=== PATIENT | female | born 1955 | race Hispanic/Latino ===

== ENCOUNTER 2019-03-22 07:29 | Day surgery (SDC) | payer OTHER ==
--- OUTSIDE RECORDS SUMMARY | 2019-03-22 07:31 | XMS REPORT | Clinical Summary ---
:1955 Author Organization [facility] Address [address] [place] [address] Care Team Providers Name Role Phone Unavailable Primary Care Provider Unavailable Allergies Not on File Medications Not on file Active Problems Not on file Encounters Date Type Specialty Care Team Description 01/21/2019 Hospital Encounter Radiology Greg Trinidad Chronic left-sided low back pain with left-sided sciatica; MD Ankit Chronic midline low back pain with left-sided sciatica 01/21/2019 Hospital Encounter Radiology Greg Trinidad Chronic left-sided low back pain with left-sided sciatica; MD Ankit Chronic midline low back pain with left-sided sciatica 01/21/2019 Hospital Encounter Radiology Greg Trinidad Chronic midline low MD Ankit back pain with left-sided sciatica 01/21/2019 Hospital Encounter Radiology Greg Trinidad Chronic midline low MD Ankit back pain with left-sided sciatica 01/21/2019 Outside Orders Central Scheduling Greg Trinidad Chronic left- sided low back pain with left-sided sciatica (Primary Dx); MD Ankit Chronic midline low back pain with left-sided sciatica 01/21/2019 Outside Orders Central Scheduling Greg Trinidad Chronic midline low MD Ankit back pain with left-sided sciatica (Primary Dx) after 03/21/2018 Social History Tobacco Use Types Packs/Day Years Used Date Never Assessed Sex Assigned at Date Recorded Not on file Job Start Date Occupation Industry Not on file Not on file Not on file Travel History Travel Start Travel End No recent travel history available. Last Filed Vital Signs Not on file Plan of Treatment Not on file Procedures Procedure Name Priority Date/Time Associated Diagnosis Comments XR LUMBAR SPINE Routine 01/21/2019 12:19 PM Chronic left-sided Results for this COMP WITH FLEX&EXT CDT low back pain with procedure are in left-sided sciatica the results Chronic midline low section. back pain with left-sided sciatica after 03/21/2018 Results XR lumbar spine comp with flex & ext (01/21/2019 12:19 PM CDT) Specimen Narrative Performed At FINAL REPORT [facility] LUMBAR SPINE X-RAY - SEVEN VIEWS HISTORY: chronic midline low back pain with left sided sciatica COMPARISON: None available. FINDINGS: Bones: No acute displaced fracture. Osseous alignment is within normal limits. No instability on flexion and extension views. Joints: Moderate disc space narrowing and foraminal narrowing at L5-S1. The remaining lumbar spine is unremarkable. Soft tissues: The soft tissues appear unremarkable. IMPRESSION: Moderate disc space narrowing and foraminal narrowing at L5-S1. Signed: Lc Austin MD Report Verified Date/Time:01/21/2019 13:16:54 Procedure Note Interface, External Ris In - 01/21/2019 1:19 PM CDT FINAL REPORT LUMBAR SPINE X-RAY - SEVEN VIEWS HISTORY: chronic midline low back pain with left sided sciatica COMPARISON: None available. FINDINGS: Bones: No acute displaced fracture. Osseous alignment is within normal limits. No instability on flexion and extension views. Joints: Moderate disc space narrowing and foraminal narrowing at L5-S1. The remaining lumbar spine is unremarkable. Soft tissues: The soft tissues appear unremarkable. IMPRESSION: Moderate disc space narrowing and foraminal narrowing at L5-S1. Signed: Lc Austin MD Report Verified Date/Time: 01/21/2019 13:16:54 Performing Organization Address City/State/Zipcode Phone Number [facility] after 03/21/2018 Insurance Payer Benefit Plan / Group Subscriber ID Type Phone Address [facility] CHO[facility] xxxxxxxxxxxx HMO/POS [phone] CHOICE EXCHANGE
--- OUTSIDE RECORDS SUMMARY | 2019-03-22 07:32 | XMS REPORT ---
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
--- OUTSIDE RECORDS SUMMARY | 2019-03-22 07:32 | XMS REPORT ---
:1955 Author Organization eClinicalWorks Care Team Providers Name Role Phone Prosper Jefferson Provider Role Unavailable Allergies No Known Allergies [...]
--- OUTSIDE RECORDS SUMMARY | 2019-03-22 07:32 | XMS REPORT ---
:1955 Author Organization eClinicalWorks Care Team Providers Name Role Phone Nicholas Martinez Provider Role Unavailable Allergies, Adverse Reactions, Alerts Substance Reaction Event Type N.K.D.A. Info Not Available Non Drug Allergy Problems Problem Type Condition Code Onset Dates Condition Status Assessment 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 classified elsewhere without behavioral disturbance Assessment Mixed hyperlipidemia E78.2 Active Assessment Depression with anxiety F41.8 Active Assessment Prediabetes R73.03 Active Assessment Adult BMI 29.0-29.9 kg/sq m Z68.29 Active Assessment Alzheimer''s disease, unspecified G30.9 Active Problem Mixed hyperlipidemia E78.2 Active Problem 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 classified elsewhere without behavioral disturbance Problem Depression with anxiety F41.8 Active Assessment HTN, goal below 140/90 I10 Active Problem HTN, goal below 140/90 I10 Active Problem Alzheimer''s disease, unspecified G30.9 Active Medications Medication Code Code Instructions Start End Status Dosage System Date Date Atorvastatin [facility] 99287213167 10 MG Orally Active 1 tablet Calcium Once a day Propranolol HCl ND 99948455223 10 MG Orally Active 1 tablet Once a day on an empty stomach Memantine HCl ND 08475927919 10 MG Orally Active 1 tablet Twice a day Donepezil HCl ND 28870579208 10 MG Orally Active 2 tablet Twice a day at bedtime Methocarbamol [facility] 73298308405 500 MG Orally Active 1 tablet Three times a day Results No Known Results Summary Purpose eClinicalWorks Submission
--- OUTSIDE RECORDS SUMMARY | 2019-03-22 07:32 | XMS REPORT ---
:1955 Author Organization eClinicalWorks Care Team Providers Name Role Phone Nicholas Martinez Provider Role Unavailable Allergies, Adverse Reactions, Alerts Substance Reaction Event Type N.K.D.A. Info Not Available Non Drug Allergy Problems Problem Type Condition Code Onset Dates Condition Status Assessment Depression with anxiety F41.8 Active Assessment HTN, goal below 140/90 I10 Active Assessment Mixed hyperlipidemia E78.2 Active Problem Mixed hyperlipidemia E78.2 Active Problem 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 classified elsewhere without behavioral disturbance Problem Depression with anxiety F41.8 Active Assessment Well adult on routine health check Z00.00 Active Problem HTN, goal below 140/90 I10 Active Problem Alzheimer''s disease, unspecified G30.9 Active Assessment Refused influenza vaccine Z28.21 Active Assessment Encounter for screening for other Z11.59 Active viral diseases Assessment Need for Tdap vaccination Z23 Active Assessment Adult BMI 29.0-29.9 kg/sq m Z68.29 Active Assessment Screening for colon cancer Z12.11 Active Assessment Alzheimer''s disease, unspecified G30.9 Active Assessment Screening mammogram, encounter for Z12.31 Active Assessment 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 classified elsewhere without behavioral disturbance Medications Medication Code Code Instructions Start End Status Dosage System Date Date Donepezil HCl [facility] 23091553956 10 MG Orally Active 2 tablet Twice a day at bedtime Methocarbamol [facility] [address]-34 500 MG Orally Active 1 tablet Three times a day Memantine HCl ND 01469820892 10 MG Orally Active 1 tablet Twice a day Atorvastatin ND 55747835313 10 MG Orally Active 1 tablet Calcium Once a day Propranolol HCl ND 11449745830 10 MG Orally Active 1 tablet Once a day on an empty stomach Results No Known Results Immunizations Vaccine Administration Date TDAP > 7 Years-Adacel February 12, 2019 Summary Purpose eClinicalWorks Submission
--- OUTSIDE RECORDS SUMMARY | 2019-03-22 07:32 | XMS REPORT ---
:1955 Author Organization eClinicalWorks Care Team Providers Name Role Phone Prosper Jefferson Provider Role Unavailable Allergies, Adverse Reactions, Alerts Substance Reaction Event Type N.K.D.A. Info Not Available Non Drug Allergy Problems Problem Type Condition Code Onset Dates Condition Status Problem Mixed hyperlipidemia E78.2 Active Problem 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 classified elsewhere without behavioral disturbance Problem Depression with anxiety F41.8 Active Assessment Encounter for screening colonoscopy Z12.11 Active Problem HTN, goal below 140/90 I10 Active Problem Alzheimer''s disease, unspecified G30.9 Active Medications Medication Code Code Instructions Start End Status Dosage System Date Date Methocarbamol ND 93446140666 500 MG Orally Active 1 tablet Three times a day Memantine HCl ND 77547830229 10 MG Orally Active 1 tablet Twice a day Atorvastatin ND 14381945801 10 MG Orally Active 1 tablet Calcium Once a day Propranolol HCl ND 72086783400 10 MG Orally Active 1 tablet Once a day on an empty stomach Donepezil HCl ND 27794709002 10 MG Orally Active 2 tablet Twice a day at bedtime Results No Known Results Summary Purpose eClinicalWorks Submission
--- OUTSIDE RECORDS SUMMARY | 2019-03-22 07:32 | XMS REPORT ---
:1955 [facility] Address [address] [place] [address] Care Team Providers Name Role Phone Unavailable Unavailable Unavailable Problems This patient has no known problems. Allergies, Adverse Reactions, Alerts This patient has no known allergies or adverse reactions. Medications This patient has no known medications. Results Test Description Test Time Test Comments Text Results Atomic Results Result Comments RAD, SPINE, 2019-01-21 Reason for FINAL REPORT PATIENT ID: LUMBAR, COMPLETE, 13:16:00 Exam:->chronic midline [id number] LUMBAR SPINE WITH FLEX low back pain with X-RAY - SEVEN VIEWS left sided sciatica HISTORY: chronic midline low back pain with left sided sciatica COMPARISON: None available. FINDINGS:Bones:No acute displaced fracture. Osseous alignment is within normal limits. No instability on flexion and extension views. Joints:Moderate disc space narrowing and foraminal narrowing at L5-S1. The remaining lumbar spine is unremarkable. Soft tissues:The soft tissues appear unremarkable. IMPRESSION: Moderate disc space narrowing and foraminal narrowing at L5-S1. Signed: Lc Austin MDReport Verified Date/Time: 01/21/2019 13:16:54
[2019-03-22] MEDS ORDERED: Ringers Lactate 1,000 ML IV ONE (08:07)
[2019-03-22] MEDS ORDERED: PROPOFOL 200 MG/20 ML VIAL IV ONE (08:40)
[2019-03-22] MEDS ORDERED: LIDOCAINE 1% MPF 5 ML VIAL ONE (08:40)
--- NOTE | 2019-03-22 08:54 | ENDO RPT ---
[address], [address] COLONOSCOPY PROCEDURE REPORT EXAM DATE: 03/22/2019 PATIENT NAME: Halima Holloway MR #: [id number] BIRTHDATE: 1955 ATTENDING: Prosper Jefferson DR STATUS: outpatient WAREHOUSE TECHNICIAN: Henna Rouse RN, Desean Alejo RN, and Rex Rodrigues INDICATIONS: The patient is a 63 yr old Female here for a colonoscopy due to colon cancer screening PROCEDURE PERFORMED: Colonoscopy with biopsy MEDICATIONS: Per Anesthesia. ESTIMATED BLOOD LOSS: None CONSENT: The patient understands the risks and benefits of the procedure and understands that these risks include, but are not limited to: sedation, allergic reaction, infection, perforation and/or bleeding. Alternative means of evaluation and treatment include, among others: physical exam, x-rays, and/or surgical intervention. The patient elects to proceed with this endoscopic procedure. DESCRIPTION OF PROCEDURE: During intra-op preparation period all mechanical medical equipment was checked for proper function. Hand hygiene and appropriate measures for infection prevention was taken. Procedure, possible complications, alternatives including, but not limited to possibility of bleeding, perforation, tear, infection, sepsis, need for surgery, need for blood transfusion, were explained to the patient. After the risks, benefits and alternatives of the procedure were thoroughly explained, Informed consent was verified, confirmed and timeout was successfully executed by the treatment team. The patient was placed in the left lateral position. A digital rectal exam was performed and revealed internal hemorrhoids. After appropriate level of anesthesia, the scope was passed. The EC-[id number] ([id number]) endoscope was introduced through the anus and advanced to the cecum, which was identified by both the appendix and ileocecal valve. The quality of the prep was fair. The instrument was then slowly withdrawn as the colon was fully examined. Scope withdrawal time was 8 minutes. COLON FINDINGS: A 0.5 x 0.5cm patch of abnormal mucosa was found in the right colon. The mucosa was erythematous. A biopsy was performed using cold forceps. The colon mucosa was otherwise normal. Moderate sized internal hemorrhoids were found. Retroflexed views revealed no abnormalities. The scope was then completely withdrawn from the patient and the procedure terminated. ADVERSE EVENTS: There were no complications. IMPRESSIONS: 1. 0.5 x 0.5cm abnormal mucosa was found in the right colon; The mucosa was erythematous; biopsy was performed using cold forceps 2. The colon mucosa was otherwise normal 3. Moderate sized internal hemorrhoids RECOMMENDATIONS: 1. avoid NSAIDS for 2 weeks 2. await biopsy results 3. fiber rich diet 4. follow-up: office 2 week(s) 5. Monitor for any evidence of rectal bleeding. 6. hemorrhoidal hygiene 7. yearly hemoccult starting in 4 years RECALL: Return in 5 year(s) for Colonoscopy, pending biopsy results. Pending Biopsy Results Prosper Jefferson DR eSigned: Prosper Jefferson DR 03/22/2019 8:53 AM cc: CPT CODES: ICD9 CODES: PATIENT NAME: Halima Holloway MR#: [id number]
== END 2019-03-22 09:28 | disposition home or self-care (01) ==
LOC: OR 07:29
PROVIDERS: ATTEND Surgery
PROC: 0DBF8ZX Excision of Right Large Intestine, Via Natural or Artificial Opening Endoscopic, Diagnostic (ICD-10-PCS; principal; 2019-03-22 08:30)
DX: Z12.11 Encounter for screening for malignant neoplasm of colon (principal); K52.9 Noninfective gastroenteritis and colitis, unspecified; K64.8 Other hemorrhoids; E78.2 Mixed hyperlipidemia; I10 Essential (primary) hypertension; F41.8 Other specified anxiety disorders; G30.9 Alzheimer's disease, unspecified; F02.80 Dementia in other diseases classified elsewhere, unspecified severity, without behavioral disturbance, psychotic disturbance, mood disturbance, and anxiety; Z79.899 Other long term (current) drug therapy; Z80.0 Family history of malignant neoplasm of digestive organs
CPT/HCPCS: 88305; J2704

== ENCOUNTER 2019-05-31 08:38 | Emergency (ER) | payer OTHER ==
--- OUTSIDE RECORDS SUMMARY | 2019-05-31 08:43 | XMS REPORT | Clinical Summary ---
:1955 Author Organization [facility] Address [address] [place] [address] Care Team Providers Name Role Phone Unavailable [...] pain with left-sided sciatica (Primary Dx) after 05/30/2018 Social History Tobacco Use Types Packs/Day Years [...] section. back pain with left-sided sciatica after 05/30/2018 Results XR lumbar spine comp with flex & ext (01/21/2019 12:19 PM CDT) Specimen Narrative Performed At FINAL REPORT [facility] LUMBAR SPINE X-RAY - SEVEN VIEWS HISTORY: [...] 13:16:54 Performing Organization Address City/State/Zipcode Phone Number [facility] after 05/30/2018 Insurance Payer Benefit Plan / Group Subscriber ID Type Phone Address [facility] CHOICE xxxxxxxxxxxx HMO/POS [phone] CHOICE EXCHANGE
--- OUTSIDE RECORDS SUMMARY | 2019-05-31 08:43 | XMS REPORT ---
:1955 Author Organization eClinicalWorks Care Team Providers Name Role Phone [facility] Provider Role Unavailable Allergies No [...]
--- OUTSIDE RECORDS SUMMARY | 2019-05-31 08:43 | XMS REPORT ---
[...] Status Dosage System Date Date Donepezil HCl [facility] 61371124726 10 MG Orally Active 2 tablet Twice a day at bedtime Methocarbamol [facility] [address]-98 500 MG Orally Active 1 tablet Three times a day Memantine HCl ND 01510850226 10 MG Orally Active 1 tablet Twice a day Atorvastatin ND 61342713215 10 MG Orally Active 1 tablet Calcium Once a day Propranolol HCl ND 03365601764 10 MG Orally Active 1 tablet Once a day on an empty stomach Results No Known Results Immunizations Vaccine Administration Date TDAP > 7 Years-Adacel February 12, 2019 Summary Purpose eClinicalWorks Submission
--- OUTSIDE RECORDS SUMMARY | 2019-05-31 08:43 | XMS REPORT ---
:1955 [facility] Address [address] [place] [address] [address] [place] [address] Care Team Providers Name Role Phone Unavailable Unavailable Unavailable Problems This patient has no known problems. Allergies, Adverse Reactions, Alerts This patient has no known allergies or adverse reactions. Medications This patient has no known medications. Results Test Description Test Time Test Comments Text Results Atomic Results Result Comments RAD, SPINE, 2019-01-21 Reason for FINAL REPORT PATIENT ID: LUMBAR, COMPLETE, 13:16:00 Exam:->chronic midline [id number] LUMBAR SPINE WITH FLEX low back pain [...] foraminal narrowing at L5-S1. Signed: [facility] Verified Date/Time: 01/21/2019 13:16:54
--- OUTSIDE RECORDS SUMMARY | 2019-05-31 08:44 | XMS REPORT ---
[...] End Status Dosage System Date Date Atorvastatin [facility] 41480531535 10 MG Orally Active 1 tablet Calcium Once a day Propranolol HCl ND 17111804453 10 MG Orally Active 1 tablet Once a day on an empty stomach Memantine HCl ND 28535772644 10 MG Orally Active 1 tablet Twice a day Donepezil HCl ND 28828836403 10 MG Orally Active 2 tablet Twice a day at bedtime Methocarbamol [facility] 52617301484 500 MG Orally Active 1 tablet Three times a day Results No Known Results Summary Purpose eClinicalWorks Submission
--- OUTSIDE RECORDS SUMMARY | 2019-05-31 08:44 | XMS REPORT ---
[...] Problem Depression with anxiety F41.8 Active Assessment Follow-up exam V67.9 Active Problem HTN, goal below 140/90 I10 Active Problem Alzheimer''s disease, unspecified G30.9 Active Medications Medication Code Code Instructions Start End Status Dosage System Date Date Propranolol HCl [facility] 51392319118 10 MG Orally Active 1 tablet Once a day on an empty stomach Atorvastatin ND 75860985701 10 MG Orally Active 1 tablet Calcium Once a day Methocarbamol ND 92487806086 500 MG Orally Active 1 tablet Three times a day Donepezil HCl ND 28928060285 10 MG Orally Active 2 tablet Twice a day at bedtime Memantine HCl ND 96820714085 10 MG Orally Active 1 tablet Twice a day Results No Known Results Summary Purpose eClinicalWorks Submission
--- OUTSIDE RECORDS SUMMARY | 2019-05-31 08:44 | XMS REPORT ---
[...] Status Dosage System Date Date Methocarbamol ND 39823761730 500 MG Orally Active 1 tablet Three times a day Memantine HCl ND 74820768389 10 MG Orally Active 1 tablet Twice a day Atorvastatin ND 87357496617 10 MG Orally Active 1 tablet Calcium Once a day Propranolol HCl ND 91251592166 10 MG Orally Active 1 tablet Once a day on an empty stomach Donepezil HCl ND 29304055316 10 MG Orally Active 2 tablet Twice a day at bedtime Results No Known Results Summary Purpose eClinicalWorks Submission
--- OUTSIDE RECORDS SUMMARY | 2019-05-31 08:44 | XMS REPORT ---
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
[2019-05-31 09:14] LABS: Absolute Lymphocytes (CBC) 2.7 K/uL (0.7-4.9); Basophils % 0.6 % (0-1.3); Eosinophils % 0.4 % (0-4.4); Hematocrit 40.5 % (36.0-45.0); MPV 9.8 fL (7.6-11.3); Monocytes % 7.7 % (3.3-12.3); RBC Red Blood Cell Count 4.51 M/uL (3.86-4.86)
[2019-05-31] MEDS ORDERED: LORazepam 2 MG/ML VIAL ONE (09:16)
[2019-05-31 09:35] LABS: Protime INR 1.06
[2019-05-31 09:35] LABS: ALT/SGPT 24 U/L (12-78); AST/SGOT 15 U/L (15-37); Albumin 3.9 g/dL (3.4-5.0); Alkaline Phosphatase 74 U/L (45-117); BUN Blood Urea Nitrogen 17 mg/dL (7-18); Bicarbonate 24 mmol/L (21-32); Bilirubin Direct < 0.1 mg/dL (0-0.2); Bilirubin Total 0.2 mg/dL (0.2-1.0); Glucose Level 131 mg/dL (74-106); Lipase 242 U/L (73-393); NT PRO-BNP 48 pg/mL (<125); Potassium 3.3 mmol/L (3.5-5.1); Protein, Total 7.7 g/dL (6.4-8.2); Sodium Level 142 mmol/L (136-145); Troponin (Emerg Dept Use Only) < 0.02 ng/mL (0.0-0.045)
--- NOTE | 2019-05-31 09:49 | RAD REPORT ---
EXAM DESCRIPTION: Hector Single View05/31/2019 9:42 am CLINICAL HISTORY: Chest pain COMPARISON: none FINDINGS: The lungs appear clear of acute infiltrate. The heart is normal size IMPRESSION: No acute abnormalities displayed
--- NOTE | 2019-05-31 10:42 | EDPHYS ---
Physician Documentation [facility] Name: Halima Rao Age: 64 yrs Sex: Female : 1955 Arrival Date: 05/31/2019 Time: 08:40 Bed 4 Private MD: ED Physician Darren Kurtz HPI: 05/31 11:54 This 64 yrs old Female presents to ER via Wheelchair with complaints of gs Nausea, Dizziness, Vomiting. 11:54 Onset: The symptoms/episode began/occurred gradually. Possible causes: unknown. The gs symptoms are aggravated by nothing. The symptoms are alleviated by nothing. Associated signs and symptoms: Pertinent positives: palpitations, anxiety, hyperventilation. Severity of symptoms: At their worst the symptoms were severe in the emergency department the symptoms are unchanged. The patient has experienced similar episodes in the past, multiple times. says she gets these episodes about once a year. Historical: - Allergies: 08:50 No Known Allergies; tw2 - Home Meds: 08:50 Unable to obtain [Active]; tw2 - PMHx: 08:50 Unable to obtain; tw2 - PSHx: 08:50 None; tw2 - Immunization history:: Adult Immunizations. - Social history:: Smoking status: . - Ebola Screening: : Patient denies travel to an Ebola-affected area in the 21 days before illness onset. ROS: 11:54 All other systems are negative. gs Exam: 11:54 Head/Face: Normocephalic, atraumatic. Eyes: Pupils equal round and reactive to light, gs extra-ocular motions intact. Lids and lashes normal. Conjunctiva and sclera are non-icteric and not injected. Cornea within normal limits. Periorbital areas with no swelling, redness, or edema. ENT: Nares patent. No nasal discharge, no septal abnormalities noted. Tympanic membranes are normal and external auditory canals are clear. Oropharynx with no redness, swelling, or masses, exudates, or evidence of obstruction, uvula midline. Mucous membranes moist. Neck: Trachea midline, no thyromegaly or masses palpated, and no cervical lymphadenopathy. Supple, full range of motion without nuchal rigidity, or vertebral point tenderness. No Meningismus. Chest/axilla: Normal chest wall appearance and motion. Nontender with no deformity. No lesions are appreciated. Cardiovascular: Regular rate and rhythm with a normal S1 and S2. No gallops, murmurs, or rubs. Normal PMI, no JVD. No pulse deficits. Respiratory: Lungs have equal breath sounds bilaterally, clear to auscultation and percussion. No rales, rhonchi or wheezes noted. No increased work of breathing, no retractions or nasal flaring. Abdomen/GI: Soft, non-tender, with normal bowel sounds. No distension or tympany. No guarding or rebound. No evidence of tenderness throughout. Back: No spinal tenderness. No costovertebral tenderness. Full range of motion. Skin: Warm, dry with normal turgor. Normal color with no rashes, no lesions, and no evidence of cellulitis. MS/ Extremity: Pulses equal, no cyanosis. Neurovascular intact. Full, normal range of motion. Neuro: Awake and alert, GCS 15, oriented to person, place, time, and situation. Cranial nerves II-XII grossly intact. Motor strength 5/5 in all extremities. Sensory grossly intact. Cerebellar exam normal. Normal gait. 11:54 Constitutional: The patient appears alert, awake, anxious, uncomfortable. 11:54 ECG was reviewed by the Attending Physician. 12:09 ECG was reviewed by the Attending Physician. Vital Signs: 08:49 BP 108 / 88; Pulse 94; Resp 20; Temp 97.8(O); Pulse Ox 100% on R/A; Weight 68.04 kg tw2 (R); Height 5 ft. 7 in. (170.18 cm) (R); Pain 10/10; 09:36 BP 124 / 72; Pulse 67; Resp 19; Pulse Ox 90% on R/A; tw2 10:33 BP 104 / 71; Pulse 64; Resp 13; Pulse Ox 98% on R/A; aj1 08:49 Body Mass Index 23.49 (68.04 kg, 170.18 cm) tw2 09:36 pt placed on o2 via nc at this time, will continue to monitor tw2 MDM: 08:57 Patient medically screened. gs 11:54 Differential diagnosis: anxiety, palpitations,cad. Data reviewed: vital signs, nurses gs notes, lab test result(s), EKG, radiologic studies. Counseling: I had a detailed discussion with the patient and/or guardian regarding: the historical points, exam findings, and any diagnostic results supporting the discharge/admit diagnosis, lab results, radiology results, the need for outpatient follow up. Response to treatment: the patient's symptoms have resolved after treatment, and as a result, I will discharge patient. 05/31 08:58 Order name: Basic Metabolic Panel 05/31 08:58 Order name: CBC with Diff 05/31 08:58 Order name: LFT's 05/31 08:58 Order name: Magnesium; Complete Time: 10:37 05/31 08:58 Order name: NT PRO-BNP; Complete Time: 10:37 05/31 08:58 Order name: PT-INR; Complete Time: 10:37 05/31 08:58 Order name: Troponin (emerg Dept Use Only); Complete Time: 10:37 05/31 08:58 Order name: XRAY Chest (1 view); Complete Time: 10:37 05/31 08:58 Order name: EKG; Complete Time: 09:00 05/31 08:58 Order name: Lipase; Complete Time: 10:37 05/31 08:59 Order name: Basic Metabolic Panel; Complete Time: 10:37 EDMS 05/31 08:59 Order name: CBC with Automated Diff; Complete Time: 10:37 EDMN 05/31 08:59 Order name: Liver (Hepatic) Function; Complete Time: 10:37 EDMN 05/31 08:58 Order name: Cardiac monitoring; Complete Time: 09: 05/31 08:58 Order name: EKG - Nurse/Tech; Complete Time: : 05/31 08:58 Order name: IV Saline Lock; Complete Time: : 05/31 08:58 Order name: Labs collected and sent; Complete Time: : 05/31 08:58 Order name: O2 Per Protocol; Complete Time: : 05/31 08:58 Order name: O2 Sat Monitoring; Complete Time: : EC:09 Rate is 80 beats/min. Rhythm is regular. ME interval is normal. QRS interval is normal. gs QT interval is normal. T waves are Normal. No ST changes noted. Clinical impression: Normal ECG. Interpreted by me. Administered Medications: 09:09 Drug: Ativan 0.5 mg Route: IVP; Site: right antecubital; tw2 Disposition: 05/31/19 10:41 Discharged to Home. Impression: Palpitations. - Condition is Stable. - Discharge Instructions: Palpitations. - Medication Reconciliation Form, Thank You Letter, Antibiotic Education, Prescription Opioid Use form. - Follow up: Private Physician; When: 2 - 3 days; Reason: Re-evaluation by your physician. - Problem is new. - Symptoms have improved. Signatures: Dispatcher [employer] EDMN Farzaneh Campbell RN RN aj1 Arabella Dobbins RN RN tw2 Darren Kurtz MD MD Corrections: (The following items were deleted from the chart) 10:51 10:41 05/31/2019 10:41 Discharged to Home. Impression: Palpitations. Condition is aj1 Stable. Forms are Medication Reconciliation Form, Thank You Letter, Antibiotic Education, Prescription Opioid Use. Follow up: Private Physician; When: 2 - 3 days; Reason: Re-evaluation by your physician. Problem is new. Symptoms have improved. 12:09 11:54 Rate is 106 beats/min. Rhythm is regular, Sinus tachycardia. ME interval is gs prolonged. QRS interval is prolonged. QT interval is normal. Q waves are Old. No ST changes noted. Clinical impression: Abnormal EKG without significant change. Interpreted by me.
--- NOTE | 2019-05-31 10:42 | ER ---
Nurse's Notes [facility] Name: Halima Rao Age: 64 yrs Sex: Female : 1955 Arrival Date: 05/31/2019 Time: 08:40 Bed 4 Private MD: Diagnosis: Palpitations Presentation: 05/31 08:48 Presenting complaint: states: she was dizzy last night after caodaism, she tyra to tw2 work this morning, then they called me she had dizziness and vomiting, i think she has anxiety, she does have the beginning of alzheimers. Transition of care: patient was not received from another setting of care. Onset of symptoms was May 31, 2019. Risk Assessment: Do you want to hurt yourself or someone else? Patient reports no desire to harm self or others. Initial Sepsis Screen: Does the patient meet any 2 criteria? HR > 90 bpm. No. Patient's initial sepsis screen is negative. Does the patient have a suspected source of infection? No. Patient's initial sepsis screen is negative. Care prior to arrival: None. 08:48 Method Of Arrival: Wheelchair tw2 08:48 Acuity: RAZIA 3 tw2 Triage Assessment: 08:49 General: Appears well groomed, Behavior is anxious. Pain: Complains of pain in tw2 headache. Neuro: Reports dizziness, headache. GI: Reports nausea. Historical: - Allergies: 08:50 No Known Allergies; tw2 - Home Meds: 08:50 Unable to obtain [Active]; tw2 - PMHx: 08:50 Unable to obtain; tw2 - PSHx: 08:50 None; tw2 - Immunization history:: Adult Immunizations. - Social history:: Smoking status: . - Ebola Screening: : Patient denies travel to an Ebola-affected area in the 21 days before illness onset. Screenin:50 Abuse screen: Denies threats or abuse. Nutritional screening: No deficits noted. tw2 Tuberculosis screening: No symptoms or risk factors identified. Fall Risk None identified. Assessment: 08:45 General: Appears slender, Behavior is anxious. Pain: Complains of pain in headache. tw2 Neuro: Level of Consciousness is awake, alert, obeys commands, Oriented to person, place, time, situation. Cardiovascular: Heart tones S1 S2 Patient's skin is warm and dry. Respiratory: Airway is patent Respiratory effort is even, unlabored, Respiratory pattern is regular, symmetrical, Breath sounds are clear bilaterally. GI: Abdomen is flat, non-distended, Bowel sounds present X 4 quads. : No signs and/or symptoms were reported regarding the genitourinary system. EENT: No signs and/or symptoms were reported regarding the EENT system. Derm: No signs and/or symptoms reported regarding the dermatologic system. Musculoskeletal: Range of motion: intact in all extremities. 09:37 Reassessment: Patient appears in no apparent distress at this time. Patient and/or tw2 family updated on plan of care and expected duration. Pain level reassessed. Patient is alert, oriented x 3, equal unlabored respirations, skin warm/dry/pink. pt appears calm and is resting at this time. Patient states symptoms have improved. 10:32 Reassessment: Patient and/or family updated on plan of care and expected duration. Pain aj1 level reassessed. General: Appears in no apparent distress. comfortable, Behavior is calm, cooperative. Pain: Denies pain. Neuro: Level of Consciousness is awake, alert, obeys commands, Oriented to person, place, time, situation. Cardiovascular: Patient's skin is warm and dry. Rhythm is sinus rhythm. Respiratory: Airway is patent Respiratory effort is even, unlabored, Respiratory pattern is regular, symmetrical. Derm: No signs and/or symptoms reported regarding the dermatologic system. Skin is pink, warm \T\ dry. normal. Musculoskeletal: No signs and/or symptoms reported regarding the musculoskeletal system. Circulation, motion, and sensation intact. Vital Signs: 08:49 BP 108 / 88; Pulse 94; Resp 20; Temp 97.8(O); Pulse Ox 100% on R/A; Weight 68.04 kg tw2 (R); Height 5 ft. 7 in. (170.18 cm) (R); Pain 10/10; 09:36 BP 124 / 72; Pulse 67; Resp 19; Pulse Ox 90% on R/A; tw2 10:33 BP 104 / 71; Pulse 64; Resp 13; Pulse Ox 98% on R/A; aj1 08:49 Body Mass Index 23.49 (68.04 kg, 170.18 cm) tw2 09:36 pt placed on o2 via nc at this time, will continue to monitor tw2 ED Course: 08:40 Patient arrived in ED. rg4 08:43 Sole Lofton, RN is Primary Nurse. ph 08:45 Darren Kurtz MD is Attending Physician. 08:49 Triage completed. tw2 08:49 Arm band placed on. tw2 08:50 Bed in low position. Call light in reach. youth nutritional monitor on. Pulse ox on. NIBP on. tw2 09:43 XRAY Chest (1 view) In Process Unspecified. EDMS 10:51 No provider procedures requiring assistance completed. IV discontinued, intact, aj1 bleeding controlled, No redness/swelling at site. Pressure dressing applied. Administered Medications: 09:09 Drug: Ativan 0.5 mg Route: IVP; Site: right antecubital; tw2 Outcome: 10:41 Discharge ordered by . 10:51 Discharged to home ambulatory, with family. aj1 10:51 Condition: good 10:51 Discharge instructions given to patient, family, Instructed on discharge instructions, follow up and referral plans. Demonstrated understanding of instructions, follow-up care. 10:51 Patient left the ED. aj1 Signatures: Dispatcher [employer] EDTX Farzaneh Campbell RN RN aj1 Sole Lofton, RN RN Arabella Dobbins, RN RN tw2 Maureen Navarro rg4 Darren Kurtz MD MD
--- NOTE | 2019-05-31 15:37 | EKG ---
Test Date: 2019-05-31 Test Time: 08:57:04 Deportation Officer: OZ MEASUREMENT RESULTS: Intervals: Rate: 80 NM: 130 QRSD: 86 QT: 400 QTc: 461 [place]: P: 40 NM: 130 QRS: 22 T: 21 INTERPRETIVE STATEMENTS: Normal sinus rhythm Normal ECG No previous ECG available for comparison Electronically Signed On 05-31-19 15:35:24 CDT by Derek Baird
== END 2019-05-31 10:51 | disposition home or self-care (01) ==
LOC: ER 08:38
DX: R00.2 Palpitations (principal)
CPT/HCPCS: 36415; 71045; 80048; 80076; 83690; 83735; 83880; 84484; 85025; 85610; 93005; 96374; 99284

== ENCOUNTER 2020-02-05 19:50 | Inpatient (IN) | payer OTHER ==
--- OUTSIDE RECORDS SUMMARY | 2020-02-05 19:52 | XMS REPORT ---
[...] Status Dosage System Date Date Donepezil HCl [facility] 27129401202 10 MG Orally Active 2 tablet Twice a day at bedtime Methocarbamol [facility] [address]-19 500 MG Orally Active 1 tablet Three times a day Memantine HCl ND 75076121336 10 MG Orally Active 1 tablet Twice a day Atorvastatin ND 86486648839 10 MG Orally Active 1 tablet Calcium Once a day Propranolol HCl ND 94280859858 10 MG Orally Active 1 tablet Once a day on an empty stomach Results No Known Results Immunizations Vaccine Administration Date TDAP > 7 Years-Adacel February 12, 2019 Summary Purpose eClinicalWorks Submission
--- OUTSIDE RECORDS SUMMARY | 2020-02-05 19:52 | XMS REPORT ---
:1955 [facility] Address [address] [place] [address] [address]. [address] [place] [address] Care Team Providers Name Role Phone Unavailable Unavailable Unavailable Problems This patient has no known problems. Allergies, Adverse Reactions, Alerts This patient has no known allergies or adverse reactions. Medications This patient has no known medications. Results Test Description Test Time Test Comments Text Results Atomic Results Result Comments RAD, SPINE, 2019-01-21 Reason for FINAL REPORT PATIENT ID: LUMBAR, COMPLETE, 13:16:00 Exam:->chronic midline [id number] LUMBAR SPINE WITH FLEX low back pain [...]
--- OUTSIDE RECORDS SUMMARY | 2020-02-05 19:52 | XMS REPORT ---
:1955 Author Organization eClinicalWorks Care Team Providers Name Role Phone Martinez Replaced By [facility] Provider Role Unavailable Allergies No Known Allergies [...]
--- OUTSIDE RECORDS SUMMARY | 2020-02-05 19:53 | XMS REPORT ---
[...] Status Dosage System Date Date Methocarbamol ND 57340966902 500 MG Orally Active 1 tablet Three times a day Memantine HCl ND 24685664895 10 MG Orally Active 1 tablet Twice a day Atorvastatin ND 61684853805 10 MG Orally Active 1 tablet Calcium Once a day Propranolol HCl ND 87768128713 10 MG Orally Active 1 tablet Once a day on an empty stomach Donepezil HCl ND 75559471453 10 MG Orally Active 2 tablet Twice a day at bedtime Results No Known Results Summary Purpose eClinicalWorks Submission
--- OUTSIDE RECORDS SUMMARY | 2020-02-05 19:53 | XMS REPORT ---
[...] Status Dosage System Date Date Propranolol HCl [facility] 55997760687 10 MG Orally Active 1 tablet Once a day on an empty stomach Atorvastatin ND 39208648031 10 MG Orally Active 1 tablet Calcium Once a day Methocarbamol ND 71087442231 500 MG Orally Active 1 tablet Three times a day Donepezil HCl ND 18381581831 10 MG Orally Active 2 tablet Twice a day at bedtime Memantine HCl ND 70519896534 10 MG Orally Active 1 tablet Twice a day Results No Known Results Summary Purpose eClinicalWorks Submission
--- OUTSIDE RECORDS SUMMARY | 2020-02-05 19:53 | XMS REPORT ---
[...] End Status Dosage System Date Date Atorvastatin [facility] 07666353434 10 MG Orally Active 1 tablet Calcium Once a day Propranolol HCl ND 81336238055 10 MG Orally Active 1 tablet Once a day on an empty stomach Memantine HCl ND 24389756948 10 MG Orally Active 1 tablet Twice a day Donepezil HCl ND 25550114422 10 MG Orally Active 2 tablet Twice a day at bedtime Methocarbamol [facility] 55589242547 500 MG Orally Active 1 tablet Three times a day Results No Known Results Summary Purpose eClinicalWorks Submission
--- OUTSIDE RECORDS SUMMARY | 2020-02-05 19:53 | XMS REPORT ---
[...] End Status Dosage System Date Date Atorvastatin [facility] 25637195792 10 MG Orally Active 1 tablet Calcium Once a day Results No Known Results Summary Purpose eClinicalWorks Submission
--- OUTSIDE RECORDS SUMMARY | 2020-02-05 19:53 | XMS REPORT ---
:1955 Author Organization eClinicalWorks Care Team Providers Name Role Phone Juan Nicholas Provider Role Unavailable Allergies, Adverse Reactions, Alerts Substance Reaction Event Type N.K.D.A. 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 classified elsewhere without behavioral disturbance Problem HTN, goal below 140/90 I10 Active Assessment Alzheimer''s disease, unspecified G30.9 Active Assessment 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 classified elsewhere without behavioral disturbance Assessment Prediabetes R73.03 Active Assessment Depression with anxiety F41.8 Active Assessment Adult BMI 29.0-29.9 kg/sq m Z68.29 Active Assessment Mixed hyperlipidemia E78.2 Active Medications Medication Code Code Instructions Start End Status Dosage System Date Date Methocarbamol [facility] 74485140610 500 MG Orally Active 1 tablet Three times a day Donepezil HCl ND 02444428484 10 MG Orally Active 2 tablet Twice a day at bedtime Atorvastatin ND 98160546156 10 MG Orally Active 1 tablet Calcium Once a day Memantine HCl ND 51160826223 10 MG Orally Active 1 tablet Twice a day Propranolol HCl ND 07032204786 10 MG Orally Active 1 tablet Once a day on an empty stomach Results No Known Results Summary Purpose eClinicalWorks Submission
[2020-02-05] MEDS ORDERED: NA CHLORIDE 0.9% 250 ML ONE (20:48)
[2020-02-05] MEDS ORDERED: AZITHROMYCIN 500 MG INJ IVPB ONE (20:48)
[2020-02-05] MEDS ORDERED: CEFTRIAXONE/SWI 1gm 1 GM/10 ML SYR ONE (20:48)
[2020-02-05] MEDS ORDERED: NA CHLORIDE 0.9% 1,000 ML ONE (20:48)
--- NOTE | 2020-02-05 21:20 | RAD REPORT ---
EXAM DESCRIPTION: RAD - Chest Single View - 02/05/2020 9:01 pm CLINICAL HISTORY: Cough;Congestion;Dyspnea Chest pain. COMPARISON: Chest Single View dated 05/31/2019 FINDINGS: Portable technique limits examination quality. Mild bilateral pulmonary opacities are present which may represent interstitial pneumonia or pulmonar y edema. No focal consolidation typical of bacterial pneumonia is seen. The heart is upper limit norm al in size. No displaced fractures.
[2020-02-05 21:38] LABS: Absolute Lymphocytes (CBC) 0.8 K/uL (0.7-4.9); Basophils % 0.2 % (0-1.3); Hematocrit 36.4 % (36.0-45.0); Lymphocytes % 19.5 % (15.3-44.8); MPV 9.9 fL (7.6-11.3); Protime INR 1.11; RBC Red Blood Cell Count 4.02 M/uL (3.86-4.86)
[2020-02-05 21:47] LABS: Urine Blood NEGATIVE (NEG); Urine Glucose NEGATIVE (NEG); Urine Protein 2+ (NEG)
[2020-02-05 21:54] LABS: ALT/SGPT 30 U/L (12-78); AST/SGOT 28 U/L (15-37); Alkaline Phosphatase 52 U/L (45-117); BUN Blood Urea Nitrogen 9 mg/dL (7-18); Bicarbonate 28 mmol/L (21-32); Bilirubin Direct < 0.1 mg/dL (0-0.2); Bilirubin Total 0.1 mg/dL (0.2-1.0); Glucose Level 121 mg/dL (74-106); Magnesium 2.1 mg/dL (1.8-2.4); NT PRO-BNP 145 pg/mL (<125); Potassium 3.1 mmol/L (3.5-5.1); Protein, Total 6.7 g/dL (6.4-8.2); Sodium Level 139 mmol/L (136-145); Troponin (Emerg Dept Use Only) < 0.02 ng/mL (0.0-0.045)
--- NOTE | 2020-02-05 22:21 | ER ---
Nurse's Notes [facility] Name: Halima Rao Age: 64 yrs Sex: Female : 1955 Arrival Date: 02/05/2020 Time: 19:52 Bed 28 Private MD: Diagnosis: Fever, unspecified;Viral pneumonia, not elsewhere classified;Dyspnea;Hypokalemia Presentation: 02/04 19:59 Chief complaint: Patient states: "Since , I have body aches, some cough and no ca1 congestion. My throat bothers me". Coronavirus screen: Patient reports a subjective fever or greater than 100.4F, or cough, or shortness of breath, or difficulty breathing. Surgical mask placed on patient. Patient moved to private room, placed in contact and droplet isolation with eye protection until further assessment. Patient denies travel on a cruise ship or to a country the [facility] currently lists as an affected area. Patient denies contact with known and/or suspected case of COVID-19. Infection Prevention Nurse has been notified of patient in isolation for probable COVID-19. Ebola Screen: Patient negative for fever greater than or equal to 101.5 degrees Fahrenheit, and additional compatible Ebola Virus Disease symptoms Patient denies exposure to infectious person. Patient denies travel to an Ebola-affected area in the 21 days before illness onset. No symptoms or risks identified at this time. Initial Sepsis Screen: Does the patient meet any 2 criteria? No. Patient's initial sepsis screen is negative. Does the patient have a suspected source of infection? No. Patient's initial sepsis screen is negative. Risk Assessment: Do you want to hurt yourself or someone else? Patient reports no desire to harm self or others. Onset of symptoms was February 05, 2020. 19:59 Method Of Arrival: Wheelchair ca1 19:59 Acuity: RAZIA 3 ca1 20:04 Note Broadcast Supervisor #[id number]. ca1 Triage Assessment: 20:02 General: Appears uncomfortable, Behavior is calm, cooperative. Pain: Denies pain. ls4 Historical: - Allergies: 20:04 No Known Allergies; ca1 - Home Meds: 20:04 None [Active]; ca1 - PMHx: 20:04 None; ca1 - PSHx: 20:04 Hysterectomy; ca1 - Immunization history:: Adult Immunizations up to date, Flu vaccine is not up to date. - Social history:: Smoking status: Patient denies any tobacco usage or history of. - Family history:: not pertinent. Screenin:57 Abuse screen: Denies threats or abuse. Denies injuries from another. Nutritional ls4 screening: No deficits noted. Tuberculosis screening: No symptoms or risk factors identified. Fall Risk None identified. Assessment: 21:00 Reassessment: Patient appears in no apparent distress at this time. Patient is alert, ls4 oriented x 3, equal unlabored respirations, skin warm/dry/pink. 21:54 General: Appears uncomfortable. Neuro: Level of Consciousness is awake, alert, obeys ls4 commands, Oriented to person, place, time, situation. Cardiovascular: Denies Capillary refill < 3 seconds Patient's skin is warm and dry. Respiratory: Reports shortness of breath on exertion since 8 days cough that is non-productive, dry, hacking, persistent Airway is patent Respiratory effort is even, unlabored, Respiratory pattern is regular, Breath sounds are clear bilaterally. the patient has moderate shortness of breath. GI: Abdomen is round non-distended, Bowel sounds present X 4 quads. Abd is soft and non tender X 4 quads. : No deficits noted. No signs and/or symptoms were reported regarding the genitourinary system. Derm: Skin is pink, warm \\T\\ dry. Musculoskeletal: No deficits noted. No signs and/or symptoms reported regarding the musculoskeletal system. 23:15 Reassessment: Patient and/or family updated on plan of care and expected duration. Pain ls4 level reassessed. Patient is alert, oriented x 3, equal unlabored respirations, skin warm/dry/pink. PT MOVED TO ISOLATION ROOM PER PROTOCOL. PT PLACED ON O2 3 L NC FOR SA02 88 PER CENT WITH GOOD WAVE FORM. DR OH NOTIFIED. 02/05 13:30 Reassessment: Unable to give report at this time, JUNE Morataya is at lunch. rb1 13:55 Reassessment: Gave report to JUNE Morataya. Information from the SBAR was given. All rb1 questions asked and answered. Vital Signs: 02/04 19:59 BP 106 / 55; Pulse 89; Resp 17 S; Temp 99(TE); Pulse Ox 95% on R/A; Weight 72.57 kg ca1 (R); Height 5 ft. 3 in. (160.02 cm) (R); 20:02 BP 103 / 55; Pulse 75; Resp 18; Pulse Ox 99% on R/A; Pain 0/10; ls4 21:01 BP 114 / 59; Pulse 76; Resp 18; Pulse Ox 93% on R/A; Pain 0/10; ls4 22:00 BP 138 / 62; Pulse 71; Resp 19; Temp 101.1; Pulse Ox 92% on 3 lpm NC; Pain 0/10; ls4 23:00 BP 116 / 95; Pulse 83; Resp 19; Pain 0/10; ls4 02/05 00:00 BP 115 / 70; Pulse 76; Resp 14; Pulse Ox 98% on 3 lpm NC; Pain 0/10; ls4 00:45 Temp 98.1(O); jb4 02/04 19:59 Body Mass Index 28.34 (72.57 kg, 160.02 cm) ca1 ED Course: 02/04 19:52 Patient arrived in ED. ds1 19:59 Arm band placed on right wrist. ca1 20:00 Patient has correct armband on for positive identification. Bed in low position. Call ls4 light in reach. Side rails up X 1. 20:00 [employer]T [employer]. commercial director on. Pulse ox on. NIBP on. Verbal reassurance given.ls4 20:00 No provider procedures requiring assistance completed. ls4 20:02 Triage completed. ca1 20:02 Tyler Oh MD is Attending Physician. [facility] 20:12 Emily Altamirano, JUNE is Primary Nurse. ls4 21:01 XRAY Chest (1 view) In Process Unspecified. EDMS 21:02 Urine collected: EKG done, by ED staff, reviewed by Tyler Oh MD. Inserted saline ls4 lock: 20 gauge in right antecubital area, using aseptic technique. Blood collected. Patient maintains SpO2 saturation greater than 95% on room air. 22:13 Masha Pillai MD is Hospitalizing Provider. rafael 02/05 01:11 Patient admitted, IV remains in place. jb4 08:47 SPUTUM. mh5 09:33 Health Dept notified COVID swab sent to lab/ PUI # [id number]/ lab notified. eb 14:36 No provider procedures requiring assistance completed. Patient admitted, IV remains in rb1 place. Administered Medications: 02/04 20:13 Drug: Rocephin 1 grams Route: IV; Rate: per protocol; Site: right antecubital; ls4 21:10 Drug: Zithromax 500 mg Route: IVPB; Infused Over: 1 hrs; Site: right antecubital; ls4 :26 Drug: NS 0.9% 1000 ml Route: IV; Rate: 1 bolus; Site: right antecubital; ls4 23:16 Drug: Potassium Effervescent Tablet 50 mEq Route: PO; ls4 23:30 Follow up: Response: No adverse reaction ls4 23:16 Drug: Tylenol 650 mg Route: PO; ls4 23:45 Follow up: Response: No adverse reaction; Temperature is decreased [facility] 02/05 00:34 Drug: Albuterol HFA Inhaler 2 puffs Route: Inhalation; ls4 Outcome: 02/04 22:20 Decision to Hospitalize by Provider. [facility] 02/05 01:11 Admitted to ER Hold. Please see [facility] for further documentation. jb4 Condition: stable Discharge instructions given to patient, Instructed on the need for admit, Demonstrated understanding of instructions. 14:35 Patient left the ED. rb1 14:36 Admitted to Tele accompanied by tech, via stretcher, room 416, with chart, Report rb1 called to JUNE Morataya 14:36 Condition: stable 14:36 Instructed on the need for admit. Signatures: Dispatcher [employer] Tyler Thurston MD MD cha Sanford, Demi ds1 Layla Gordon RN RN rb1 Jair Robles RN RN jb4 Martinez, Maria Estella Rose Lisa, RN RN ls4 Radha Leigh RN RN ca1 Corrections: (The following items were deleted from the chart) 02/04 20:46 19:59 Acuity: RAZIA 4 ca1 ca1
--- NOTE | 2020-02-05 22:21 | EDPHYS ---
Physician Documentation [facility] Name: Halima Rao Age: 64 yrs Sex: Female : 1955 Arrival Date: 02/05/2020 Time: 19:52 Bed 28 Private MD: ED Physician Tyler Davalos HPI: 02/04 20:34 This 64 yrs old Female presents to ER via Wheelchair with complaints of Flu rafael Symptoms. 20:34 malaise, fever , uri, weakness. The patient or guardian reports cough, described as rafael mild, difficulty breathing, flu symptoms, arthralgias, low-grade fever, myalgias. Onset: The symptoms/episode began/occurred 7 day(s) ago. Severity of symptoms: At their worst the symptoms were mild, moderate, in the emergency department the symptoms are actually worse. Modifying factors: The symptoms are alleviated by nothing, the symptoms are aggravated by exertion. The patient reports fever, that was measured at 100 degrees Fahrenheit. Associated signs and symptoms: Pertinent positives: fever, rhinorrhea, sore throat. Historical: - Allergies: 20:04 No Known Allergies; ca1 - Home Meds: 20:04 None [Active]; ca1 - PMHx: 20:04 None; ca1 - PSHx: 20:04 Hysterectomy; ca1 - Immunization history:: Adult Immunizations up to date, Flu vaccine is not up to date. - Social history:: Smoking status: Patient denies any tobacco usage or history of. - Family history:: not pertinent. ROS: 20:34 Constitutional: Negative for fever, chills, and weight loss, Eyes: Negative for injury, rafael pain, redness, and discharge, ENT: Negative for injury, pain, and discharge, Neck: Negative for injury, pain, and swelling, Cardiovascular: Negative for chest pain, palpitations, and edema, Abdomen/GI: Negative for abdominal pain, nausea, vomiting, diarrhea, and constipation, Back: Negative for injury and pain, : Negative for injury, bleeding, discharge, and swelling, MS/Extremity: Negative for injury and deformity, Skin: Negative for injury, rash, and discoloration, Psych: Negative for depression, anxiety, suicide ideation, homicidal ideation, and hallucinations, Allergy/Immunology: Negative for hives, rash, and allergies, Endocrine: Negative for neck swelling, polydipsia, polyuria, polyphagia, and marked weight changes, Hematologic/Lymphatic: Negative for swollen nodes, abnormal bleeding, and unusual bruising. 20:34 Respiratory: Positive for cough, shortness of breath, at rest. 20:34 Neuro: Positive for weakness. Exam: 20:34 Constitutional: This is a well developed, well nourished patient who is awake, alert, rafael and in no acute distress. Head/Face: Normocephalic, atraumatic. Eyes: Pupils equal round and reactive to light, extra-ocular motions intact. Lids and lashes normal. Conjunctiva and sclera are non-icteric and not injected. Cornea within normal limits. Periorbital areas with no swelling, redness, or edema. ENT: Nares patent. No nasal discharge, no septal abnormalities noted. Tympanic membranes are normal and external auditory canals are clear. Oropharynx with no redness, swelling, or masses, exudates, or evidence of obstruction, uvula midline. Mucous membranes moist. Neck: Trachea midline, no thyromegaly or masses palpated, and no cervical lymphadenopathy. Supple, full range of motion without nuchal rigidity, or vertebral point tenderness. No Meningismus. Chest/axilla: Normal chest wall appearance and motion. Nontender with no deformity. No lesions are appreciated. Cardiovascular: Regular rate and rhythm with a normal S1 and S2. No gallops, murmurs, or rubs. Normal PMI, no JVD. No pulse deficits. Abdomen/GI: Soft, non-tender, with normal bowel sounds. No distension or tympany. No guarding or rebound. No evidence of tenderness throughout. Back: No spinal tenderness. No costovertebral tenderness. Full range of motion. Female : Normal external genitalia. Skin: Warm, dry with normal turgor. Normal color with no rashes, no lesions, and no evidence of cellulitis. MS/ Extremity: Pulses equal, no cyanosis. Neurovascular intact. Full, normal range of motion. Neuro: Awake and alert, GCS 15, oriented to person, place, time, and situation. Cranial nerves II-XII grossly intact. Motor strength 5/5 in all extremities. Sensory grossly intact. Cerebellar exam normal. Normal gait. Psych: Awake, alert, with orientation to person, place and time. Behavior, mood, and affect are within normal limits. 20:34 Respiratory: the patient does not display signs of respiratory distress, Respirations: normal, no acute changes, Breath sounds: bronchial sounds, that are mild, are scattered, rhonchi, that are mild, stridor, is not appreciated, + upper airway congestion. Respiratory rate: 18 Vital Signs: 19:59 BP 106 / 55; Pulse 89; Resp 17 S; Temp 99(TE); Pulse Ox 95% on R/A; Weight 72.57 kg ca1 (R); Height 5 ft. 3 in. (160.02 cm) (R); 20:02 BP 103 / 55; Pulse 75; Resp 18; Pulse Ox 99% on R/A; Pain 0/10; ls4 21:01 BP 114 / 59; Pulse 76; Resp 18; Pulse Ox 93% on R/A; Pain 0/10; ls4 22:00 BP 138 / 62; Pulse 71; Resp 19; Temp 101.1; Pulse Ox 92% on 3 lpm NC; Pain 0/10; ls4 23:00 BP 116 / 95; Pulse 83; Resp 19; Pain 0/10; ls4 02/05 00:00 BP 115 / 70; Pulse 76; Resp 14; Pulse Ox 98% on 3 lpm NC; Pain 0/10; ls4 00:45 Temp 98.1(O); jb4 02/04 19:59 Body Mass Index 28.34 (72.57 kg, 160.02 cm) ca1 MDM: 02/04 20:02 Patient medically screened. rafael 20:04 Patient medically screened. [facility] 20:37 Data reviewed: vital signs, nurses notes, lab test result(s), EKG, radiologic studies, rafael plain films. 02/04 20:34 Order name: Basic Metabolic Panel; Complete Time: 22:11 [facility] 02/04 20:34 Order name: CBC with Diff; Complete Time: 22:11 [facility] 02/04 20:34 Order name: LFT's; Complete Time: 22:11 [facility] 02/04 20:34 Order name: Magnesium; Complete Time: 22:11 [facility] 02/04 20:34 Order name: NT PRO-BNP; Complete Time: 22:11 [facility] 02/04 20:34 Order name: PT-INR; Complete Time: 22:11 [facility] 02/04 20:34 Order name: Troponin (emerg Dept Use Only); Complete Time: 22:11 [facility] 02/04 20:34 Order name: Blood Culture Adult (2) [facility] 02/04 20:34 Order name: Influenza Screen (a \T\ B); Complete Time: 22:11 [facility] 02/04 20:34 Order name: Strep; Complete Time: 22:11 [facility] 02/04 20:34 Order name: Urine Culture [facility] 02/04 20:34 Order name: Misc. Lab Test; Complete Time: 06:35 [facility] 02/04 20:34 Order name: Lactate; Complete Time: 22:11 [facility] 02/04 21:29 Order name: Urine Dipstick--Ancillary (enter results) [facility] 02/04 21:30 Order name: Urine Dipstick-Ancillary; Complete Time: 22:11 [facility] 02/04 21:36 Order name: Throat Culture [facility] 02/04 22:54 Order name: CBC with Automated Diff [facility] 02/04 22:54 Order name: CBC with Automated Diff; Complete Time: 06:35 [facility] 02/04 22:54 Order name: Comprehensive Metabolic Panel [facility] 02/04 22:54 Order name: Comprehensive Metabolic Panel; Complete Time: 06:35 [facility] 02/04 22:54 Order name: Lactate [facility] 02/04 22:54 Order name: Lactate; Complete Time: 06:35 [facility] 02/04 22:54 Order name: Lipid Profile [facility] 02/04 22:54 Order name: Lipid Profile; Complete Time: 06:35 [facility] 02/04 22:54 Order name: Magnesium [facility] 02/04 22:54 Order name: Magnesium; Complete Time: 06:35 [facility] 02/04 22:54 Order name: Phosphorus [facility] 02/04 22:54 Order name: Phosphorus; Complete Time: 06:35 [facility] 02/04 22:54 Order name: NT PRO-BNP [facility] 02/04 22:54 Order name: NT PRO-BNP; Complete Time: 06:35 [facility] 02/04 20:34 Order name: XRAY Chest (1 view); Complete Time: 22:11 [facility] 02/04 20:34 Order name: EKG; Complete Time: 20:35 [facility] 02/04 20:34 Order name: Cardiac monitoring; Complete Time: 21:27 [facility] 02/04 20:34 Order name: EKG - Nurse/Tech; Complete Time: 21:52 [facility] 02/04 20:34 Order name: IV Saline Lock; Complete Time: 21:27 [facility] 02/04 20:34 Order name: Labs collected and sent; Complete Time: 21:27 [facility] 02/04 20:34 Order name: O2 Per Protocol; Complete Time: 21:27 [facility] 02/04 20:34 Order name: O2 Sat Monitoring; Complete Time: 00:41 [facility] 02/04 20:34 Order name: Urine Dipstick-Ancillary (obtain specimen); Complete Time: 21:27 [facility] 02/04 20:34 [facility] Complete Time: 06:47 [facility] 02/04 22:54 Order name: CONS Physician Consult [facility] 02/04 22:54 Order name: Heart Healthy [facility] 02/04 22:54 Order name: Protime (+INR) [facility] 02/04 22:54 Order name: Protime (+INR); Complete Time: 06:35 [facility] 02/04 22:54 Order name: PTT, Activated Partial Thromb [facility] 02/04 22:54 Order name: PTT, Activated Partial Thromb; Complete Time: 06:35 EDMS Administered Medications: 20:13 Drug: Rocephin 1 grams Route: IV; Rate: per protocol; Site: right antecubital; ls4 21:10 Drug: Zithromax 500 mg Route: IVPB; Infused Over: 1 hrs; Site: right antecubital; ls4 21:26 Drug: NS 0.9% 1000 ml Route: IV; Rate: 1 bolus; Site: right antecubital; ls4 23:16 Drug: Potassium Effervescent Tablet 50 mEq Route: PO; ls4 23:30 Follow up: Response: No adverse reaction ls4 23:16 Drug: Tylenol 650 mg Route: PO; ls4 23:45 Follow up: Response: No adverse reaction; Temperature is decreased ls4 02/05 00:34 Drug: Albuterol HFA Inhaler 2 puffs Route: Inhalation; ls4 Disposition: 02/05/20 22:20 Hospitalization ordered by Masha Pillai for Inpatient Admission. Preliminary diagnosis are Fever, unspecified, Viral pneumonia, not elsewhere classified, Dyspnea, Hypokalemia. - Bed requested for Telemetry/MedSurg (Inpatient). - Status is Inpatient Admission. rb1 - Condition is Fair. - Problem is new. - Symptoms have improved. Signatures: Dispatcher [employer] EDMS Brenda Catherine RN RN dw Tyler Davalos MD MD cha Lasagna, Tonya RN RN tl1 Tyler Veras PA PA cp Barber, Rebecca, RN RN rb1 Emily Altamirano RN RN ls4 Radha Leigh RN RN ca1 Corrections: (The following items were deleted from the chart) 02/04 22:21 22:20 Hospitalization Ordered by Masha Pillai MD for Inpatient Admission. Preliminary [facility] diagnosis is Fever, unspecified; Viral pneumonia, not elsewhere classified; Dyspnea. Bed requested for Telemetry/MedSurg (Inpatient). Status is Inpatient Admission. Condition is Fair. Problem is new. Symptoms have improved. [facility] 22:57 22:21 02/05/2020 22:20 Hospitalization Ordered by Masha Pillai MD for Inpatient tl1 Admission. Preliminary diagnosis is Fever, unspecified; Viral pneumonia, not elsewhere classified; Dyspnea; Hypokalemia. Bed requested for Telemetry/MedSurg (Inpatient). Status is Inpatient Admission. Condition is Fair. Problem is new. Symptoms have improved. [facility] 02/05 13:00 02/04 22:57 02/05/2020 22:20 Hospitalization Ordered by Masha Pillai MD for Inpatient dw Admission. Preliminary diagnosis is Fever, unspecified; Viral pneumonia, not elsewhere classified; Dyspnea; Hypokalemia. Bed requested for [facility] ER HOLD. Status is Inpatient Admission. Condition is Fair. Problem is new. Symptoms have improved. 1 02/05 14:35 13:00 02/05/2020 22:20 Hospitalization Ordered by Masha Pillai MD for Inpatient rb1 Admission. Preliminary diagnosis is Fever, unspecified; Viral pneumonia, not elsewhere classified; Dyspnea; Hypokalemia. Bed requested for Telemetry/MedSurg (Inpatient). Status is Inpatient Admission. Condition is Fair. Problem is new. Symptoms have improved.
[2020-02-05] MEDS ORDERED: ALBUTEROL INHALER 60 PUFF/8 GM IH PRN (22:46)
[2020-02-05] MEDS ORDERED: ACETAMINOPHEN 500 MG TAB ONE (22:49)
[2020-02-05] MEDS ORDERED: POTASSIUM 25 MEQ EFFERV TAB ONE (22:57)
[2020-02-05] MEDS ORDERED: ALBUTEROL INHALER 60 PUFF/8 GM IH ONE (23:42)
[2020-02-06 00:28] VITALS: BMI 28.1
[2020-02-06] MEDS: NA CHLORIDE 0.9% 1,000 ML IV SCH ×3 (01:50→23:23)
[2020-02-06] MEDS ORDERED: NA CHLORIDE 0.9% 1,000 ML ONE ×2 (01:53→12:27)
[2020-02-06 04:51] LABS: Absolute Lymphocytes (CBC) 0.9 K/uL (0.7-4.9); Basophils % 0.2 % (0-1.3); Hematocrit 32.5 % (36.0-45.0); Lymphocytes % 20.9 % (15.3-44.8); MPV 9.7 fL (7.6-11.3); RBC Red Blood Cell Count 3.64 M/uL (3.86-4.86)
[2020-02-06 04:55] LABS: Protime INR 1.09
[2020-02-06 05:06] LABS: ALT/SGPT 28 U/L (12-78); AST/SGOT 27 U/L (15-37); Albumin 2.7 g/dL (3.4-5.0); Alkaline Phosphatase 48 U/L (45-117); BUN Blood Urea Nitrogen 8 mg/dL (7-18); Bicarbonate 29 mmol/L (21-32); Bilirubin Total 0.1 mg/dL (0.2-1.0); Glucose Level 117 mg/dL (74-106); HDL Cholesterol 57 mg/dL (40-60); LDL Cholesterol, Calculated 36 (<130); Magnesium 2.1 mg/dL (1.8-2.4); NT PRO-BNP 194 pg/mL (<125); Phosphorus 2.5 mg/dL (2.5-4.9); Potassium 3.8 mmol/L (3.5-5.1); Sodium Level 142 mmol/L (136-145)
[2020-02-06] MEDS: ACETAMINOPHEN 500 MG TAB PO PRN ×4 (06:30→23:23)
[2020-02-06] MEDS ORDERED: ACETAMINOPHEN 500 MG TAB ONE ×2 (06:35→12:27)
--- NOTE | 2020-02-06 07:47 | P.HP ---
Certification for Inpatient Patient admitted to: Inpatient With expected LOS: >2 Midnights Patient will require the following post-hospital care: None Practitioner: I am a practitioner with admitting privileges, knowledge of patient current condition, hospital course, and medical plan of care. Services: Services provided to patient in accordance with Admission requirements found in Title 42 Section 412.3 of the Code of Federal Regulations Patient History Date of Service: 02/05/20 Reason for admission: Fever, cough, congestion, and myalgia History of Present Illness: Patient is a 64-year-old female who came to the hospital with diffuse body aches , coughing, & congestion. Patient has been having fever and arthralgias. Patient had a flu test and strep test which were negative. Patient's chest x- ray which showed bilateral infiltrates. This was suggestive of a viral pneumonia. With the numerous cases of COVID-19, decision was made to admit the patient to the hospital for further testing and treatment. Pulmonary consultation as well. Patient will be admitted to the hospital for further monitoring of her viral pneumonia pending results of her COVID-19 Test. Allergies No Known Allergies Allergy (Unverified 02/16/16 02:10) Home Medications: NK [No Home Meds] 02/06/20 - Past Medical/Surgical History Diabetic: No Past Medical History: Patient denies medical history -: HYSTERECTOMY - Family History Father Family History: Reviewed- Non-Contributory - Social History Smoking Status: Never smoker Alcohol use: No CD- Drugs: No Caffeine use: No Place of Residence: Home Review of Systems 10-point ROS is otherwise unremarkable Physical Examination - Vital Signs Temperature: 100.3 F Blood Pressure: 118/79 Pulse: 80 Respirations: 22 Pulse Ox (%): 98 - Physical Exam General: Alert, In no apparent distress, Oriented x3 HEENT: Atraumatic, PERRLA, Mucous membr. moist/pink, EOMI, Sclerae nonicteric Neck: Supple, 2+ carotid pulse no bruit, No LAD, Without JVD or thyroid abnormality Respiratory: Diminished, Rhonchi/gurgles Cardiovascular: Regular rate/rhythm, Normal S1 S2, No murmurs Gastrointestinal: Normal bowel sounds, Soft and benign, Non-distended, No tenderness Musculoskeletal: No tenderness Integumentary: No rashes Neurological: Normal speech, Normal tone, Sensation intact, Cranial nerves 3-12 intact, Normal affect, Abnormal gait, Abnormal strength Lymphatics: No axilla or inguinal lymphadenopathy - Studies Laboratory Data (last 24 hrs) 02/05/20 21:07: PT 13.1 H, INR 1.11 02/05/20 21:07: WBC 3.9 L, Hgb 12.2, Hct 36.4, Plt Count 128 L 02/05/20 21:07: Sodium 139, Potassium 3.1 L, BUN 9, Creatinine 0.68, Glucose 121 H, Magnesium 2.1, Total Bilirubin 0.1 L, AST 28, ALT 30, Alkaline Phosphatase 52 Microbiology Data (last 24 hrs): 02/05/20 21:02 Blood - Blood Anaerobic Blood Culture - Final 02/05/20 21:07 Throat Group A Streptococcus Rapid Screen - Final 02/05/20 21:07 Nasopharnyx Influenza Type A Antigen Screen - Final 02/05/20 21:07 Nasopharnyx Influenza Type B Antigen Screen - Final Assessment & Plan - Problems (Diagnosis) (1) Exposure to SARS-associated coronavirus Current Visit: Yes Status: Acute (2) Viral pneumonia Current Visit: Yes Status: Acute - Plan 1. Continue with IV antibiotics 2. Awaiting sputum and blood culture and COVID-19 testing 3. Repeat chest x-ray 4. Will proceed with CT scan of the chest if pneumonia is not improved 5. Pulmonary consultation 6. Continue with nebs as needed 7. O2 per protocol 8. Continue with gentle hydration 9. Repeat labs including CBC and renal function in a.m. 10. GI and DVT prophylaxis Discharge Plan: Home Plan to discharge in: Greater than 2 days - Advance Directives Does patient have a Living Will: No Does patient have a Durable POA for Healthcare: No - Code Status/Comfort Care Code Status Assessed: Yes Code Status: Full Code Critical Care: No Time Spent Managing PTS Care (In Minutes): 35
[2020-02-06] MEDS: ENOXAPARIN 40 MG/0.4 ML SQ SCH (09:00)
[2020-02-06] MEDS: CEFTRIAXONE/SWI 1gm 1 GM/10 ML SYR IV SCH ×2 (09:00→19:54)
[2020-02-06] MEDS ORDERED: CEFTRIAXONE 1 GM/NS 50 ML 1 GM/50 ML BAG IV SCH (09:00)
[2020-02-06] MEDS ORDERED: CEFTRIAXONE/SWI 1gm 1 GM/10 ML SYR ONE (09:02)
[2020-02-06] MEDS ORDERED: ENOXAPARIN 40 MG/0.4 ML SQ ONE (09:02)
--- NOTE | 2020-02-06 10:03 | EKG ---
Test Date: 2020-02-05 Test Time: 21:47:34 Centrifugal Casting Machine Tender: YAYO MEASUREMENT RESULTS: Intervals: Rate: 76 MA: 122 QRSD: 86 QT: 382 QTc: 429 [place]: P: 40 MA: 122 QRS: 20 T: 19 INTERPRETIVE STATEMENTS: Normal sinus rhythm Normal ECG Compared to ECG 05/31/2019 08:57:04 No significant changes Electronically Signed On 02-06-20 10:02:53 CDT by Derek Baird
[2020-02-06] MEDS: POTASS/SODIUM PHOSPHATE 1 PKT POWD.PACK PO SCH ×3 (14:00→15:56)
--- NOTE | 2020-02-06 14:21 | P.PN ---
Subjective Date of Service: 02/06/20 Chief Complaint: Fever, cough, congestion, and myalgia Patient has been experiencing cough. She has fever up to 101. She denies chest pain or shortness of breath. Physical Examination - Vital Signs Temperature: 101.4 F Blood Pressure: 121/84 Pulse: 90 Respirations: 20 Pulse Ox (%): 93 - Physical Exam General: Alert, In no apparent distress, Oriented x3 HEENT: Mucous membr. moist/pink, Sclerae nonicteric Neck: Supple, JVD not distended Respiratory: Clear to auscultation bilaterally, Normal air movement Cardiovascular: No edema, Regular rate/rhythm, Normal S1 S2 Gastrointestinal: Normal bowel sounds, Soft and benign, Non-distended, No tenderness Musculoskeletal: No swelling, No erythema Integumentary: No rashes, No erythema Neurological: Normal strength at 5/5 x4 extr - Studies Laboratory Data (last 24 hrs) 02/05/20 21:07: PT 13.1 H, INR 1.11 02/05/20 21:07: WBC 3.9 L, Hgb 12.2, Hct 36.4, Plt Count 128 L 02/05/20 21:07: Sodium 139, Potassium 3.1 L, BUN 9, Creatinine 0.68, Glucose 121 H, Magnesium 2.1, Total Bilirubin 0.1 L, AST 28, ALT 30, Alkaline Phosphatase 52 Microbiology Data (last 24 hrs): 02/05/20 21:02 Blood - Blood Anaerobic Blood Culture - Final 02/05/20 21:07 Throat Group A Streptococcus Rapid Screen - Final 02/05/20 21:07 Nasopharnyx Influenza Type A Antigen Screen - Final 02/05/20 21:07 Nasopharnyx Influenza Type B Antigen Screen - Final Assessment And Plan - Current Problems (Diagnosis) (1) Viral pneumonia Current Visit: Yes Status: Acute - Plan Continue current antibiotic. Oxygen as needed. Supportive measures with antipyretics, IV hydration. Screen for Covid 19 is pending. Follow cultures.
[2020-02-06] MEDS ORDERED: POTASSIUM CL SA 10 MEQ TAB PO ONE (15:00)
[2020-02-06] MEDS: AZITHROMYCIN IV 500 MG in NA CHLORIDE 0.9% 250 ML IVPB SCH (19:54)
[2020-02-06] MEDS: GUAIFENESIN/CODEINE 5ML UCUP PO SCH (23:23)
[2020-02-07] MEDS: ACETAMINOPHEN 500 MG TAB PO PRN ×4 (04:44→23:40)
[2020-02-07 07:39] LABS: BUN Blood Urea Nitrogen 4 mg/dL (7-18); Bicarbonate 28 mmol/L (21-32); Glucose Level 105 mg/dL (74-106); Phosphorus 2.6 mg/dL (2.5-4.9); Potassium 3.7 mmol/L (3.5-5.1); Sodium Level 142 mmol/L (136-145)
[2020-02-07] MEDS ORDERED: POTASSIUM 25 MEQ EFFERV TAB PO ONE (07:45)
[2020-02-07] MEDS: ENOXAPARIN 40 MG/0.4 ML SQ SCH (08:12)
[2020-02-07] MEDS: CEFTRIAXONE/SWI 1gm 1 GM/10 ML SYR IV SCH ×2 (08:12→19:55)
[2020-02-07] MEDS: GUAIFENESIN/CODEINE 5ML UCUP PO SCH ×2 (10:53→23:40)
[2020-02-07] MEDS: NA CHLORIDE 0.9% 1,000 ML IV SCH (10:54)
--- NOTE | 2020-02-07 14:57 | P.PN ---
Subjective Date of Service: 02/07/20 Chief Complaint: Fever, cough, congestion, and myalgia Patient has persistent fever. She has now hypoxic on room air. Oxygen saturation was down to 87% on room air. Physical Examination - Vital Signs Temperature: 99.8 F Blood Pressure: 123/62 Pulse: 86 Respirations: 18 Pulse Ox (%): 94 - Physical Exam General: Alert, In no apparent distress, Oriented x3 Respiratory: Clear to auscultation bilaterally, Normal air movement Cardiovascular: Regular rate/rhythm, Normal S1 S2 Neurological: Normal affect - Studies Microbiology Data (last 24 hrs): 02/06/20 08:40 Sputum Sputum Gram Stain - Final 02/05/20 21:02 Blood - Blood Anaerobic Blood Culture - Final Assessment And Plan - Current Problems (Diagnosis) (1) Viral pneumonia Current Visit: Yes Status: Acute - Plan Continue supportive measures. Empiric antibiotics Oxygen, antipyretics, IV hydration. Wean off oxygen as tolerated Follow cultures. On droplet isolation.
[2020-02-07] MEDS: AZITHROMYCIN IV 500 MG in NA CHLORIDE 0.9% 250 ML IVPB SCH (19:56)
[2020-02-08] MEDS: ACETAMINOPHEN 500 MG TAB PO PRN ×3 (04:42→21:02)
[2020-02-08 06:29] LABS: BUN Blood Urea Nitrogen 6 mg/dL (7-18); Bicarbonate 29 mmol/L (21-32); Glucose Level 100 mg/dL (74-106); Potassium 3.4 mmol/L (3.5-5.1); Sodium Level 140 mmol/L (136-145)
[2020-02-08] MEDS: CEFTRIAXONE/SWI 1gm 1 GM/10 ML SYR IV SCH (07:52)
[2020-02-08] MEDS: ENOXAPARIN 40 MG/0.4 ML SQ SCH (07:52)
[2020-02-08] MEDS ORDERED: POTASSIUM CL SA 10 MEQ TAB PO ONE ×2 (09:00→21:00)
--- NOTE | 2020-02-08 10:53 | P.PN ---
Subjective Date of Service: 02/08/20 Chief Complaint: Fever, cough, congestion, and myalgia Patient respiratory condition is getting worse. She is not requiring more oxygen. She has intermittent fever. Physical Examination - Vital Signs Temperature: 99.1 F Blood Pressure: 104/51 Pulse: 72 Respirations: 24 Pulse Ox (%): 90 - Physical Exam General: Mild distress Respiratory: Clear to auscultation bilaterally, Normal air movement Cardiovascular: Regular rate/rhythm, Normal S1 S2 Neurological: Other (Nonfocal) - Studies Microbiology Data (last 24 hrs): 02/06/20 08:40 Sputum Sputum Gram Stain - Final 02/06/20 08:40 Sputum Culture & Sensitivity - Final 02/05/20 21:07 Throat Culture & Sensitivity - Final NORMAL UPPER RESPIRATORY BHANU GROWN. 02/05/20 21:26 Clean Catch Urine [place] Count - Final <10,000 CFU/ML. 02/05/20 21:26 Clean Catch Urine - Final MIXED BHANU. Assessment And Plan - Current Problems (Diagnosis) (1) Viral pneumonia Current Visit: Yes Status: Acute - Plan Continue supportive measures. Continue empiric IV Rocephin. Dr. Cabello recommend starting Plaquenil and Zithromax. Case discussed with Dr. Caceres and he concurs and confirmed dosage-Plaquenil 400 mg b.i.d. x1 day, followed by 200 mg b.i.d. x5 days. Azithromycin 500 mg IV daily. Titrate Oxygen, antipyretics, IV hydration. On droplet isolation. Chest physiotherapy as tolerated.
[2020-02-08] MEDS: AZITHROMYCIN IV 500 MG in NA CHLORIDE 0.9% 250 ML IVPB SCH (11:48)
[2020-02-08] MEDS: GUAIFENESIN/CODEINE 5ML UCUP PO SCH ×2 (11:49→23:48)
[2020-02-08] MEDS: HYDROXYCHLOROQUINE 200MG TAB PO SCH ×2 (11:49→21:02)
[2020-02-08 13:12] LABS: C.diff Antigen/Toxin Ag neg : Tox neg (NEG : NEG)
[2020-02-09] MEDS: ACETAMINOPHEN 500 MG TAB PO PRN ×2 (04:15→17:05)
[2020-02-09 06:01] LABS: BUN Blood Urea Nitrogen 6 mg/dL (7-18); Bicarbonate 28 mmol/L (21-32); Glucose Level 103 mg/dL (74-106); Potassium 3.8 mmol/L (3.5-5.1); Sodium Level 140 mmol/L (136-145)
[2020-02-09] MEDS: ENOXAPARIN 40 MG/0.4 ML SQ SCH (07:44)
[2020-02-09] MEDS: CEFTRIAXONE/SWI 1gm 1 GM/10 ML SYR IV SCH (07:44)
[2020-02-09] MEDS: HYDROXYCHLOROQUINE 200MG TAB PO SCH ×2 (07:45→20:07)
[2020-02-09] MEDS: AZITHROMYCIN IV 500 MG in NA CHLORIDE 0.9% 250 ML IVPB SCH (07:45)
[2020-02-09] MEDS ORDERED: POTASSIUM CL SA 10 MEQ TAB PO ONE (09:00)
[2020-02-09] MEDS ORDERED: AZITHROMYCIN 250 MG TAB PO SCH (09:00)
[2020-02-09] MEDS ORDERED: PROMETHAZINE INJ 25 MG/ML AMP IV PRN (10:02)
[2020-02-09] MEDS ORDERED: SODIUM CHLORIDE 0.9% 10ML INJ IV PRN (10:03)
[2020-02-09] MEDS: GUAIFENESIN/CODEINE 5ML UCUP PO SCH ×2 (11:35→23:46)
[2020-02-09] MEDS: PANTOPRAZOLE 40 MG INJ IVP SCH (11:35)
[2020-02-09] MEDS: MORPHINE 2 MG/ML SYR IV PRN ×2 (11:59→20:07)
--- NOTE | 2020-02-09 12:22 | P.PN ---
Subjective Date of Service: 02/09/20 Chief Complaint: Fever, cough, congestion, and myalgia Patient is requiring more oxygen but appear clinically stable. No respiratory distress. She has intermittent fever. Physical Examination - Vital Signs Temperature: 97 F Blood Pressure: 114/56 Pulse: 81 Respirations: 26 Pulse Ox (%): 87 - Physical Exam General: Alert, In no apparent distress Respiratory: Crackles/rales (B/L lower bases) Cardiovascular: No edema - Studies Microbiology Data (last 24 hrs): 02/06/20 08:40 Sputum Sputum Gram Stain - Final 02/06/20 08:40 Sputum Culture & Sensitivity - Final 02/05/20 21:07 Throat Culture & Sensitivity - Final NORMAL UPPER RESPIRATORY BHANU GROWN. 02/05/20 21:26 Clean Catch Urine [place] Count - Final <10,000 CFU/ML. 02/05/20 21:26 Clean Catch Urine - Final MIXED BHANU. Assessment And Plan - Current Problems (Diagnosis) (1) Viral pneumonia Current Visit: Yes Status: Acute - Plan Continue supportive measures. Continue empiric IV Rocephin. Continue Plaquenil and Zithromax. Titrate Oxygen, antipyretics, IV hydration. On droplet isolation. Chest physiotherapy as tolerated.
[2020-02-09] MEDS: ALBUTEROL INHALER 60 PUFF/8 GM IH PRN (17:02)
[2020-02-10] MEDS: ACETAMINOPHEN 500 MG TAB PO PRN (04:50)
[2020-02-10 06:04] LABS: BUN Blood Urea Nitrogen 6 mg/dL (7-18); Bicarbonate 30 mmol/L (21-32); Glucose Level 116 mg/dL (74-106); Potassium 3.8 mmol/L (3.5-5.1); Sodium Level 142 mmol/L (136-145)
[2020-02-10] MEDS: AZITHROMYCIN IV 500 MG in NA CHLORIDE 0.9% 250 ML IVPB SCH (08:00)
[2020-02-10] MEDS: CEFTRIAXONE/SWI 1gm 1 GM/10 ML SYR IV SCH (08:03)
[2020-02-10] MEDS: PANTOPRAZOLE 40 MG INJ IVP SCH (08:03)
[2020-02-10] MEDS: HYDROXYCHLOROQUINE 200MG TAB PO SCH ×2 (08:03→20:38)
[2020-02-10] MEDS: ENOXAPARIN 40 MG/0.4 ML SQ SCH (08:03)
[2020-02-10] MEDS: ALBUTEROL INHALER 60 PUFF/8 GM IH PRN (08:56)
[2020-02-10] MEDS ORDERED: POTASSIUM CL SA 10 MEQ TAB PO ONE (09:00)
[2020-02-10] MEDS: GUAIFENESIN/CODEINE 5ML UCUP PO SCH ×2 (10:58→23:18)
--- NOTE | 2020-02-10 12:08 | P.PN ---
Subjective Date of Service: 02/10/20 Primary Care Provider: None Chief Complaint: Fever, cough, congestion, and myalgia Subjective: Other (Still with cough. Short of breath with exertion noted) Physical Examination - Vital Signs Temperature: 98.3 F Blood Pressure: 126/73 Pulse: 73 Respirations: 22 Pulse Ox (%): 89 - Physical Exam General: Alert, Cooperative, Other (Patient warm to touch) HEENT: Atraumatic Neck: Supple Respiratory: Diminished (To the bases bilateral) Cardiovascular: Normal pulses, Regular rate/rhythm Gastrointestinal: Normal bowel sounds, Soft and benign, Non-distended Musculoskeletal: No tenderness, No warmth Integumentary: No tenderness/swelling, No erythema, No warmth, No cyanosis Neurological: Normal speech, Normal strength at 5/5 x4 extr, Normal tone, Normal affect - Studies Medications List Reviewed: Yes Assessment & Plan Discharge Plan: Home Plan to discharge in: 72 Hours Physician Review Additional Text: Impression: Bilateral viral pneumonia positive for COVID 19 Plan: Bilateral viral pneumonia positive for COVID 19: Case discussed with pulmonology. Will continue with Zithromax/Rocephin and Plaquenil. Encourage incentive spirometer. Spoke with patient to wear mask when medical staff present in room. Encourage ambulation. Patient still requiring oxygen. Continue to wean off oxygen. Case discussed with Respiratory. Will obtain lab for tomorrow. Anticipate discharge in the next 2-3 days pending clinical improvement and once off oxygen. Time Spent Managing Pts Care (In Minutes): 55
[2020-02-10] MEDS: ENSURE HIGH PROTEIN 237 ML CAN PO SCH ×2 (14:19→20:39)
[2020-02-10] MEDS: FAMOTIDINE 20 MG TAB PO SCH (20:38)
[2020-02-11 04:36] LABS: Absolute Lymphocytes (CBC) 0.9 K/uL (0.7-4.9); Basophils % 0.1 % (0-1.3); Hematocrit 32.8 % (36.0-45.0); Lymphocytes % 16.2 % (15.3-44.8); MPV 9.3 fL (7.6-11.3); RBC Red Blood Cell Count 3.67 M/uL (3.86-4.86)
[2020-02-11 04:55] LABS: ALT/SGPT 46 U/L (12-78); AST/SGOT 35 U/L (15-37); Albumin 2.2 g/dL (3.4-5.0); Alkaline Phosphatase 57 U/L (45-117); BUN Blood Urea Nitrogen 8 mg/dL (7-18); Bicarbonate 31 mmol/L (21-32); Bilirubin Total 0.3 mg/dL (0.2-1.0); Glucose Level 107 mg/dL (74-106); Magnesium 2.4 mg/dL (1.8-2.4); Phosphorus 4.2 mg/dL (2.5-4.9); Potassium 3.9 mmol/L (3.5-5.1); Protein, Total 6.6 g/dL (6.4-8.2); Sodium Level 139 mmol/L (136-145)
[2020-02-11] MEDS: ENOXAPARIN 40 MG/0.4 ML SQ SCH (08:07)
[2020-02-11] MEDS: AZITHROMYCIN IV 500 MG in NA CHLORIDE 0.9% 250 ML IVPB SCH (08:07)
[2020-02-11] MEDS: FAMOTIDINE 20 MG TAB PO SCH ×2 (08:08→20:04)
[2020-02-11] MEDS: CEFTRIAXONE/SWI 1gm 1 GM/10 ML SYR IV SCH (08:08)
[2020-02-11] MEDS: HYDROXYCHLOROQUINE 200MG TAB PO SCH ×2 (08:08→20:04)
[2020-02-11] MEDS: ENSURE HIGH PROTEIN 237 ML CAN PO SCH ×3 (08:09→20:04)
[2020-02-11] MEDS ORDERED: POTASSIUM CL SA 10 MEQ TAB PO ONE (09:00)
[2020-02-11] MEDS ORDERED: FUROSEMIDE 20 MG/ 2ML VIAL IV ONE (09:21)
[2020-02-11] MEDS: METHYLPREDNISOLONE 40 MG INJ IV SCH ×2 (09:31→16:45)
[2020-02-11 09:35] LABS: Arterial Blood Carboxyhemoglob 0.7 % (0-1.5); Blood Gas Oxyhemoglobin 74.6 % (94-97); Blood O2 Saturation 75.7 % (92-98.5)
[2020-02-11] MEDS: GUAIFENESIN/CODEINE 5ML UCUP PO SCH (10:08)
[2020-02-11] MEDS ORDERED: WATER FOR INJ,STERILE 10 ML ONE (10:34)
--- NOTE | 2020-02-11 11:20 | P.PN ---
Subjective Date of Service: 02/11/20 Primary Care Provider: None Chief Complaint: Fever, cough, congestion, and myalgia Subjective: Other (Patient still requiring high flow oxygen. Patient appears to be more short of breath whenever sitting.) Physical Examination - Vital Signs Temperature: 98.2 F Blood Pressure: 121/68 Pulse: 79 Respirations: 26 Pulse Ox (%): 89 - Physical Exam General: Alert, Other (Patient appears labored when sitting.) HEENT: Atraumatic Neck: Supple Respiratory: Other (Decreased air sounds to the bilateral lower lung) Cardiovascular: Normal pulses, Regular rate/rhythm Gastrointestinal: Normal bowel sounds, Soft and benign, Non-distended Integumentary: No tenderness/swelling, No erythema, No warmth, No cyanosis Neurological: Normal speech, Normal strength at 5/5 x4 extr, Normal tone, Normal affect - Studies Microbiology Data (last 24 hrs): 02/05/20 21:07 Blood - Blood Aerobic Blood Culture - Final No growth in 5 days. 02/05/20 21:07 Blood - Blood Anaerobic Blood Culture - Final No growth in 5 days. 02/05/20 21:02 Blood - Blood Aerobic Blood Culture - Final No growth in 5 days. 02/05/20 21:02 Blood - Blood Anaerobic Blood Culture - Final Medications List Reviewed: Yes Assessment & Plan Discharge Plan: Home Plan to discharge in: Greater than 2 days Physician Review Additional Text: Impression: Acute respiratory failure with hypoxia secondary to Bilateral viral pneumonia positive for COVID 19 Plan: Acute respiratory failure with hypoxia secondary to Bilateral viral pneumonia positive for COVID 19: Case discussed at length with pulmonology today. Patient shows no improvement. Patient remains afebrile. CBC and BMP remained stable. ABGs showed poor oxygen on room air. Patient still requiring high- flow oxygen. Pulmonology has made changes to antibiotics. Patient will continue with Levaquin, Rocephin and Zithromax have been discontinued. Patient remains on Plaquenil. Patient is on day 3 out of plaquenil. Pulmonology also suspects early acute respiratory distress syndrome. Patient started on IV Solu- Medrol her pulmonology. Pulmonology wants to try the patient on BiPAP as well. If no significant improvement patient will require intubation. Case discussed at length with daughter and patient. Patient understands her current situation and plan of care. Case also discuss with respiratory concerning plan of care. Will continue monitor closely on BiPAP over the next several hr. If no change will transfer patient to the ICU and prepare for intubation. Case also discuss with Anesthesia in preparation for possible intubation soon. Time Spent Managing Pts Care (In Minutes): 55
--- NOTE | 2020-02-11 12:29 | P.CNS ---
Date of Consult: 02/11/20 Primary Care Provider: None Chief Complaint: COVID infection with possible ARDS History of Present Illness: Patient is 64 years of age admitted with cough congestion fever arthralgias chest x-ray shows bilateral infiltrate diagnosis of COVID 19 infection. She has remained persistently hypoxic and has developed ARDS although she patient has remained stable requiring high concentrations of oxygen/patient has not improved despite using Zithromax and Rocephin PO2 today was very low and is also zavala on Plaquenil Allergies No Known Allergies Allergy (Unverified 02/16/16 02:10) Home Medications: NK [No Home Meds] 02/06/20 - Past Medical/Surgical History Diabetic: No -: HYSTERECTOMY - Family History Father Family History: Reviewed- Non-Contributory - Social History Alcohol use: No CD- Drugs: No Caffeine use: No Place of Residence: Home Physical Examination Temp Pulse Resp BP Pulse Ox 98.6 F 72 26 H 127/78 94 02/11/20 11:28 02/11/20 11:28 02/11/20 11:28 02/11/20 11:28 02/11/20 11:28 - Problems (1) Exposure to SARS-associated coronavirus Current Visit: Yes Status: Acute Plan: Patient is starts positive (2) Viral pneumonia Current Visit: Yes Status: Acute Plan: Admitted with presumed ARDS repeat chest x-ray ordered repeat blood gases show severe hypoxemia trial of BiPAP trial of steroids for 24 hr change to p.o. levofloxacin no evidence of active ongoing sepsis vital signs stable trial of low-dose Lasix patient has had no fever may have some atelectasis
--- NOTE | 2020-02-11 14:16 | RAD REPORT ---
EXAM DESCRIPTION: RAD - Chest Single View - 02/11/2020 1:44 pm CLINICAL HISTORY: pneumonia COMPARISON: February 04 TECHNIQUE: AP portable chest image was obtained 02/11/2020 1:44 pm . FINDINGS: Lung volumes are low. Volumes are further decreased compared to February 04 imaging. Bilatera l pneumonia changes are present, progressive in the left upper lobe, left base and lateral mid right lung field. Trachea is midline. Heart and vasculature are normal. No measurable pleural effusion and no pneumothorax. No acute bony abnormality seen. No acute aortic findings suspected. IMPRESSION: Progressive bilateral pneumonia since February 04 imaging.
[2020-02-12] MEDS: METHYLPREDNISOLONE 40 MG INJ IV SCH ×3 (00:15→16:25)
[2020-02-12] MEDS: GUAIFENESIN/CODEINE 5ML UCUP PO SCH ×2 (00:15→12:30)
[2020-02-12 04:46] LABS: BUN Blood Urea Nitrogen 20 mg/dL (7-18); Bicarbonate 29 mmol/L (21-32); Glucose Level 160 mg/dL (74-106); Potassium 3.8 mmol/L (3.5-5.1); Sodium Level 141 mmol/L (136-145)
[2020-02-12] MEDS: ENOXAPARIN 40 MG/0.4 ML SQ SCH (08:07)
[2020-02-12] MEDS: levoFLOXacin 500 MG TAB PO SCH (08:07)
[2020-02-12] MEDS: HYDROXYCHLOROQUINE 200MG TAB PO SCH ×2 (08:08→21:00)
[2020-02-12] MEDS: FAMOTIDINE 20 MG TAB PO SCH ×2 (08:08→21:00)
--- NOTE | 2020-02-12 08:35 | RAD REPORT ---
EXAM DESCRIPTION: RAD - Chest Single View - 02/12/2020 6:57 am CLINICAL HISTORY: Follow up viral pneumonia/COVID Chest pain. COMPARISON: Chest Single View dated 02/11/2020; Chest Single View dated 02/05/2020; Chest Single View dated 05/31/2019 FINDINGS: Portable technique limits examination quality. Bilateral pulmonary opacities demonstrate mild improvement since comparative study. Trace pleural flu id is present bilaterally. The heart is mildly enlarged in size. No displaced fractures. IMPRESSION: Mild improvement in lung aeration since comparative study.
[2020-02-12] MEDS ORDERED: POTASSIUM CL SA 10 MEQ TAB PO ONE (09:00)
[2020-02-12] MEDS ORDERED: FUROSEMIDE 20 MG TABLET PO ONE (11:02)
--- NOTE | 2020-02-12 11:03 | P.PN ---
Subjective Date of Service: 02/12/20 Primary Care Provider: None Chief Complaint: COVID infection with possible ARDS Subjective: Improving (Patient has shown improvement with BiPAP and IV steroids. Patient patient not as labored today. Currently on 6 L per nasal cannula.) Physical Examination - Vital Signs Temperature: 98.7 F Blood Pressure: 134/72 Pulse: 74 Respirations: 20 Pulse Ox (%): 91 - Physical Exam General: Alert, In no apparent distress, Cooperative HEENT: Atraumatic Neck: Supple Respiratory: Other (Decreased breath sounds to the bases but less labored.) Cardiovascular: Normal pulses, Regular rate/rhythm Gastrointestinal: Normal bowel sounds, Soft and benign, Non-distended, No masses , No rebound, No guarding Integumentary: No tenderness/swelling, No erythema, No warmth, No cyanosis Neurological: Normal speech, Normal strength at 5/5 x4 extr, Normal tone, Normal affect - Studies Medications List Reviewed: Yes Assessment & Plan Discharge Plan: Home Plan to discharge in: 48 Hours Physician Review Additional Text: Impression: Acute respiratory failure with hypoxia secondary to Bilateral viral pneumonia positive for COVID 19 Plan: Acute respiratory failure with hypoxia secondary to Bilateral viral pneumonia positive for COVID 19: Patient has significantly improved with IV steroids and BiPAP. Repeat chest x-ray shows some improvement. Patient less labored today. Encourage incentive spirometer. Encourage ambulation. Will wean off oxygen. Patient still may require BiPAP. Case discussed with pulmonology. Will provide Lasix today. Will continue to monitor closely. Anticipate improvement over the next 48-72 hr. Patient can go home once off oxygen. Time Spent Managing Pts Care (In Minutes): 55
[2020-02-12] MEDS: ENSURE HIGH PROTEIN 237 ML CAN PO SCH ×3 (12:28→21:00)
[2020-02-13] MEDS: GUAIFENESIN/CODEINE 5ML UCUP PO SCH (00:41)
[2020-02-13] MEDS: METHYLPREDNISOLONE 40 MG INJ IV SCH ×2 (00:41→07:44)
[2020-02-13 05:48] LABS: BUN Blood Urea Nitrogen 23 mg/dL (7-18); Bicarbonate 29 mmol/L (21-32); Glucose Level 139 mg/dL (74-106); Potassium 4.4 mmol/L (3.5-5.1); Sodium Level 140 mmol/L (136-145)
[2020-02-13] MEDS ORDERED: GUAIFENESIN/CODEINE 5ML UCUP PO ONE (07:05)
[2020-02-13] MEDS: ENSURE HIGH PROTEIN 237 ML CAN PO SCH ×3 (07:44→20:15)
[2020-02-13] MEDS: FAMOTIDINE 20 MG TAB PO SCH ×2 (07:44→20:13)
[2020-02-13] MEDS: ENOXAPARIN 40 MG/0.4 ML SQ SCH (07:45)
[2020-02-13] MEDS: levoFLOXacin 500 MG TAB PO SCH (07:47)
--- NOTE | 2020-02-13 07:52 | P.PN ---
Subjective Date of Service: 02/13/20 Primary Care Provider: None Chief Complaint: COVID infection with possible ARDS Subjective: Improving, Doing well (Patient more mobile. Patient using less oxygen than yesterday. Patient feels better overall.), Other (Patient using incentive spirometer more. Patient ambulating more.) Physical Examination - Vital Signs Temperature: 98.6 F Blood Pressure: 131/84 Pulse: 82 Respirations: 14 Pulse Ox (%): 92 - Physical Exam General: Alert, In no apparent distress, Oriented x3, Cooperative HEENT: Atraumatic Neck: Supple Respiratory: Other (Clear anteriorly. Still decreased to the bases but overall improved.) Cardiovascular: Normal pulses, Regular rate/rhythm Gastrointestinal: Normal bowel sounds, Soft and benign, Non-distended Neurological: Normal speech, Normal strength at 5/5 x4 extr, Normal tone, Normal affect - Studies Medications List Reviewed: Yes Assessment & Plan Discharge Plan: Home Plan to discharge in: 24 Hours Physician Review Additional Text: Impression: Acute respiratory failure with hypoxia secondary to Bilateral viral pneumonia positive for COVID 19 Plan: Acute respiratory failure with hypoxia secondary to Bilateral viral pneumonia positive for COVID 19: Patient continues to improve. Will transition IV steroids to oral. Patient currently being weaned off oxygen. Patient is using incentive spirometer more. Continue to encourage incentive spirometer. Continue ambulation. Will continue with low-dose Lasix. Anticipate improvement over the next 24-48 hr. Will discharge once she is off oxygen. Time Spent Managing Pts Care (In Minutes): 55
[2020-02-13] MEDS ORDERED: BENZONATATE 100 MG CAP PO PRN (07:53)
[2020-02-13] MEDS: GUAIFENESIN 600 MG SA TAB PO SCH ×2 (08:10→20:13)
[2020-02-13] MEDS: predniSONE 20 MG TAB PO SCH ×2 (08:10→20:13)
[2020-02-13] MEDS ORDERED: FUROSEMIDE 20 MG TABLET PO SCH (09:00)
[2020-02-14 05:01] VITALS: O2SAT 90
[2020-02-14] MEDS: levoFLOXacin 500 MG TAB PO SCH (07:56)
[2020-02-14] MEDS: FAMOTIDINE 20 MG TAB PO SCH (07:56)
[2020-02-14] MEDS: ENSURE HIGH PROTEIN 237 ML CAN PO SCH (07:56)
[2020-02-14] MEDS: ENOXAPARIN 40 MG/0.4 ML SQ SCH (07:57)
[2020-02-14] MEDS: GUAIFENESIN 600 MG SA TAB PO SCH (07:57)
[2020-02-14] MEDS: predniSONE 20 MG TAB PO SCH (07:57)
[2020-02-14 08:22] VITALS: BP 118/56
--- NOTE | 2020-02-14 08:59 | P.DS ---
Admission Date: 02/06/20 Discharge Date: 02/14/20 Primary Care Provider: None Disposition: ROUTINE DISCHARGE Discharge Condition: GOOD Reason for Admission: COVID infection Consultations: Pulmonary-Dr. Starr Procedures: Follow up CXR: FINDINGS: Portable technique limits examination quality. Bilateral pulmonary opacities demonstrate mild improvement since comparative study. Trace pleural fluid is present bilaterally. The heart is mildly enlarged in size. No displaced fractures. IMPRESSION: Mild improvement in lung aeration since comparative study. Medical Problem List: Acute respiratory failure with hypoxia secondary to Bilateral viral pneumonia positive for COVID 19 Brief History of Present Illness: 64-year-old female without medical problems presented with cough, congestion and body aches. Patient reported no recent travel. Apparently a family member-grandchild had been positive for COVID-19. The patient was evaluated the emergency room. Bilateral pneumonia was identified. This was suspicious for COVID-19, patient admitted for further evaluation and treat. Hospital Course: Patient initially presented with cough, congestion and body aches. Significant history was exposure to grandchild that had been positive for COVID-19. No recent travel was identified. Patient had no no prior medical problems. Initial chest x-ray showed bilateral interstitial opacities. This was highly suspicious for COVID-19. Patient was admitted for treatment. Pulmonology was consulted. During her initial stage of treatment patient was given Zithromax, Plaquenil and Rocephin as she test positive for COVID-19. Patient continued with oxygen. For several days patient required high-flow oxygen and her condition continued to decline. Acute respiratory failure with hypoxia was identified. There was some concern that the patient would require intubation. A further discussion on whether to adjust medication and provide BiPAP including the addition of IV steroids was addressed with pulmonology in detail. Several COVID-19 protocols were reviewed in her management. It was determined that the adjustment in medication including the addition of BiPAP, diuretic therapy, and steroids was required at that time. Fortunately this improved her condition dramatically. After receiving BiPAP/IV steroid/IV diuretic therapy after 1 day the patient significantly improved. The patient continued to improve. At discharge she is not requiring any supplemental oxygen. Her condition has significantly improved to where she has had less shortness of breath with exertion. At discharge patient will not require any antibiotic therapy. Patient has finish course of Plaquenil. Pulmonology recommends to continue prednisone 10 mg daily for 2 weeks. Patient will also continue with Aldactone 12.5 mg daily. She is to monitor her blood pressure closely. If blood pressure is less than 110/80 then the recommendation is to hold Aldactone. She is to monitor her input and output closely. It will be important for her to monitor her weight daily. Patient will be provided Tessalon 100 mg 3 times a day as needed for cough and Mucinex 600 mg twice daily for congestion. Patient will need to quarantine at home for at least 14 days. Instructions on hand washing and use of mask was addressed in detail. CDC guidelines will be provided. Patient will be followed by and the health department closely. Patient will require repeat viral testing to make sure this has resolved. This can be further addressed by pulmonology. Patient will follow up with pulmonology in 1-2 weeks to follow her care. Patient will be given information on PCPs in the area to establish care. Vital Signs/Physical Exam: Temp Pulse Resp BP Pulse Ox 97.9 F 76 18 118/56 L 90 L 02/14/20 04:00 02/14/20 07:58 02/14/20 00:00 02/14/20 07:58 02/14/20 04:00 General: Alert, In no apparent distress, Oriented x3 HEENT: Atraumatic Neck: Supple Respiratory: Other (Clear anteriorly. Still decreased to the bases posteriorly) Cardiovascular: Normal pulses, Regular rate/rhythm Gastrointestinal: Normal bowel sounds, No tenderness, No masses, No rebound, No guarding Musculoskeletal: No erythema, No tenderness, No warmth Integumentary: No tenderness/swelling, No erythema, No warmth, No cyanosis Neurological: Normal speech, Normal strength at 5/5 x4 extr, Normal tone, Normal affect Laboratory Data at Discharge: WBC 5.5 K/uL (4.3-10.9) D 02/11/20 04:00 Hgb 10.9 g/dL (12.0-15.0) L 02/11/20 04:00 Hct 32.8 % (36.0-45.0) L 02/11/20 04:00 Plt Count 276 K/uL (152-406) D 02/11/20 04:00 PT 12.8 SECONDS (9.5-12.5) H 02/06/20 04:35 INR 1.09 02/06/20 04:35 APTT 34.9 SECONDS (24.3-36.9) 02/06/20 04:35 Sodium 140 mmol/L (136-145) 02/13/20 05:20 Potassium 4.4 mmol/L (3.5-5.1) 02/13/20 05:20 BUN 23 mg/dL (7-18) H 02/13/20 05:20 Creatinine 0.58 mg/dL (0.55-1.3) 02/13/20 05:20 Glucose 139 mg/dL (74-106) H 02/13/20 05:20 Phosphorus 4.2 mg/dL (2.5-4.9) 02/11/20 04:00 Magnesium 2.4 mg/dL (1.8-2.4) 02/11/20 04:00 Total Bilirubin 0.3 mg/dL (0.2-1.0) 02/11/20 04:00 AST 35 U/L (15-37) 02/11/20 04:00 ALT 46 U/L (12-78) 02/11/20 04:00 Alkaline Phosphatase 57 U/L (45-117) 02/11/20 04:00 Triglycerides 77 mg/dL (<150) 02/06/20 04:35 Cholesterol 108 mg/dL (<200) 02/06/20 04:35 HDL Cholesterol 57 mg/dL (40-60) 02/06/20 04:35 Cholesterol/HDL Ratio 1.89 02/06/20 04:35 Home Medications: Benzonatate [Tessalon Perle*] 100 mg PO TID PRN #20 cap 02/14/20 Famotidine [Pepcid*] 20 mg PO BID #60 tab 02/14/20 Guaifenesin [Mucinex] 600 mg PO BID PRN #20 tab.er.12h 02/14/20 Spironolactone [Aldactone] 12.5 mg PO SEECOM #3 tablet 02/14/20 predniSONE [Deltasone*] 10 mg PO DAILY #14 tab 02/14/20 New Medications: Benzonatate [Tessalon Perle*] 100 mg PO TID PRN #20 cap PRN Reason: Cough Famotidine [Pepcid*] 20 mg PO BID #60 tab Guaifenesin [Mucinex] 600 mg PO BID PRN #20 tab.er.12h PRN Reason: Cough predniSONE [Deltasone*] 10 mg PO DAILY #14 tab Spironolactone [Aldactone] 12.5 mg PO SEECOM #3 tablet Patient Discharge Instructions: 1. Recommend follow up with a PCP in the area. A list of providers will be provided. 2. Patient initially presented with cough, congestion and body aches. Significant history was exposure to grandchild that had been positive for COVID-19. No recent travel was identified. Patient had no no prior medical problems. Initial chest x-ray showed bilateral interstitial opacities. This was highly suspicious for COVID- 19. Patient was admitted for treatment. Pulmonology was consulted. During her initial stage of treatment patient was given Zithromax, Plaquenil and Rocephin as she test positive for COVID-19. Patient continued with oxygen. For several days patient required high-flow oxygen and her condition continued to decline. Acute respiratory failure with hypoxia was identified. There was some concern that the patient would require intubation. A further discussion on whether to adjust medication and provide BiPAP including the addition of IV steroids was addressed with pulmonology in detail. Several COVID-19 protocols were reviewed in her management. It was determined that the adjustment in medication including the addition of BiPAP, diuretic therapy, and steroids was required at that time. Fortunately this improved her condition dramatically. After receiving BiPAP/IV steroid/IV diuretic therapy after 1 day the patient significantly improved. The patient continued to improve. At discharge she is not requiring any supplemental oxygen. Her condition has significantly improved to where she has had less shortness of breath with exertion. At discharge patient will not require any antibiotic therapy. Patient has finish course of Plaquenil. Pulmonology recommends to continue prednisone 10 mg daily for 2 weeks. Patient will also continue with Aldactone 12.5 mg daily for 5 days. She is to monitor her blood pressure closely. If blood pressure is less than 110/80 then the recommendation is to hold Aldactone. She is to monitor her input and output closely. It will be important for her to monitor her weight daily. Patient will be provided Tessalon 100 mg 3 times a day as needed for cough and Mucinex 600 mg twice daily for congestion. Patient will need to quarantine at home for at least 14 days. Instructions on hand washing and use of mask was addressed in detail. CDC guidelines will be provided. Patient will be followed by and the health department closely. Patient will require repeat viral testing to make sure this has resolved. This can be further addressed by pulmonology. Patient will follow up with pulmonology in 1-2 weeks to follow her care. Patient will be given information on PCPs in the area to establish care. Diet: Regular Activity: Ad cal Time spent managing pt's care (in minutes): 55
[2020-02-14] MEDS ORDERED: SPIRONOLACTONE 25 MG TABLET PO SCH (09:00)
[2020-02-14 09:11] VITALS: TEMP 97.7
== END 2020-02-14 12:02 | disposition home or self-care (01) | DRG 177 ==
LOC: ER 19:50 → ERHOLD 23:19 → INTOOBSV 23:19 → 4TH 02-06 14:10 → OBSVTOIN 02-06 17:07 → 4TH 02-06 20:20
PROVIDERS: ADMIT Hospitalist; ATTEND Family Medicine
DX: U07.1 COVID-19 (principal); J12.89 Other viral pneumonia; J96.01 Acute respiratory failure with hypoxia; Z90.710 Acquired absence of both cervix and uterus; Z79.52 Long term (current) use of systemic steroids; Z79.899 Other long term (current) drug therapy
CPT/HCPCS: 36415; 71045; 80048; 80053; 80061; 80076; 81003; 82805; 83605; 83735; 83880; 84100; 84132; 84484; 85025; 85610; 85730; 87040; 87070; 87081; 87086; 87088; 87205; 87324; 87449; 87804; 93005; 94660; 94760; 96374; 96375; 99285; C9113; G0378; J0456; J0696; J1650; J1940; J2270; J2550; J2920; J7030; J7512; U0001

== ENCOUNTER 2022-03-30 16:21 | Inpatient (IN) | payer OTHER ==
--- OUTSIDE RECORDS SUMMARY | 2022-03-30 16:23 | XMS REPORT | Continuity of Care Document ---
:[address] [facility] t Address [address] [place] [address] Care Team Providers Name Role Phone Lesley Martinez Attending Clinician Unavailable Marie ORDONEZ Attending Clinician Unavailable Marie ORDONEZ Admitting Clinician Unavailable Problems This patient has no known problems. Allergies, Adverse Reactions, Alerts Allergy Allergy Status Severity Reaction(s) Onset Inactive Treating Comm ents Source Name Type Date Date Clinician NO KNOWN Drug Active [facility] ALLERGIE Class [facility] Medications Ordered Filled Start Stop Current Ordering Indication Dosage Frequency Signature Comments Components Source Medication Medication Date Date Medication? Clinician (SIG) Name Name Levothyroxi Levothyroxi Yes Nicholas 1 tablet Common ne Sodium ne Sodium 8-11 Martinez in the Sp [facility] 00:00: morning on - [facility] [address] stomach [facility] Citalopram Citalopram Yes Nicholas TAKE 1 Common Hydrobromid Hydrobromid Martinez TABLET BY Spirit e e MOUTH ONCE - [facility] DAILY FOR [facility] 30 DAYS [facility] Donepezil Donepezil Yes Nicholas 2 tablet Common HCl HCl Martinez at bedtime Spirit - [facility] Propranolol Propranolol Yes Nicholas 1 tablet Common HCl HCl Martinez on an Spirit empty - [facility] stomach [facility] Memantine Memantine Yes Nicholas 1 tablet Common HCl HCl Martinez [facility] Methocarbam Methocarbam Yes Nicholas 1 tablet Common ol ol Martinez [facility] Atorvastati Atorvastati Yes Nicholas 1 tablet Common n Calcium n Calcium Martinez [facility] - [facility] Immunizations Ordered Immunization Filled Immunization Date Status Commen ts Source Name Name TDAP > 7 TDAP > 7 2019-02-12 Completed Common Spirit [facility]-Adacel Years-Adacel 00:00:00 - [facility] Procedures This patient has no known procedures. Encounters Start End Encounter Admission Attending Care Care Encounter Source Date/Time Date/Time Type Type Clinicians Facility Department ID 2021-12-08 Outpatient Martinez, [place] [id number] Common 14:31:06 Nicholas [facility] 2021-12-08 Outpatient Martinez, [place] [id number] Common 14:28:49 Nicholas [id number] [facility] 2021-12-08 Outpatient Martinez, [place] [id number] Common 14:26:44 Nicholas [id number] [facility] 2021-12-08 Outpatient Martinez, [place] [id number] Common 13:53:49 Nicholas [id number] [facility] 2021-12-08 Outpatient Martinez, [place] [id number] Common 13:19:27 Nicholas [id number] [facility] 2021-12-08 Outpatient Martinez, [place] [id number] Common 13:16:47 Nicholas [id number] [facility] 2021-12-08 Outpatient Martinez, [place] [id number] Common 12:44:00 Nicholas [id number] [facility] 2021-12-08 Outpatient Martinez, [place] [id number] Common 12:43:17 Nicholas [id number] [facility] 2021-12-08 Outpatient Martinez, [place] [id number] Common 12:42:26 Nicholas [id number] [facility] 2021-12-08 Outpatient Martinez, STLMLC STLMLC [id number] Common 12:42:19 Nicholas [id number] [facility] 2021-12-08 Outpatient Martinez, STLMLC STLMLC [id number] Common 12:39:53 Nicholas [id number] [facility] 2021-12-08 Outpatient Martinez, STLMLC STLMLC [id number] Common 11:54:03 Nicholas [id number] [facility] 2021-12-08 Outpatient Martinez, STLMLC STLMLC [id number] Common 11:53:49 Nicholas [id number] [facility] 2021-12-08 Outpatient Martinez, STLMLC STLMLC [id number] Common 11:21:10 Nicholas [id number] [facility] 2021-12-08 Outpatient Martinez, STLMLC STLMLC [id number] Common 11:02:57 Nicholas [id number] [facility] 2021-11-17 2021-11-17 ambulatory STLMLC STLMLC [id number] Common 00:00:00 00:00:00 [facility] 2021-11-02 2021-11-02 ambulatory STLMLC STLMLC [id number] Common 00:00:00 00:00:00 [facility] 2021-09-08 2021-09-08 Outpatient STLMLC STLMLC [id number] Common 00:00:00 00:00:00 [facility] 2021-08-10 2021-08-10 Outpatient STLMLC STLMLC [id number] Common 00:00:00 00:00:00 [facility] 2021-07-22 2021-07-22 Outpatient STLMLC STL[facility]C [id number] Common 00:00:00 00:00:00 [facility] 2021-05-25 2021-05-25 Outpatient STLMLC STLMLC [id number] Common 00:00:00 00:00:00 [facility] 2021-05-12 2021-05-12 Outpatient STLMLC STLMLC [id number] Common 00:00:00 00:00:00 [facility] 2021-05-10 2021-05-10 Outpatient STLMLC STLMLC [id number] Common 00:00:00 00:00:00 [facility] 2021-02-01 2021-02-01 Outpatient STLMLC ST[facility]C [id number] Common 00:00:00 00:00:00 [facility] 2021-02-01 2021-02-01 Outpatient STLMLC STLMLC [id number] Common 00:00:00 00:00:00 [facility] 2020-11-02 2020-11-02 Outpatient STLMLC STLMLC [id number] Common 00:00:00 00:00:00 [facility] 2020-08-24 2020-08-24 Outpatient STLMLC STLMLC [id number] Common 00:00:00 00:00:00 [facility] 2020-06-23 2020-06-23 [facility] [id number] Common 09:00:00 09:00:[address] [facility] [address] [facility] 2020-04-21 2020-04-21 [facility] [id number] Common 14:00:00 14:00:[address] [facility] [address] [facility] 2020-03-26 2020-03-26 [facility] [id number] Common 16:25:00 16:25:00 [address] [facility] [address] [facility] 2020-03-24 2020-03-24 [facility] [id number] Common 13:20:00 13:20:00 [address] [facility] [address] [facility] 2020-03-23 2020-03-23 [facility] [id number] Common 14:37:00 14:37:00 [address] [facility] [address] [facility] 2020-03-23 2020-03-23 [facility] [id number] Common 14:14:00 14:14:[address] [facility] 2020-03-23 2020-03-23 [facility] [id number] Common 14:06:00 14:06:[address] [facility] 2020-03-18 2020-03-18 [facility] [id number] Common 09:19:00 09:19:[address] [facility] 2019-06-03 2019-06-03 [facility] [id number] Common 14:15:00 14:15:[address] [facility] 2019-05-27 2019-05-27 [facility] [id number] Common 11:56:00 11:56:[address] [facility] 2019-05-08 2019-05-08 [facility] [id number] Common 13:30:00 13:30:00 t Specialty/U [facility] Specialty rology - [facility] 2019-03-19 2019-03-19 [facility] [id number] Common 11:24:00 11:24:[address] [facility] 2019-03-06 2019-03-06 [facility] [id number] Common 16:15:00 16:15:00 t Specialty/U Sp [facility] Specialty rology - [facility] 2019-03-06 2019-03-06 [facility] [id number] Common 14:45:00 14:45:[address] [facility] 2019-02-22 2019-02-22 [facility] [id number] Common 09:13:00 09:13:00 t Specialty/U Sp [facility] Specialty rology - [facility] 2019-02-12 2019-02-12 [facility] [id number] Common 14:45:00 14:45:[address] [facility] 2019-02-12 2019-02-12 Outpatient Alexia Tay [id number] Common 11:00:00 11:00:[address] [facility] 2019-01-29 2019-01-29 Emergency X [facility]ERY [facility] ERT [id number] Univers 17:52:19 21:05:00 DAVE barksdale [facility] Results Test Description Test Time Test Comments Results Result Sourc e Comments RAD, SPINE, 2019-01-21 Reason for FINAL REPORT PATIENT LUMBAR, COMPLETE, 13:16:00 Exam:->chronic ID: [id number] WITH FLEX midline low LUMBAR SPINE X-RAY - back pain with SEVEN VIEWS left sided HISTORY: sciatica chronic midline low back pain with left [...]
[2022-03-30] MEDS ORDERED: FAMOTIDINE 20 MG/2 ML VIAL IV ONE (17:44)
[2022-03-30] MEDS ORDERED: ONDANSETRON 4 MG/2 ML VIAL ONE (17:44)
[2022-03-30] MEDS ORDERED: MORPHINE 4 MG/ML SYR ONE (17:44)
[2022-03-30 18:12] LABS: Urine Blood Negative (Negative); Urine Glucose Negative (Negative); Urine Protein 1+ (Negative); Urine pH 8.5 (5.0-7.0)
[2022-03-30 18:19] LABS: Absolute Lymphocytes (CBC) 0.9 K/uL (0.7-4.9); Lymphocytes % 8.8 % (15.3-44.8); MPV 9.2 fL (7.6-11.3); RBC Red Blood Cell Count 4.39 M/uL (3.86-4.86)
[2022-03-30 18:31] LABS: Urine Amorphous Sediment 3+ /HPF (NONE SEEN); Urine Bacteria 20-50 /HPF (<20); Urine RBC <5 /HPF (NONE SEEN)
[2022-03-30 18:38] LABS: Albumin 3.8 g/dL (3.4-5.0); Bilirubin Total 0.3 mg/dL (0.2-1.0); Potassium 3.4 mmol/L (3.5-5.1); Protein, Total 7.4 g/dL (6.4-8.2)
--- NOTE | 2022-03-30 20:06 | RAD REPORT ---
EXAM DESCRIPTION: CTAbdomen Pelvis W Contrast - 03/30/2022 7:40 pm CLINICAL HISTORY: Abdominal pain, acute, nonlocalized COMPARISON: No comparisons TECHNIQUE: CT of the abdomen and pelvis was performed with contrast. All CT scans are performed using dose optimization technique as appropriate and may include automated exposure control or mA/KV adjustment according to patient size. FINDINGS: Lower chest: Tiny bilateral pulmonary nodules which are most certainly benign. None measur e over 3 millimeters. Mild circumferential thickened distal esophagus . Liver: No acute abnormality or suspicious lesions. Biliary: Cholelithiasis. Mild pericholecystic edema. Stomach: No significant focal abnormality. Duodenum: No significant focal abnormality. Pancreas: No significant abnormality. Spleen: No significant abnormality. Adrenal: Indeterminate 18 mm left adrenal nodule. Kidney/ureter: No hydronephrosis. No renal calculi. Retroperitoneum: No retroperitoneal adenopathy. Vascular: No aneurysm. Bowel: No significant focal abnormality. Peritoneum: No ascites or free air. Bladder: Grossly unremarkable. Reproductive: No adnexal masses. History Bones: No acute fracture. Other: n/a IMPRESSION: 1. Cholelithiasis with mild pericholecystic stranding concerning for acute cholecystitis . Correlate with LFTs. 2. Indeterminate left adrenal nodule. Nonemergent adrenal protocol MRI should be considered. In the a bsence of known malignancy, incidentally discovered adrenal nodules are extremely likely be benign.
--- NOTE | 2022-03-30 20:24 | ER ---
Nurse's Notes [facility] Name: Halima Rao Age: 67 yrs Sex: Female : 1955 Arrival Date: 03/30/2022 Time: 16:21 Bed 25 Private MD: Diagnosis: Acute cholecystitis Presentation: 03/30 16:41 Chief complaint: Patient states: she started having abdominal pain with nausea and ap3 vomiting this morning. patient reports the pain of being 9/10 on a scale of 0-10. Coronavirus screen: At this time, the client does not indicate any symptoms associated with coronavirus-19. Ebola Screen: No symptoms or risks identified at this time. Initial Sepsis Screen: Does the patient meet any 2 criteria?. Risk Assessment: Do you want to hurt yourself or someone else? Patient reports no desire to harm self or others. Onset of symptoms was March 30, 2022. 16:41 Method Of Arrival: Wheelchair ap3 16:44 Initial Sepsis Screen: Does the patient have a suspected source of infection? No. ap3 Patient's initial sepsis screen is negative. 16:44 Acuity: RAZIA 3 ap3 Triage Assessment: 16:46 General: Appears uncomfortable, Behavior is cooperative. Pain: Complains of pain in ap3 abdomen and epigastric area Pain began suddenly, this morning. Neuro: Level of Consciousness is awake, alert, obeys commands, Oriented to person, place, time, situation, Appropriate for age Speech is normal. Cardiovascular: Patient's skin is warm and dry. Respiratory: Airway is patent Respiratory effort is even, unlabored. GI: Reports constipation, nausea, vomiting. Historical: - Allergies: 16:43 No Known Allergies; ap3 - Home Meds: 16:43 thyroid medication-unknown [Active]; blood pressure med-unknown [Active]; ap3 - PMHx: 16:43 Hypertensive disorder; ap3 - Immunization history:: Client reports receiving the 2nd dose of the Covid vaccine. - Social history:: Smoking status: Patient denies any tobacco usage or history of. Screenin:46 Abuse screen: Denies threats or abuse. Nutritional screening: No deficits noted. ap3 Tuberculosis screening: No symptoms or risk factors identified. 03/31 00:00 Fall Risk None identified. vc1 Assessment: 03/30 16:47 GI: Bowel sounds present X 4 quads. Abd is soft X 4 quads Abdomen is tender to ap3 palpation in epigastric area, right upper quadrant and left upper quadrant. Vital Signs: 16:44 BP 151 / 84; Pulse 74; Resp 19; Temp 98.7; Pulse Ox 100% ; Weight 74.84 kg; Height 5 ap3 ft. 2 in. (157.48 cm); Pain 8/10; 18:19 BP 134 / 71; Pulse 62; Resp 18; Pulse Ox 95% on R/A; ld1 19:23 BP 141 / 73; Pulse 71; Resp 18; Pulse Ox 100% on R/A; ld1 16:44 Body Mass Index 30.18 (74.84 kg, 157.48 cm) ap3 ED Course: 16:21 Patient arrived in ED. as 16:22 Chad Navarrete DO is Attending Physician. ms3 16:46 Triage completed. ap3 16:46 Arm band placed on right wrist. ap3 18:06 Rose Mitchell, JUNE is Primary Nurse. ld1 18:15 Urine Microscopic Only Sent. ld1 18:58 Attending Physician role handed off by Chad Navarrete DO rn 18:58 Geovanny Cisneros MD is Attending Physician. rn 19:00 Patient has correct armband on for positive identification. Bed in low position. Call vc1 light in reach. 19:42 CT Abd/Pelvis - IV Contrast Only In Process Unspecified. EDMS 20:23 Prosper Jefferson MD is Hospitalizing Provider. rn 20:23 Masha Pillai MD is Hospitalizing Provider. rn 20:26 Alexis Bran is Hospitalizing Provider. rn 21:01 US Abdomen Limited In Process Unspecified. EDMS 22:29 Inserted saline lock: 20 gauge in right antecubital area, using aseptic technique. ld1 03/31 00:00 No provider procedures requiring assistance completed. Patient admitted, IV remains in vc1 place. Administered Medications: 03/30 18:07 Drug: Pepcid (famotidine) 20 mg Route: IVP; Site: right antecubital; ld1 18:07 Drug: Zofran (Ondansetron) 4 mg Route: IVP; Site: right antecubital; ld1 18:07 Drug: morphine 4 mg Route: IVP; Site: right antecubital; ld1 20:20 Drug: Zosyn (piperacillin-tazobactam) 3.375 grams Route: IVPB; Infused Over: 60 mins; ld1 Site: right antecubital; 20:40 Drug: morphine 2 mg Route: IVP; Site: right antecubital; ld1 20:40 Drug: Zofran (Ondansetron) 4 mg Route: IVP; Site: right antecubital; ld1 Medication: 16:46 VIS not applicable for this client. ap3 Outcome: 20:23 Decision to Hospitalize by Provider. rn 03/31 00:00 Admitted to ER Hold. Please see [facility] for further documentation. vc1 Condition: good Instructed on the need for admit. 15:38 Transferred by ground EMS to [facility], Note: [facility] rm 510 15:39 Patient left the ED. corbett Signatures: Dispatcher [employer] EDMS Vera Lopez Roman, MD MD rn Prokisch, Amanda, RN RN ap3 Chad Navarrete DO DO ms3 Rose Mitchell RN RN ld1 Au-StagerTiffanie RN RN Misty Fernandez RN RN vc1 Corrections: (The following items were deleted from the chart) 03/30 20:43 20:35 COVID 19 CPL+ drawn and sent. ld1 EDMS
--- NOTE | 2022-03-30 20:24 | EDPHYS ---
Physician Documentation [facility] Name: Halima Rao Age: 67 yrs Sex: Female : 1955 Arrival Date: 03/30/2022 Time: 16:21 Bed 25 Private MD: ED Physician Geovanny Cisneros HPI: 03/30 16:30 This 67 yrs old Female presents to ER via Unassigned with complaints of ms3 Abdominal Pain. 16:30 The patient presents with abdominal pain in the epigastric area. Onset: The ms3 symptoms/episode began/occurred acutely, 7 hour(s) ago. The symptoms do not radiate. Associated signs and symptoms: Pertinent positives: nausea and vomiting, Pertinent negatives: fever. The symptoms are described as sharp. Modifying factors: The symptoms are alleviated by nothing, the symptoms are aggravated by nothing. Severity of pain: At its worst the pain was severe in the emergency department the pain is unchanged is a 10 / 10. Historical: - Allergies: 16:43 No Known Allergies; ap3 - Home Meds: 16:43 thyroid medication-unknown [Active]; blood pressure med-unknown [Active]; ap3 - PMHx: 16:43 Hypertensive disorder; ap3 - Immunization history:: Client reports receiving the 2nd dose of the Covid vaccine. - Social history:: Smoking status: Patient denies any tobacco usage or history of. ROS: 16:30 Constitutional: Negative for fever, and chills. Eyes: Negative for injury, pain, ms3 redness, and discharge, Neck: Negative for injury, pain, and swelling, Cardiovascular: Negative for chest pain, and palpitations. Respiratory: Negative for shortness of breath, cough, wheezing, and pleuritic chest pain, MS/Extremity: Negative for injury and deformity, Skin: Negative for injury, rash, and discoloration, Psych: Negative for depression, anxiety, suicide ideation, homicidal ideation, and hallucinations. 16:30 Abdomen/GI: Positive for abdominal pain, nausea and vomiting. 16:30 All other systems are negative. Exam: 16:30 Constitutional: This is a well developed, well nourished patient who is awake, alert, ms3 and in no acute distress. Head/Face: Normocephalic, atraumatic. ENT: Nares patent. No nasal discharge, no septal abnormalities noted. Tympanic membranes are normal and external auditory canals are clear. Oropharynx with no redness, swelling, or masses, exudates, or evidence of obstruction, uvula midline. Mucous membranes moist. Neck: Trachea midline, no cervical lymphadenopathy. Supple, full range of motion without nuchal rigidity, or vertebral point tenderness. No Meningismus. Chest/axilla: Normal chest wall appearance and motion. Nontender with no deformity. Cardiovascular: Regular rate and rhythm with a normal S1 and S2. No gallops, murmurs, or rubs. Normal PMI, no JVD. No pulse deficits. Respiratory: Lungs have equal breath sounds bilaterally, clear to auscultation and percussion. No rales, rhonchi or wheezes noted. No increased work of breathing, no retractions or nasal flaring. Skin: Warm, dry with normal turgor. Normal color with no rashes, no lesions, and no evidence of cellulitis. Psych: Awake, alert, with orientation to person, place and time. Behavior, mood, and affect are within normal limits. 16:30 Abdomen/GI: Inspection: abdomen appears normal, Bowel sounds: normal, Palpation: severe abdominal tenderness, in the epigastric area. Vital Signs: 16:44 BP 151 / 84; Pulse 74; Resp 19; Temp 98.7; Pulse Ox 100% ; Weight 74.84 kg; Height 5 ap3 ft. 2 in. (157.48 cm); Pain 8/10; 18:19 BP 134 / 71; Pulse 62; Resp 18; Pulse Ox 95% on R/A; ld1 19:23 BP 141 / 73; Pulse 71; Resp 18; Pulse Ox 100% on R/A; ld1 16:44 Body Mass Index 30.18 (74.84 kg, 157.48 cm) ap3 MDM: 16:30 Differential diagnosis: bowel obstruction, non-specific abd pain, pancreatitis, Peptic ms3 Ulcer Disease. 17:43 Patient medically screened. ms3 19:17 Transition of care: After a detail discussion of the patient's case, care is ms3 transferred to Geovanny Cisneros MD. 20:18 Data reviewed: vital signs, nurses notes, lab test result(s), radiologic studies, CT rn scan, and as a result, I will admit patient. Counseling: I had a detailed discussion with the patient and/or guardian regarding: the historical points, exam findings, and any diagnostic results supporting the discharge/admit diagnosis, lab results, radiology results, the need for further work-up and treatment in the hospital. 20:19 Response to treatment: the patient's symptoms have markedly improved after treatment, rn and as a result, I will discharge patient. Admission orders: after a detailed discussion of the patient's condition and case, the admit orders are written by me. ED course: Pt with early acute cholecystitis. 20:20 ED course: Pt improved but cell tender on reeval, consulting with Dr. Jefferson, will rn see in AM, requests admission to hospitalist service. . 03/30 16:30 Order name: CBC with Diff; Complete Time: 18:57 ms3 03/30 16:30 Order name: CMP; Complete Time: 18:57 ms3 03/30 16:30 Order name: Lipase; Complete Time: 18:57 ms3 03/30 16:30 Order name: Urine Microscopic Only; Complete Time: 18:57 ms3 03/30 16:34 Order name: Troponin High Sensitivity; Complete Time: 18:57 ms3 03/30 18:13 Order name: Urine Dipstick-Ancillary; Complete Time: 18:14 EDMS 03/30 18:35 Order name: Urine Culture EDMS 03/30 20:38 Order name: CBC with Automated Diff EDMS 03/30 20:38 Order name: CBC with Automated Diff EDMS 03/30 20:38 Order name: Comprehensive Metabolic Panel EDMS 03/30 20:38 Order name: Comprehensive Metabolic Panel EDMS 03/30 20:45 Order name: SARS-COV-2 RT PCR EDMS 03/30 21:21 Order name: Thyroid Stimulating Hormone EDMS 03/30 16:30 Order name: CT Abd/Pelvis - IV Contrast Only; Complete Time: 20:13 ms3 03/30 16:30 Order name: IV Saline Lock; Complete Time: 18:07 ms3 03/30 16:34 Order name: EKG; Complete Time: 16:35 ms3 03/30 20:19 Order name: US Abdomen Limited; Complete Time: 21:18 rn 03/30 21:21 Order name: Thyroid Stimulating Hormone EDMS 03/30 21:24 Order name: CONS Physician Consult EDMS 03/30 21:24 Order name: NPO EDMS 03/30 21:24 Order name: Urinalysis EDUT 03/30 21:24 Order name: Lipid Profile EDUT 03/30 21:24 Order name: Lipid Profile [facility] 03/30 16:30 Order name: Labs collected and sent; Complete Time: 18:07 ms3 03/30 16:30 Order name: Urine Dipstick-Ancillary (obtain specimen); Complete Time: 18:15 ms3 Administered Medications: 18:07 Drug: Pepcid (famotidine) 20 mg Route: IVP; Site: right antecubital; ld1 18:07 Drug: Zofran (Ondansetron) 4 mg Route: IVP; Site: right antecubital; ld1 18:07 Drug: morphine 4 mg Route: IVP; Site: right antecubital; ld1 20:20 Drug: Zosyn (piperacillin-tazobactam) 3.375 grams Route: IVPB; Infused Over: 60 mins; ld1 Site: right antecubital; 20:40 Drug: morphine 2 mg Route: IVP; Site: right antecubital; ld1 20:40 Drug: Zofran (Ondansetron) 4 mg Route: IVP; Site: right antecubital; ld1 Disposition Summary: 03/30/22 20:23 Hospitalization Ordered Hospitalization Status: Inpatient Admission rn Condition: Stable rn Problem: new rn Symptoms: have improved rn Bed/Room Type: Standard rn Location: [facility] ER HOLD(03/30/22 20:24) oe Room Assignment: ERHOLD-(03/30/22 20:24) oe Provider: Alexis Bran(03/30/22 20:26) rn Diagnosis - Acute cholecystitis rn Forms: - Medication Reconciliation Form rn - SBAR form rn Signatures: Dispatcher [employer] EDMS Geovanny Cisneros MD MD rn [place]spinosa, [place] oe Zoe Romero RN RN ap3 Chad Navarrete DO DO ms3 Rose Mitchell RN RN ld1 Mague Nino PA PA sb3 Corrections: (The following items were deleted from the chart) 20:24 20:23 Telemetry/MedSurg (Inpatient) rn oe 20:24 20:23 rn oe 20:26 20:23 Masha Pillai rn rn 20:43 20:33 COVID 19 CPL+MR.LAB.BRZ ordered. EDMS EDMS
[2022-03-30] MEDS ORDERED: MORPHINE 2 MG/ML SYR ONE (20:53)
[2022-03-30] MEDS ORDERED: PIPERACIL/TAZO 3.375 GM VIAL IV ONE (20:53)
[2022-03-30] MEDS ORDERED: NA CHLORIDE 0.9% 100 ML IV ONE (20:53)
--- NOTE | 2022-03-30 21:14 | RAD REPORT ---
EXAM DESCRIPTION: US - Abdomen Exam Limited - 03/30/2022 8:59 pm CLINICAL HISTORY: possible cholecystitis COMPARISON: Abdomen Pelvis W Contrast dated 03/30/2022 FINDINGS: Cholelithiasis with gallbladder wall thickening. Trace pericholecystic fluid. A stone is i mpacted at the gallbladder neck. Mild biliary ductal dilatation measuring 8 mm. IMPRESSION: Cholelithiasis with sonographic findings suspicious for cholecystitis. Mild common bile duct dilatation.
[2022-03-30] MEDS ORDERED: ACETAMINOPHEN 500 MG TAB PO PRN (21:22)
[2022-03-30] MEDS ORDERED: MORPHINE 2 MG/ML SYR IV PRN (21:22)
[2022-03-30] MEDS ORDERED: ONDANSETRON 4 MG/2 ML VIAL IV PRN (21:22)
[2022-03-30] MEDS ORDERED: HYDRALAZINE HCL 20 MG/ML VIAL IV PRN (21:22)
[2022-03-30 21:54] VITALS: BMI 29.2
[2022-03-30] MEDS: NA CHLORIDE 0.9% 1,000 ML IV SCH (22:00)
[2022-03-30] MEDS ORDERED: NA CHLORIDE 0.9% 1,000 ML ONE (22:02)
--- NOTE | 2022-03-31 00:30 | P.HP ---
Certification for Inpatient Patient admitted to: Inpatient With expected LOS: <2 Midnights Patient will require the following post-hospital care: None Practitioner: I am a practitioner with admitting privileges, knowledge of patient current condition, hospital course, and medical plan of care. Services: Services provided to patient in accordance with Admission requirements found in Title 42 Section 412.3 of the Code of Federal Regulations Patient History Date of Service: 03/31/22 Reason for admission: Cholecystitis History of Present Illness: Patient is a 67-year-old female, Iranian-speaking, with hypothyroidism and hypertension who presented to the ED with complaints of abdominal pain, nausea, and vomiting that began this morning. She denies any previous episodes of these symptoms or prior history of gallbladder issues. CT showed Cholelithiasis with mild pericholecystic stranding concerning for acute cholecystitis. Ultrasound had similar findings and showed mild common bile duct dilation. Labs significant for potassium 3.4, UTI, AST 46. general surgery was notified and wishes for patient to be admitted to hospitalist with him consulting. Allergies No Known Allergies Allergy (Unverified 02/16/16 02:10) Home medications list reviewed: Yes Home Medications: Benzonatate [Tessalon Perle*] 100 mg PO TID PRN #20 cap 02/14/20 Famotidine [Pepcid*] 20 mg PO BID #60 tab 02/14/20 Guaifenesin [Mucinex] 600 mg PO BID PRN #20 tab.er.12h 02/14/20 Spironolactone [Aldactone] 12.5 mg PO SEECOM #3 tablet 02/14/20 predniSONE [Deltasone*] 10 mg PO DAILY #14 tab 02/14/20 - Past Medical/Surgical History Has patient received pneumonia vaccine in the past: No Diabetic: No -: Hypothyroidism -: Hypertension -: Depression -: HYSTERECTOMY Psychosocial/ Personal History: Patient lives at home with her - Family History Mother -: Cancer (colon) - Social History Smoking Status: Never smoker Alcohol use: No CD- Drugs: No Caffeine use: No Place of Residence: Home Review of Systems Gastrointestinal: Nausea, Vomiting, Abdominal Pain Physical Examination - Vital Signs Temperature: 98.7 F Blood Pressure: 108/67 Pulse: 66 Respirations: 13 Pulse Ox (%): 96 - Physical Exam General: Alert, In no apparent distress HEENT: Atraumatic, PERRLA, EOMI, Sclerae nonicteric Neck: Supple, 2+ carotid pulse no bruit, No LAD, Without JVD or thyroid abnormality Respiratory: Clear to auscultation bilaterally, Normal air movement Cardiovascular: Regular rate/rhythm, Normal S1 S2 Gastrointestinal: Normal bowel sounds, Soft and benign, Non-distended, No rebound, No guarding, Tenderness Musculoskeletal: No tenderness Integumentary: No rashes Neurological: Normal speech, Normal strength at 5/5 x4 extr, Normal tone, Normal affect - Studies Laboratory Data (last 24 hrs) 03/30/22 18:06: Sodium 139, Potassium 3.4 L, BUN 14, Creatinine 0.78, Glucose 131 H, Total Bilirubin 0.3, AST 46 H, ALT 36, Alkaline Phosphatase 77, Lipase 188 03/30/22 18:06: WBC 10.3, Hgb 13.0, Hct 40.0, Plt Count 188 Assessment and Plan - Problems (Diagnosis) (1) Acute cholecystitis Current Visit: Yes Status: Acute (2) UTI (urinary tract infection) Current Visit: Yes Status: Acute Qualifiers: Urinary tract infection type: acute cystitis Hematuria presence: without hematuria Qualified Code(s): N30.00 - Acute cystitis without hematuria (3) Hypokalemia Current Visit: Yes Status: Acute (4) Hypertension Current Visit: Yes Status: Chronic Qualifiers: Hypertension type: primary hypertension Qualified Code(s): I10 - Essential (primary) hypertension (5) Hypothyroidism Current Visit: No Status: Chronic Qualifiers: Hypothyroidism type: acquired Qualified Code(s): E03.9 - Hypothyroidism, unspecified - Plan -Admit patient to medical floor for acute cholecystitis with General surgery consulting -N.p.o. at midnight. Maintenance IV fluids -Zosyn started in ED. Continue -morphine and Zofran PRN -Hydralazine as needed BP spikes -Reconcile and continue home medications -Monitor and replete electrolytes per protocol -SCDs for DVT prophylaxis Discharge Plan: Home Plan to discharge in: 48 Hours - Advance Directives Does patient have a Living Will: No Does patient have a Durable POA for Healthcare: No - Code Status/Comfort Care Code Status Assessed: Yes (Full) Critical Care: No Time Spent Managing Pts Care (In Minutes): 70
[2022-03-31] MEDS: PIPER TAZO 3.375 GM in NA CHLORIDE 0.9% 100 ML IV SCH ×2 (01:00→09:00)
[2022-03-31] MEDS ORDERED: MORPHINE 2 MG/ML SYR ONE ×2 (02:53→15:38)
[2022-03-31 03:47] LABS: Hematocrit 38.5 % (36.0-45.0); Lymphocytes % 13.7 % (15.3-44.8); MPV 9.4 fL (7.6-11.3); RBC Red Blood Cell Count 4.21 M/uL (3.86-4.86)
[2022-03-31 04:32] LABS: Albumin 3.1 g/dL (3.4-5.0); Bilirubin Total 0.4 mg/dL (0.2-1.0); Potassium 3.9 mmol/L (3.5-5.1); Protein, Total 6.4 g/dL (6.4-8.2); Thyroid Stimulating Hormone 2.93 uIU/mL (0.360-3.740)
[2022-03-31] MEDS ORDERED: NA CHLORIDE 0.9% 1,000 ML ONE ×2 (06:13→07:57)
[2022-03-31 07:36] VITALS: BP 112/70; TEMP 98.3
[2022-03-31] MEDS: NA CHLORIDE 0.9% 1,000 ML IV SCH (08:00)
[2022-03-31] MEDS ORDERED: PIPERACIL/TAZO 3.375 GM VIAL IV ONE (09:30)
[2022-03-31] MEDS ORDERED: NA CHLORIDE 0.9% 100 ML IV ONE (09:30)
[2022-03-31] MEDS ORDERED: ONDANSETRON 4 MG/2 ML VIAL ONE (15:38)
[2022-03-31 16:42] VITALS: O2SAT 100
--- NOTE | 2022-03-31 19:08 | P.DS ---
Admission Date: 03/30/22 Discharge Date: 03/31/22 Disposition: TRANSFER TO [facility] Discharge Condition: FAIR Reason for Admission: Cholecystitis - Problems (1) Acute cholecystitis Current Visit: Yes Status: Acute (2) Hypothyroidism Current Visit: No Status: Chronic Qualifiers: Hypothyroidism type: acquired Qualified Code(s): E03.9 - Hypothyroidism, unspecified (3) UTI (urinary tract infection) Current Visit: Yes Status: Acute Qualifiers: Urinary tract infection type: acute cystitis Hematuria presence: without hematuria Qualified Code(s): N30.00 - Acute cystitis without hematuria Brief History of Present Illness: Patient is a 67-year-old female, [place]-speaking, with hypothyroidism and hypertension who presented to the ED with complaints of abdominal pain, nausea, and vomiting. She denied any previous episodes of these symptoms or prior history of gallbladder issues. CT showed Cholelithiasis with mild pericholecystic stranding concerning for acute cholecystitis. Ultrasound had similar findings and showed mild common bile duct dilation. Labs significant for potassium 3.4, UTI, AST 46. general surgery and patient admitted for further management. Hospital Course: Patient admitted to the medical floor, started on IV Zosyn. LFT monitored and there was acute rising AST and ALT. Liver ultrasound reported CBD dilatation. There was concern for choledocholithiasis. General surgery-Dr. Jefferson recommended transfer to a tertiary center as patient may need ERCP. [facility]'s contacted, patient has been accepted for transfer. She is clinically stable with stable vitals. Vital Signs/Physical Exam: Temp Pulse Resp BP Pulse Ox 98.3 F 62 17 112/70 95 03/31/22 07:35 03/31/22 07:35 03/31/22 07:35 03/31/22 07:35 03/31/22 07:35 General: Alert, In no apparent distress, Oriented x3 HEENT: Atraumatic, Mucous membr. moist/pink, Sclerae nonicteric Neck: Supple, JVD not distended Respiratory: Clear to auscultation bilaterally, Normal air movement Cardiovascular: No edema, Regular rate/rhythm, Normal S1 S2 Gastrointestinal: Normal bowel sounds, Non-distended, Tenderness (Right upper quadrant.) Musculoskeletal: No swelling Integumentary: No rashes, No erythema, No cyanosis Neurological: Normal strength at 5/5 x4 extr Laboratory Data at Discharge: WBC 7.2 K/uL (4.3-10.9) D 03/31/22 03:25 Hgb 12.5 g/dL (12.0-15.0) 03/31/22 03:25 Hct 38.5 % (36.0-45.0) 03/31/22 03:25 Plt Count 163 K/uL (152-406) 03/31/22 03:25 Sodium 140 mmol/L (136-145) 03/31/22 03:25 Potassium 3.9 mmol/L (3.5-5.1) 03/31/22 03:25 BUN 11 mg/dL (7-18) 03/31/22 03:25 Creatinine 0.67 mg/dL (0.55-1.3) 03/31/22 03:25 Glucose 109 mg/dL (74-106) H 03/31/22 03:25 Total Bilirubin 0.4 mg/dL (0.2-1.0) 03/31/22 03:25 AST 255 U/L (15-37) H D 03/31/22 03:25 ALT 241 U/L (12-78) H D 03/31/22 03:25 Alkaline Phosphatase 80 U/L (45-117) 03/31/22 03:25 Triglycerides 123 mg/dL (<150) 03/31/22 03:25 Cholesterol 142 mg/dL (<200) 03/31/22 03:25 HDL Cholesterol 68 mg/dL (40-60) H 03/31/22 03:25 Cholesterol/HDL Ratio 2.09 03/31/22 03:25 Lipase 188 U/L (73-393) 03/30/22 18:06 Home Medications: Famotidine [Pepcid*] 20 mg PO BID #60 tab 02/14/20 Guaifenesin [Mucinex] 600 mg PO BID PRN #20 tab.er.12h 02/14/20 Spironolactone [Aldactone] 12.5 mg PO SEECOM #3 tablet 02/14/20 Hydralazine [Apresoline*] 10 mg IV Q6HP PRN vial 03/31/22 Ondansetron [Zofran*] 4 mg IV Q6HP PRN vial 03/31/22 Followup: Nicholas Martinez, [Primary Care Provider] - Time spent managing pt's care (in minutes): 36
--- NOTE | 2022-04-01 02:42 | CON ---
Date of Consultation: 03/31/2022 Brief History Of Present Illness: The patient is a 67-year-old female, Mac[place] speaking wit h hyperthyroidism and hypertension, who presented to the ER with complaints of abdominal pain, nausea , and vomiting, beginning earlier in the morning. She denied any previous similar episodes of gallbl adder issues. She had pain in the right upper quadrant and epigastric region during the examination and associated nausea, but it was significantly better with medication. No sick contacts. No recent travel. No new food exposures. Past Medical History: Significant for hypothyroidism, hypertension, depression. Past Surgical History: Includes hysterectomy. She has had colonoscopies in the past. Allergies: NO KNOWN DRUG ALLERGIES. Home Medications: Include Tessalon Perles, Pepcid, Mucinex, Aldactone, and prednisone. Social History: She lives at home with her . She denies smoking, alcohol, or recreational dr ug use. Physical Examination: Vital Signs: At the time of my examination, temperature 98.7, blood pressure 108/67, pulse 66, respi ratory rate 13, pulse ox 98% on room air. General: She is awake, alert, and oriented. Psychiatric: She is appropriate, conversive. HEENT: She is normocephalic. Sclerae anicteric. Mucous membranes are moist. Oropharynx is clear. Neck: Supple. No JVD. Chest: Normal expansion and excursion. Cardiovascular: Regular rate and rhythm. Pulmonary: Clear to auscultation bilaterally. Abdomen: Soft with positive right upper quadrant and epigastric mild tenderness to palpation. Negat thanh Alexander's at the time of examination. The patient received pain medication, however. Extremities: No clubbing, cyanosis, or edema. Skin: Warm and dry. Laboratory Data: Laboratory examination revealed a white blood cell count of 7.2, hemoglobin 12.2, h ematocrit 38.5, platelet count was 163, neutrophils are 78%. Her sodium is 140, potassium 3.9, chlor yefri 108, carbon dioxide is 29, BUN 11, creatinine 0.6, glucose is 109. Total bilirubin 0.4; AST is 2 55, up from 46 on admission; ALT is 241, up from 36 just previously; alk phos is 80 from 77. Her tro ponin was 5.4 in the normal range. Her lipase is 188. She had 20-50 bacteria in her urine, 3+ amorp hous sediment as well, 1+ ketones. She had imaging performed, which included a CT of the abdomen and pelvis as well as an abdominal ultrasound. The CT abdomen and pelvis was officially read as choleli thiasis with mild pericholecystic stranding concerning for acute cholecystitis of indeterminate, left adrenal nodule. Recommend nonemergent MRI in the future. Abdominal ultrasound was officially read as cholelithiasis with sonographic findings suspicious for cholecystitis, mild common bile duct dilat ation, stone is impacted in the gallbladder neck, cholelithiasis with gallbladder wall thickening, tr tonya pericholecystic fluid present. Assessment And Plan: This is a 67-year-old female who comes in with evidence of cholecystitis, possi ble choledocholithiasis with elevation of LFTs and biliary ductal dilatation. 1.IV fluid hydration. 2.Antibiotic coverage with Zosyn 3.375 IV q.6 h. 3.Serial abdominal exams. 4.I have recommended the patient receive ERCP as she has elevation of LFTs as well as biliary ductal dilatation concerning for possible choledocholithiasis as such I recommend GI consultation; however, no gastroenterologists is available at this point, and as such I recommend transfer to a [facility] where she can have this her biliary tract interrogated to ensure no choledocholithiasis exi sts prior to any surgical intervention. I have explained the risks, its alternatives, and the above stated plan. The patient agrees to proceed as indicated. Thank you for this interesting consult. TIERNEY/MIC Voice ID: [id number] Report ID: [id number]
== END 2022-03-31 15:40 | disposition short-term general hospital (02) | DRG 445 ==
LOC: ER 16:21 → ERHOLD 21:15
PROVIDERS: ADMIT Internal Medicine; ATTEND Internal Medicine
DX: K80.42 Calculus of bile duct with acute cholecystitis without obstruction (principal); N30.00 Acute cystitis without hematuria; E03.9 Hypothyroidism, unspecified; I10 Essential (primary) hypertension; E87.6 Hypokalemia; Z80.0 Family history of malignant neoplasm of digestive organs; Z20.822 Contact with and (suspected) exposure to COVID-19
CPT/HCPCS: 36415; 74177; 76705; 80053; 80061; 81003; 81015; 83690; 84443; 84484; 85025; 87086; 87088; 96374; 96375; 99285; J2270; J2405; J2543; J3490; J7030; Q9967; U0003

== ENCOUNTER 2022-07-27 09:48 | Emergency (ER) | payer OTHER ==
--- OUTSIDE RECORDS SUMMARY | 2022-07-27 09:54 | XMS REPORT | Continuity of Care Document ---
:1955 Author Organization [facility] t Address [address] [place] [address] Care Team Providers Name Role Phone Mihcael Martinezh Lesley Attending Clinician Unavailable Anthony Nowak MD Attending Clinician ANTHONY NOAWK Attending Clinician Unavailable Get Armstrong MD Attending Clinician Andrei Cronin MD Attending Clinician DAVE ORDONEZ Attending Clinician Unavailable ANTHONY NOWAK Admitting Clinician Unavailable DAVE ORDONEZ Admitting Clinician Unavailable Payers Payer Name Policy Type Policy Number Effective Date Expiration Date S ource Problems Condition Condition Condition Status Onset Resolution Last Treating Co mments Source Name Details Category Date Date Treatment Clinician Date Acute Acute Disease Active [facility] - Merlene kes tis tis 00:00: [place] [address] Center Allergies, Adverse Reactions, Alerts Allergy Allergy Status Severity Reaction(s) Onset Inactive Treating Comm ents Source Name Type Date Date Clinician NO KNOWN Drug Active Noemí Rocha ity of [facility] NO KNOWN Allergy Active [facility] Social History Social Habit Start Date Stop Date Quantity Comments Source History SDOH [facility] Alcohol Std Drinks Medica l Center History SDOH [facility] Alcohol Binge Medical [facility] History SDWV [facility] Alcohol Comment Medical C enter History SDOH [facility] Transport [facility]-Med Medical [facility] Alcohol intake 2022-04-04 2022-04-[address] [facility] 00:00:00 00:00:00 non-drinker Medical Cente r (finding) Tobacco use and 2022-04-01 2022-04-[address] Merlene kes exposure 00:00:00 00:00:[address] [facility] 2022-03-31 2022-03-[address] [facility] Transport Med 00:00:00 00:00:[address] [facility] 2022-03-31 2022-03-[address] [facility] Housing Unable to 00:00:00 00:00:[address] Pay History [facility] 2022-03-31 2022-03-[address] [facility] Housing Places 00:00:00 00:00:00 Medical Ce nter Lived History [facility] 2022-03-31 2022-03-[address] [facility] Housing Homeless 00:00:00 00:00:00 Medical Center Last Year History [facility] 2022-03-31 2022-03-[address] [facility] Alcohol Frequency 00:00:00 00:00:00 [facility] Center Sex Assigned At [address] [facility] kes 00:00:00 00:00:00 Medical Center Smoking Status Start Date Stop Date Source Never smoker [facility] Medications Ordered Filled Start Stop Current Ordering Indication Dosage Frequency Signature Comments Components Source Medication Medication Date Date Medication? Clinician (SIG) Name Name donepeziL Yes 10mg QD Take [address] (ARICEPT) 5-22 by mouth Lukes 10 MG 16:30: nightly. Medical tablet [address] [place] [address] memantine Yes 10mg Q.5D Take [address] (NAMENDA) 5-22 by mouth 2 Luke s 10 MG 16:30: (two) Medical tablet 50 times Center daily. citalopram Yes 10mg QD Take [address] (CeleXA) 10 5-22 by mouth Luke s MG tablet 16:30: daily. Medica l 50 Center propranoloL Yes 10mg Take [address] (INDERAL) 5-22 by mouth 3 Luke s 10 MG 16:30: (three) Medical tablet 50 times Center daily as needed. atorvastati Yes 10mg QD Take [address] n (LIPITOR) 5-22 by mouth Luke s 10 MG 16:30: nightly. Medical tablet 50 Center levothyroxi Yes 50ug Take [address] ne 5-22 mcg by Khanh (SYNTHROID, 16:30: mouth Medic al LEVOTHROID) 50 Every Center 50 MCG morning on tablet an empty stomach. aspirin 81 Yes 81mg QD Take [address] MG chewable 5-22 by mouth Luke s tablet 16:30: daily. Medical 50 Center traMADoL 2021- No 50mg Take [address] (ULTRAM) 50 5-22 06-01 tablet (50 L ukes mg tablet 00:00: 23:59 mg total) Me dical 00 :00 by mouth Center every 6 (six) hours as needed for Pain for up to 10 days. Max Daily Amount: 200 mg amoxicillin 2021- No 1{tbl} Q.5D Take [address] -clavulanat 5-22 05-29 tablet by Merlene amezquita e 00:00: 23:59 mouth 2 Medical (AUGMENTIN) 00 :00 (two) Center 875-125 mg times per tablet daily for 7 days. Levothyroxi Levothyroxi Yes Nicholas 1 tablet Common ne Sodium ne Sodium 8-11 Martinez in the Sp nohemi 00:00: morning on - [facility] [address] stomach [facility] Donepezil Donepezil Yes Nicholas 2 tablet Common HCl HCl Martinez at bedtime Spirit [facility] Propranolol Propranolol Yes Nicholas 1 tablet Common HCl HCl Martinez on an Spirit empty - CHI stomach [facility] Memantine Memantine Yes Nicholas 1 tablet Common HCl HCl Martinez [facility] Methocarbam Methocarbam Yes Nicholas 1 tablet Common ol ol Martinez [facility] Atorvastati Atorvastati Yes Nicholas 1 tablet Common n Calcium n Calcium Martinez Spir it - [facility] Citalopram Citalopram Yes Nicholas TAKE 1 Common Hydrobromid Hydrobromid Martinez TABLET BY Spirit e e MOUTH ONCE - CHI DAILY FOR St 30 [facility] Immunizations Ordered Immunization Filled Immunization Date Status Commen ts Source Name Name TDAP > 7 TDAP > 7 2019-02-12 Completed Common Spirit Years-Adacel Years-Adacel 00:00:00 - [facility] Vital Signs Vital Name Observation Time Observation Value Comments Source WEIGHT 2022-03-31 18:27:00 77.111 kg HEIGHT 2022-03-31 18:27:00 160 cm WEIGHT 2022-03-31 18:27:00 77.111 kg HEIGHT 2022-03-31 18:27:00 160 cm WEIGHT 2022-03-31 18:27:00 77.111 kg HEIGHT 2022-03-31 18:27:00 160 cm Systolic blood 2022-04-03 13:00:00 148 mm[Hg] [facility] Diastolic blood 2022-04-03 13:00:00 75 mm[Hg] [facility] Heart rate 2022-04-03 13:00:00 64 /min [facility] Body temperature 2022-04-03 13:00:00 36.17 [facility] Respiratory rate 2022-04-03 13:00:00 18 /min [facility] Oxygen saturation in 2022-04-03 13:00:00 98 /min [facility] Arterial blood by Medical Ce nter Pulse oximetry Body height 2022-03-31 18:27:00 160 cm [facility] Body weight 2022-03-31 18:27:00 77.111 kg [facility] BMI 2022-03-31 18:27:00 30.11 kg/m2 [facility] Procedures Procedure Date / Time Performed Performing Clinician Sourc e POCT-GLUCOSE METER 2022-04-03 12:55:00 Eliu [facility] BASIC METABOLIC PANEL (7) 2022-04-03 05:12:00 Eliu [facility] MAGNESIUM 2022-04-03 05:12:00 [facility] COMPREHENSIVE METABOLIC 2022-04-02 04:56:00 Andrei Cronin [facility] CBC (HEMOGRAM ONLY) 2022-04-02 04:56:[address] [facility] TISSUE EXAM 2022-04-01 13:42:00 Andrei Cronin [facility] CHOLECYSTECTOMY, 2022-04-01 12:53:00 Andrei Cronin [facility] COMPREHENSIVE METABOLIC 2022-04-01 05:46:00 Andrei Cronin [facility] CBC (HEMOGRAM ONLY) 2022-04-01 05:46:[address] [facility] TROPONIN I 2022-04-01 05:46:00 Eliu [facility] PROTHROMBIN TIME/INR 2022-04-01 00:07:00 [facility] TROP[facility] 2022-04-01 00:07:00 [facility] COMPREHENSIVE METABOLIC 2022-03-31 18:55:00 Andrei Cronin [facility] CBC (HEMOGRAM ONLY) 2022-03-31 18:55:[address] [facility] POCT-GLUCOSE METER 2022-03-31 18:00:[facility] 2022-03-31 00:00:00 Provider, [facility] Plan of Care Planned Activity Planned Date Details Comments Source Future Scheduled 2029-02-12 DTAP/TDAP/TD VACCINES [facility] Test 00:00:00 (2 - Td or Tdap) [code Medic al Center = DTAP/TDAP/TD VACCINES (2 - Td or Tdap)] Future Scheduled 2022-07-14 INFLUENZA VACCINE (#1) [facility] Test 00:00:00 [code = INFLUENZA Medical Ce nter VACCINE (#1)] Future Scheduled 2022-03-17 COVID-19 VACCINE (3 - [facility] Test 00:00:00 Booster for [facility] series) [code = COVID-19 VACCINE (3 - Booster for Laura series)] Future Scheduled 2021-11-[address] [facility] Test 00:00:00 (12+) [code = Medical Center DEPRESSION SCREENING (12+)] Future Scheduled 2021-11-13 FALLS RISK SCREENING [facility] Test 00:00:00 [code = FALLS RISK Medical C enter SCREENING] Future Scheduled 2020 PNEUMOCOCCAL 65+ YRS ([address] [facility] Test 00:00:00 - PCV) [code = Medical Cente r PNEUMOCOCCAL 65+ YRS (1 - PCV)] Future Scheduled 2005 SHINGLES VACCINES ([address] [facility] Test 00:00:00 2) [code = SHINGLES [facility] Center VACCINES (1 of 2)] Future Scheduled 1973 HEPATITIS C SCRE[facility]ING [facility] Test 00:00:00 [code = HEPATITIS C [facility] Center SCREENING] Future Scheduled 1955 Screening for malignant [facility] Test 00:00:00 neoplasm of breast Medical C enter (procedure) [code = 385694793] Future Scheduled 1955 CT Colonography (combo) [facility] Test 00:00:00 [code = CT Colonography [facility] Center (combo)] Future Scheduled 1955 Screening for malignant [facility] Test 00:00:00 neoplasm of colon Medical Ce nter (procedure) [code = 239644119] Future Scheduled 1955 Screening for malignant [facility] Test 00:00:00 neoplasm of colon Medical Ce nter (procedure) [code = 770457171] Future Scheduled 1955 DXA SCAN [code = DXA [facility] Test 00:00:00 SCAN] [facility] Center Future Scheduled 1955 Screening for malignant [facility] Test 00:00:00 neoplasm of colon Medical Ce nter (procedure) [code = 171436896] Future Scheduled 1955 Screening for malignant [facility] Test 00:00:00 neoplasm of colon Medical Ce nter (procedure) [code = 475831259] Future Scheduled 1955 Sigmoidoscopy [code = CH I [facility] Test 00:00:00 Sigmoidoscopy] Medical Cente r Encounters Start End Encounter Admission Attending Care Care Encounter Source Date/Time Date/Time Type Type Clinicians Facility Department ID 2022-07-20 [facility] [id number] Common 11:04:00 Nicholas [facility] 2022-04-08 Outpatient Martinez[facility] [id number] Common 07:10:00 Nicholas [facility] 2022-04-07 Outpatient Martinez[facility] [id number] Common 12:25:00 Nicholas [facility] 2022-04-01 Outpatient Martinez[facility] [id number] Common 16:03:00 Nicholas [facility] 2021-12-08 Outpatient Martinez[facility] [id number] Common 14:31:06 Nicholas [facility] 2021-12-08 Outpatient Martinez, STLMLC STLC [id number] Common 14:28:49 Nicholas [facility] 2021-12-08 Outpatient [facility] [id number] Common 14:26:44 Nicholas 13234 [facility] 2021-12-08 Outpatient Martinez, [facility] [id number] Common 13:53:49 Nicholas [id number] [facility] 2021-12-08 Outpatient Martinez, [facility] [id number] Common 13:19:27 Nicholas 68432 [facility] 2021-12-08 Outpatient Martinez, [facility] [id number] Common 13:16:47 Nicholas 24614 [facility] 2021-12-08 [facility] [id number] Common 12:44:00 Nicholas 72194 [facility] 2021-12-08 Outpatient Martinez, STLMLC STLMLC [id number] Common 12:43:17 Nicholas 00426 [facility] 2021-12-08 Outpatient Martinez, STLMLC STLMLC [id number] Common 12:42:26 Nicholas 38783 [facility] 2021-12-08 Outpatient Martinez, STLMLC STLMLC [id number] Common 12:42:19 Nicholas 58884 [facility] 2021-12-08 Outpatient Martinez, STLMLC STLMLC [id number] Common 12:39:53 Nicholas 77743 [facility] 2021-12-08 Outpatient Martinez, STLMLC STLMLC [id number] Common 11:54:03 Nicholas 09731 [facility] 2021-12-08 Outpatient Martinez, STLMLC STLMLC [id number] Common 11:53:49 Nicholas 26041 [facility] 2021-12-08 Outpatient Martinez, STLMLC STLMLC [id number] Common 11:21:10 Nicholas 30219 [facility] 2021-12-08 Outpatient Martinez, STLMLC STLMLC [id number] Common 11:02:57 Nicholas 09531 [facility] 2022-07-20 2022-07-20 ambulatory STLMLC STLMLC [id number] Common 00:00:00 00:00:00 [facility] 2022-06-07 2022-06-07 ambulatory STLMLC STLMLC [id number] Common 00:00:00 00:00:00 [facility] 2022-06-07 2022-06-07 ambulatory STLMLC STLMLC [id number] Common 00:00:00 00:00:00 [facility] 2022-04-08 2022-04-08 ambulatory STLMLC STLMLC [id number] Common 00:00:00 00:00:00 [facility] 2022-03-31 2022-04-03 [facility] [id number] 17:02:00 14:00:00 Encounter [facility] 2022-03-31 2022-04-03 [facility]patient [facility] [id number] [facility] 17:02:00 14:00:00 [facility] 2022-04-01 2022-04-01 Anesthesia Get Armstrong [facility] [id number] [facility] 12:53:00 14:03:00 Event [facility] 2022-04-01 2022-04-01 Surgery Mehrdad [facility] [id number] 12:15:00 13:30:00 [facility] 2022-04-01 2022-04-01 ambulatory STLMLC STLMLC [id number] Common 00:00:00 00:00:00 [facility] 2022-03-31 2022-03-31 Travel STC STC [id number] [facility] 00[facility]:00 00:00:00 [facility] 2021-11-17 2021-11-17 ambulatory STLMLC STLMLC [id number] Common 00:00:00 00:00:00 [facility] 2021-11-02 2021-11-02 ambulatory STLMLC STLMLC [id number] Common 00:00:00 00:00:00 [facility] 2021-09-08 2021-09-08 Outpatient STLMLC STLMLC [id number] Common 00:00:00 00:00:00 [facility] 2021-08-10 2021-08-10 Outpatient STLMLC STLMLC [id number] Common 00:00:00 00:00:00 [facility] 2021-07-22 2021-07-22 Outpatient STLMLC STLMLC [id number] Common 00:00:00 00:00:00 [facility] 2021-05-25 2021-05-25 Outpatient STLMLC STLMLC [id number] Common 00:00:00 00:00:00 [facility] 2021-05-12 2021-05-12 Outpatient STLMLC STLMLC [id number] Common 00:00:00 00:00:00 [facility] 2021-05-10 2021-05-10 Outpatient STLMLC STLMLC [id number] Common 00:00:00 00:00:00 [facility] 2021-02-01 2021-02-01 Outpatient STLMLC STLMLC [id number] Common 00:00:00 00:00:00 [facility] 2021-02-01 2021-02-01 Outpatient STLMLC STLMLC [id number] Common 00:00:00 00:00:00 [facility] 2020-11-02 2020-11-02 Outpatient STLMLC STLMLC [id number] Common 00:00:00 00:00:00 [facility] 2020-08-24 2020-08-24 Outpatient STLMLC STLMLC [id number] Common 00:00:00 00:00:00 [facility] 2020-06-23 2020-06-23 [facility] [id number] Common 09:00:00 09:00:[address] [facility] 2020-04-21 2020-04-21 [facility] [id number] Common 14:00:00 14:00:[address] [facility] 2020-03-26 2020-03-26 [facility] [id number] Common 16:25:00 16:25:[address] [facility] [address] [facility] 2020-03-24 2020-03-24 [facility] [id number] Common 13:20:00 13:20:[address] [facility] [address] [facility] 2020-03-23 2020-03-23 [facility] [id number] Common 14:37:00 14:37:[address] [facility] [address] [facility] 2020-03-23 2020-03-23 [facility] [id number] Common 14:14:00 14:14:[address] [facility] 2020-03-23 2020-03-23 [facility] [id number] Common 14:06:00 14:06:[address] [facility] 2020-03-18 2020-03-18 [facility] [id number] Common 09:19:00 09:19:[address] [facility] 2019-06-03 2019-06-03 [facility] [id number] Common 14:15:00 14:15:[address] [facility] 2019-05-27 2019-05-27 [facility] [id number] Common 11:56:00 11:56:[address] [facility] 2019-05-08 2019-05-08 [facility] [id number] Common 13:30:00 13:30:00 t Specialty/U Sp nohemi Specialty rology - [facility]I [facility] 2019-03-19 2019-03-19 [facility] [id number] Common 11:24:00 11:24:[address] [facility] 2019-03-06 2019-03-06 [facility] [id number] Common 16:15:00 16:15:00 t Specialty/U Sp nohemi Specialty rology - [facility] 2019-03-06 2019-03-06 [facility] [id number] Common 14:45:00 14:45:[address] [facility] 2019-02-22 2019-02-22 [facility] [id number] Common 09:13:00 09:13:00 t Specialty/U Sp nohemi Specialty rology - [facility] 2019-02-12 2019-02-12 [facility] [id number] Common 14:45:00 14:45:[address] [facility] 2019-02-12 2019-02-12 [facility] [id number] Common 11:00:00 11:00:[address] [facility] Em[employer] [facility] 2019-01-29 2019-01-29 Emergency X MERY NCSMILEY ERT [id number] [employer] 17:52:19 21:05:00 DAVE barksdale [facility] Results Test Description Test Time Test Comments Results Result Comments Source Tissue Exam 2022-04-05 18:17:34 Test Item Value Reference Range Interpretation Comme nts Case Report (test code = 104) Surgical Pathology Report Case: [id number] Authorizing Provider: Andrei Cronin MD Collected: 04/01/2022 01:42 PM Ordering Location: [facility] Med Surg 5th Floor Received: 04/04/2022 08:26 AM Pathologist: Cata Quiñones MD Specimen: Gallbladder DIAGNOSIS (test code = 3220) [id number]TaEnGeTf p cdWMxIHtccnRmMVxlcGljOTYwMlxhbnNpXHNwbH LgF2XzzsvqCXakCI4yJB5inRiwvAQgbZCiWRNuA pJwp9xwn499gFSec9gyJACEjagkiZt1uLkcA36e c7G0ZehjV62viZPgCHF6XLBxOZVclYYjSAZcFEF 2EOQreWHiW9kmNBDbEY3htkjhPFinLTnwQUQeaK D2GVTbpOIcH6HbNDYbTRnaNDYeitp4UbRiXx3rj ZNbbHhnIXlvGYFoZDLiXBvzNUJdVrXmE6LMQVPY WLALYJTqEViRLWXKQ0HWD8WKWzJFWQ7ADDQOX2S IE1MDDBm9CTIqcyLyVM3xDYVUMDXzJ29sE2nWS8 4WCuIFBW9PYQAYZ0YUCZxEJRbTLBgrHg6EABqsX R2LJDDZER3ZHUAXXOFXLGfOM8lNQKMyrjBhUR4z G4pNDJBEBKGDHBMNKSKckYMyETSgRCOHGNUDJTA gEXDYNSUSNXOXYP3zCTUCYkSYEQTQNBAQRHdpYV OpOULtEI2GULEAH4QKDRZSPOJWZaXXLXuDM44WW oZDEIWYUR8ktLHpQEFkyPGtzUcvcbVbLWxps3Sl JMkfRKWvDH2ekQtyHTCvZW2zUARrS7hqlL2ndxi 1KtLfKNUeOhR3IFUaqmS0Scn9NRHjSTtfd8rlo3 GyNEGiQPu9oWmzBfGdQOAho6dwjpOcPyUbDIXgW IVtSMRjcDXsD573t4pbf4dgvaSewGN0TYTiMJL3 HYnasnMviyQ2KNixhMEzGiT6FItrvbVuHGcnftD cccEkDgw7DQXcH090MST6lSumu9nwQBG0ACJhDJ QzJuKyNd8spTJaK498OFZlZORHDPNnsAv9XZDip jMhtsTqxODTi543C353f1ioQNYjzmIvvWaTwmfd c4knT881HUEujANinbVqRyPtRFQdlZBklSG8FAM vBL3amuzvYPmdPSobGXDjwcR3TWVbyJDsE3UxQZ OoMC2whyyrABF6TJyhCOIpBTT2LoOyNZQyj7Whi cs2PvNyws5ybi92SWE6t6WnwOtmWKV6JRO5WlJe Ll3kbUSnINGcOP3aOdSfvWNrDRYqgn74vWtzTDz mHRK6ZVTsqdEpn6Hdg7eqZgHtzgWfC8hsH3LsUB EzJAMbNRTzMqDmkkZuv1Sjc5PefUUyoTv7q2kyI MSbJVRlfDasj0mcFKY3MOHozIZqO0sskN5uTCDi OH9tsgaql9hzZUykVOzqUVEwuIX5pfI9XCXhaDG bW6PbpS0oTTRzAMhdJLGbtmo8QcQdJa4juGWqxS cyMFxzYmtwYWdlXHBnbmNvbnRccGduZGVjXHBsY WluXHBsYWluXGYwXGZzMjRccWxcbGFuZzEwMzNc wWscvKuvLQnkPgDoFWWfUEhrE3efGlMtWhLkQsp 1DGXhsKPuDXVjQuw7EPGytFFrSLXKzDzabB5mST HisYlcuP2reMD0DKDrvxZusDNYqW6yFDMScN1mY eEgAXGnFhF3GIegHiTrnZGsmM0= CPT Code(s) (test code = 1297) p3qipYRmMVTwvUG6MiSrWAMim2nlt1VctRFe cGF yNWfawOBzlzMlzu72eIW2fL43FH6sPLIhZhC2SM ZjarA8Xcm0JVRmQOWciQBlE093h5mta6egjkCat ZX0nFsyWROmfbesGuS9JGpfSZNntmszVIr7DSyj DRDxbXD3SCEdaFNqI8JhPPYdSL2aytu8MIG6SAh xNJGiEmQ2NWYaiAJtQJXlyMfkZGkjt336IUW7Iu EoHAAwicPnvPonuO6uMqSwQEI3KXMaTWyuZSQ7 CLINICAL HISTORY (test code = 4644) b1exzRUpZSUzkCM2RuSnCYWpp6tci7B sdHBncGF oAJawvEVfpvRhgj05yGC9gO22TQ1iEUQoWuW0BG UoovU2Bjx4XLGeXPSiwYYgM085t9bov0sepvSzo NU4zApjSLPvprbpYoH6OGemVQIzvbbeYLi7WCpt SVVpvCG4ZWGwbCYqU7ZoXTXrDM1wxqc9FTI7AMh zPGSoBfF0SMEuwUMzAKUtjFnfTRluk246NCM7Mk MgULBuwdEdnUkeeH1sGkTiJVBRAZhuh9ZfrcMcC FxwYXJ9 SPECIMEN SOURCE (test code = 3377) h2yraLJjSPXkqTO6GwEfMLGbq0wlj5Xe dHBncGF rUCvdbPLxsvDssv10eMK2nO91DP7vISYgWcH7AG YkgnT1Crq9YOEbEONsvBJcJ759p0aas5ywdqCtd RK5bYrtRZObiggrEyO2BDisCUAcupnrTIz4TGbz HNNboMS1GISqiTMkA4MeEMScQB3cvzu9VYC6BOp wKVRwHdY8YKMgiALkUXVzrDcaHXtxw529UKE0Xe XzUIYugwQcpYjfpX4cNoCiTVUVQRslWbbmWZCmu lxwYXJ9 GROSS DESCRIPTION (test code = [id number] [facility] [id number]) kPMlroCPvbbOift34sYF9uL74DZ9zMNVgZoO5EJ FfihV7Nhj3JQSrSFRqrTXzI797e1dxr8gmhbZmd UD0wTlbGCWoavsbNiX2NQtfFYPkjgcbVNe1WHyn TMPttVD5LEBjrDTuL2ChBLRcNU0pufz0CMJ3BFe sEJUpDlC5TOFyiOJwRQYdlWtrXEptp880JFY5Ea TcCZZxdpV6ZQhwVXKrE1GnW3ScXImcUKW3JCIcO MRhDQFwWYCxWEQoQVraxdM5s5hpWPIynAJnSQM7 PXpfkLKhUSBgISSnWBxuKwZPMnLjZwMvHMy0DNa 6UfI9HJf3PONHPtWxArNtNqj3NCu2EQyxUUn7FY u7VQkSOmU9SkN5BGAgBRXtEKApXxqmMGp2JIPfL VcvbWBcISXvMVTnKGjzBGazL71ypCjbjT3jBjAh BDNBDvYCJBwwDllmKKUlyb2bfTVqACCcFzTrHdH hEIq1PBXipD4qDl1cyAUliW7eqEIxWZozZXG9yP EhUORkWVDvLTVeQY50D1OjbJ9jh2UlVBGfe54iR K1eCItcZsWkVFRbOddupPgmmNSwPTJqIsLqumDe EMLpCUYrmJJsHR7pXZdwcEjciWThPFGcDN6kMHF 6kbamTyT5EnZrzUYxXiYjxVX8iXH2wfTtSCYnGo DFhQKia6JyP8zyPD8isWGtf3XguCgjTLOngZW7p PXiB8zvmChpQSD0L7UqbHDtC2slFnKKmOOej4Gl f9QaTAvbQRYmhl1pniQswxR9kVCfDYA6kLOjuWM yNMEhDP98QFYsyE0pUGgeSLu5mXNgQBXohqTlzV 9rNUvwOMCfNXZfu7OsSSXiqLcsGTBaQGJpWDU8h 78fDKUnvmMxyhcwxy4myZskvrOuqzOfrDPry5Es rX8mQKBaK80ngJ8pqNM8iE8vdTCtjH8cjbAye64 bDQPrXFThzCJky7PofXFnQgqsXHIfqBIkihTiCd VFgBJcp4ZumWS6sKrvi76ri2QwuLGmTN15UFXsH sSVoUYcAINjgtBcZDP6Q7zhe7Rea13le7GhQ5ep mRRkrFZfi9swi7xjLdFGLMKiOJOhwsNrdTu0SPQ uMPT3aB2ouaEyyaTedRBajlibqTgrBZF6q8WpTo OvaIY8RK9ixscwehIdoaTfi4TnlEg4eEGfRHynE KNmm2XelKQoUWrkIrAoZLKeXIEsWR2dNHC0b3Bd EuSqcZD7ICi6jGRiNB0hBNUoyIYsuGChicRwTvw wCC8tHqrdVAd7PCDpqQTcRZX4VN8vyDdeTDGuU0 ZaW4FjakH7ATLnas8= MICROSCOPIC DESCRIPTION (test code = [id number] [facility] [place] [facility]) aWUyovWCifnRifs87vWA2uH74LY6pHRUeKsQ9QX AhsaJ2Wbz3VNIvGNXymFJhL908n6qpn2kyjyTfz HE0tBemTNUsbswnYaK8DEqeFKBrybbwSNs0UCom UEOoxCB0MUTobJAvA2RwJSMvTA7ioot6LKB7STb mNALfNxW9EQPvbMYkIPOntFclZWcxh218PMC2Vm NkXLNtgoXthYseiJ2hYjNiSRFTDIZBF3BXWEEet GFyfQ== [facility] [id number] 18:17:34Surgical Pathology Report Case: [id number] Authorizing Provider: Andrei Cronin MD Collected: 04/01/2022 01:42 PM Ordering Location: [facility] Med Surg 5th Floor Received: 04/04/2022 08:26 AM Pathologist: Cata Quiñones MD Specimen: Gallbladder GALLBLADDER, LAPAROSCOPIC CHOLECYSTECTOMY: - 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 Gallbladder.Received in formalin labeled with the patient's information and labeled "gallbladder" is a specimen of gallbladder measuring 8.2 x 3.5 x up to 1 cm. The specimen is stapled at the cystic duct margin. The serosa is cavanaugh-green with attached scant fat. The lumen contains green viscid bile and a stone, green, nodular and measuring 1cm in maximal dimension. The mucosa is bile stained. The wall thickness is 0.4 cm. There is a suggestion of cholesterolosis. Funding Coordinator sections including the cystic duct margin are submitted in cassette labeled A1. No cystic duct lymph node is identified.BH/ewPERFORMEDPOC- Glucose [id number] 13:06:05 Test Item Value Reference Range Interpretation Comments POC-Glucose Meter (test 160 mg/dL 70-110 H : TE STED AT [facility] code = 1538) [address] [facility] [address]: Key Holder/Techni oj ID = [id number] for Ju Moody Lab Interpretation (test Abnormal code = 65787-6) [facility] [id number] 13:06:05 Test Item Value Reference Range Interpretation Comments POC-GLUCOSE METER 160 mg/dL 70-110 H : TESTED A T [facility] 1317 (BEAKER) (test code [facility], = 1538) [facility] [place] [address]: Key Holder/Techni oj ID = [id number] for Ju Pittman [id number] 09:16:16 Test Item Value Reference Range Interpretation Comments MAGNESIUM (BEAKER) (test code = 1.8 mg/dL 1.5-3.0 627) Key Holder ID - [id number] ID - [id number] ID - [id number] ID - [id number] METABOLIC [id number] 05:47:00 Test Item Value Reference Range Interpretation Comments SODIUM (BEAKER) (test 143 meq/L 135-148 code = 381) POTASSIUM (BEAKER) 3.1 meq/L 3.6-5.5 L (test code = 379) CHLORIDE (BEAKER) 105 meq/L 98-106 (test code = 382) CO2 (BEAKER) (test 29 meq/L 20-29 code = 355) BLOOD UREA NITROGEN 7 mg/dL 10-26 L (BEAKER) (test code = 354) CREATININE (BEAKER) 0.65 mg/dL 0.50-1.20 (test code = 358) GLUCOSE RANDOM 129 mg/dL 70-110 H (BEAKER) (test code = 652) CALCIUM (BEAKER) 8.5 mg/dL 8.5-10.5 (test code = 697) EGFR (BEAKER) (test INSUFFIC IENT CLINICAL code = 1092) DATA TO CALCULA TE ESTIMATED GFR. Key Holder ID - [id number] ID - [id number] ID - [id number] ID - [id number] ID - [id number] ID - [id number] ID - [id number] ID - [id number] ID - [id number] ID - [id number] ID - [id number] ID - [id number] ID - [id number] METABOLIC [id number] 05:42:12 Test Item Value Reference Range Interpretation Comments TOTAL PROTEIN 6.0 gm/dL 6.0-8.5 (BEAKER) (test code = 770) ALBUMIN (BEAKER) 3.5 g/dL 3.5-5.0 (test code = 1145) ALKALINE PHOSPHATASE 65 U/L 30-115 (BEAKER) (test code = 346) BILIRUBIN TOTAL 0.3 mg/dL 0.1-1.2 (BEAKER) (test code = 377) SODIUM (BEAKER) (test 135 meq/L 135-148 code = 381) POTASSIUM (BEAKER) 3.5 meq/L 3.6-5.5 L (test code = 379) CHLORIDE (BEAKER) 102 meq/L 98-106 (test code = 382) CO2 (BEAKER) (test 28 meq/L 20-29 code = 355) BLOOD UREA NITROGEN 6 mg/dL 10-26 L (BEAKER) (test code = 354) CREATININE (BEAKER) 0.65 mg/dL 0.50-1.20 (test code = 358) GLUCOSE RANDOM 109 mg/dL 70-110 (BEAKER) (test code = 652) CALCIUM (BEAKER) 8.6 mg/dL 8.5-10.5 (test code = 697) AST (SGOT) (BEAKER) 35 U/L 5-40 (test code = 353) ALT (SGPT) (BEAKER) 99 U/L 5-50 H (test code = 347) EGFR (BEAKER) (test INSUFFIC IENT CLINICAL code = 1092) DATA TO CALCULA TE ESTIMATED GFR. Key Holder ID - LITOOperator ID - LITOOperator ID - LITOOperator ID - LITOOperator ID - LITOOperator ID - LITOOperator ID - LITOOperator ID - LITOOperator ID - LITOOperator ID - LITOOperator ID - LITOOperator ID - LITOOperator ID - LITOOperator ID - LITOOperator ID - LITOOperator ID - LITOOperator ID - L ITOOperator ID - LITOOperator ID - [id number] (HEMOGRAM ONLY)2022-04-02 05:20:25 Test Item Value Reference Range Interpretation Comments WHITE BLOOD CELL COUNT (BEAKER) 8.6 K/ L 4.0-10.0 (test code = 775) RED BLOOD CELL COUNT (BEAKER) 3.90 M/ L 4.00-5.00 L (test code = 761) HEMOGLOBIN (BEAKER) (test code = 11.9 GM/DL 12.0-15.5 L 410) HEMATOCRIT (BEAKER) (test code = 35.8 % 36.0-46.0 L 411) MEAN CORPUSCULAR VOLUME (BEAKER) 91.8 fL 82.0-99.0 (test code = 753) MEAN CORPUSCULAR HEMOGLOBIN 30.5 pg 27.0-33.0 (BEAKER) (test code = 751) MEAN CORPUSCULAR HEMOGLOBIN CONC 33.2 GM/DL 32.0-36.0 (BEAKER) (test code = 752) RED CELL DISTRIBUTION WIDTH 13.7 % 12.0-15.0 (BEAKER) (test code = 412) PLATELET COUNT (BEAKER) (test 184 K/CU MM 150-430 code = 756) MEAN PLATELET VOLUME (BEAKER) 11.4 fL 6.0-11.5 (test code = 754) NUCLEATED RED BLOOD CELLS 0 /100 WBC 0-0 (BEAKER) (test code = 413) COMPREHENSIVE METABOLIC [id number] 06:39:29 Test Item Value Reference Range Interpretation Comments TOTAL PROTEIN 6.3 gm/dL 6.0-8.5 (BEAKER) (test code = 770) ALBUMIN (BEAKER) 3.6 g/dL 3.5-5.0 (test code = 1145) ALKALINE PHOSPHATASE 73 U/L 30-115 (BEAKER) (test code = 346) BILIRUBIN TOTAL 0.4 mg/dL 0.1-1.2 (BEAKER) (test code = 377) SODIUM (BEAKER) (test 140 meq/L 135-148 code = 381) POTASSIUM (BEAKER) 3.9 meq/L 3.6-5.5 (test code = 379) CHLORIDE (BEAKER) 105 meq/L 98-106 (test code = 382) CO2 (BEAKER) (test 27 meq/L 20-29 code = 355) BLOOD UREA NITROGEN 8 mg/dL 10-26 L (BEAKER) (test code = 354) CREATININE (BEAKER) 0.62 mg/dL 0.50-1.20 (test code = 358) GLUCOSE RANDOM 95 mg/dL 70-110 (BEAKER) (test code = 652) CALCIUM (BEAKER) 8.4 mg/dL 8.5-10.5 L (test code = 697) AST (SGOT) (BEAKER) 57 U/L 5-40 H (test code = 353) ALT (SGPT) (BEAKER) 130 U/L 5-50 H (test code = 347) EGFR (BEAKER) (test INSUFFIC IENT CLINICAL code = 1092) DATA TO CALCULA TE ESTIMATED GFR. Key Holder ID - [id number] ID - [id number] ID - [id number] ID - [id number] ID - [id number] ID - [id number] ID - [id number] ID - [id number] ID - HNZM96Dfvgwuyn ID - [id number] ID - NLBI82Tsbikwfh ID - [id number] ID - [id number] ID - VUIH80Cfwacggj ID - [id number] ID - [id number] ID - IKNW74Zxcurheb ID - [id number] ID - [id number] I 2022-04-01 06:31:42 Test Item Value Reference Range Interpretation Comments TROPONIN I (BEAKER) (test code = 397) < ng/mL 0.00-0.15 Troponin I (TnI) levels must be interpreted in the context of the presenting symptoms and the clinical findings. Elevated TnI levels indicate myocardial damage, but are not specific for ischemic heart disease. Elevated TnI levels are seen in patients with other cardiac conditions (including myocarditis and congestive heart failure), and slight TnI elevations occur in patients with other conditions, including sepsis, renal failure, acidosis, acute neurological disease, and persistent tachyarrhythmia.Key Holder ID - [id number] (HEMOGRAM ONLY) 2022-04-01 06:00:37 Test Item Value Reference Range Interpretation Comments WHITE BLOOD CELL COUNT (BEAKER) 6.3 K/ L 4.0-10.0 (test code = 775) RED BLOOD CELL COUNT (BEAKER) 3.93 M/ L 4.00-5.00 L (test code = 761) HEMOGLOBIN (BEAKER) (test code = 12.0 GM/DL 12.0-15.5 410) HEMATOCRIT (BEAKER) (test code = 36.4 % 36.0-46.0 411) MEAN CORPUSCULAR VOLUME (BEAKER) 92.6 fL 82.0-99.0 (test code = 753) MEAN CORPUSCULAR HEMOGLOBIN 30.5 pg 27.0-33.0 (BEAKER) (test code = 751) MEAN CORPUSCULAR HEMOGLOBIN CONC 33.0 GM/DL 32.0-36.0 (BEAKER) (test code = 752) RED CELL DISTRIBUTION WIDTH 13.7 % 12.0-15.0 (BEAKER) (test code = 412) PLATELET COUNT (BEAKER) (test 192 K/CU MM 150-430 code = 756) MEAN PLATELET VOLUME (BEAKER) 11.5 fL 6.0-11.5 (test code = 754) NUCLEATED RED BLOOD CELLS 0 /100 WBC 0-0 (BEAKER) (test code = 413) PROTHROMBIN TIME/[id number] 01:23:51 Test Item Value Reference Range Interpretation Comments PROTIME (BEAKER) 11.3 seconds 9.3-12.0 Final Infor mation (test code = 759) (Auto Outp ut) INR (BEAKER) (test 1.03 See_Comment Final Inf ormation code = 370) (Auto Output) [Automated mess age] The system [employer] generated this result transmitted ref erence range: <=5.90. The reference range was not used to int erpret this result as normal/abnormal . RECOMMENDED COUMADIN/WARFARIN INR THERAPY RANGESSTANDARD DOSE: 2.0 - 3.0 Includes: PROPHYLAXIS for venous thrombosis, systemic embolization; TREATMENT for venous thrombosis and/or pulmonary embolus.HIGH RISK: Target INR is 2.5-3.5 for patients with mechanical heart valves.TROPONIN [id number] 00:46:44 Test Item Value Reference Range Interpretation Comments TROPONIN I (BEAKER) (test code = 397) < ng/mL 0.00-0.15 Troponin I (TnI) levels must be interpreted in the context of the presenting symptoms and the clinical findings. Elevated TnI levels indicate myocardial damage, but are not specific for ischemic heart disease. Elevated TnI levels are seen in patients with other cardiac conditions (including myocarditis and congestive heart failure), and slight TnI elevations occur in patients with other conditions, including sepsis, renal failure, acidosis, acute neurological disease, and persistent tachyarrhythmia.Key Holder ID - TCAMACHOCOMPREHENSIVE METABOLIC [id number] 19:27:32 Test Item Value Reference Range Interpretation Comments TOTAL PROTEIN 6.5 gm/dL 6.0-8.5 Specimen sligh tly (BEAKER) (test code = hemoly zed 770) ALBUMIN (BEAKER) 3.8 g/dL 3.5-5.0 Specimen sl ightly (test code = 1145) hemolyzed ALKALINE PHOSPHATASE 77 U/L 30-115 (BEAKER) (test code = 346) BILIRUBIN TOTAL 0.4 mg/dL 0.1-1.2 Specimen sli ghtly (BEAKER) (test code = hemoly zed 377) SODIUM (BEAKER) (test 143 meq/L 135-148 code = 381) POTASSIUM (BEAKER) 3.4 meq/L 3.6-5.5 L Specimen slightly (test code = 379) hemolyzed CHLORIDE (BEAKER) 108 meq/L 98-106 H (test code = 382) CO2 (BEAKER) (test 24 meq/L 20-29 code = 355) BLOOD UREA NITROGEN 9 mg/dL 10-26 L (BEAKER) (test code = 354) CREATININE (BEAKER) 0.66 mg/dL 0.50-1.20 Specimen slightly (test code = 358) hemolyzed GLUCOSE RANDOM 85 mg/dL 70-110 (BEAKER) (test code = 652) CALCIUM (BEAKER) 8.6 mg/dL 8.5-10.5 (test code = 697) AST (SGOT) (BEAKER) 91 U/L 5-40 H Specimen slightly (test code = 353) hemolyzed ALT (SGPT) (BEAKER) 165 U/L 5-50 H Specimen slightly (test code = 347) hemolyzed EGFR (BEAKER) (test INSUFFIC IENT CLINICAL code = 1092) DATA TO CALCULA TE ESTIMATED GFR. Key Holder ID - [id number] ID - [id number] ID - [id number] ID - [id number] ID - [id number] ID - [id number] ID - [id number] ID - [id number] ID - [id number] ID - [id number] ID - [id number] ID - [id number] ID - [id number] ID - [id number] ID - [id number] ID - [id number] ID - [id number] ID - [id number] ID - [id number] (HEMOGRAM ONLY)2022-03-31 19:03:31 Test Item Value Reference Range Interpretation Comments WHITE BLOOD CELL COUNT (BEAKER) 5.0 K/ L 4.0-10.0 (test code = 775) RED BLOOD CELL COUNT (BEAKER) 4.17 M/ L 4.00-5.00 (test code = 761) HEMOGLOBIN (BEAKER) (test code = 12.5 GM/DL 12.0-15.5 410) HEMATOCRIT (BEAKER) (test code = 40.2 % 36.0-46.0 411) MEAN CORPUSCULAR VOLUME (BEAKER) 96.4 fL 82.0-99.0 (test code = 753) MEAN CORPUSCULAR HEMOGLOBIN 30.0 pg 27.0-33.0 (BEAKER) (test code = 751) MEAN CORPUSCULAR HEMOGLOBIN CONC 31.1 GM/DL 32.0-36.0 L (BEAKER) (test code = 752) RED CELL DISTRIBUTION WIDTH 14.1 % 12.0-15.0 (BEAKER) (test code = 412) PLATELET COUNT (BEAKER) (test 180 K/CU MM 150-430 code = 756) MEAN PLATELET VOLUME (BEAKER) 11.4 fL 6.0-11.5 (test code = 754) NUCLEATED RED BLOOD CELLS 0 /100 WBC 0-0 (BEAKER) (test code = 413) POCT-GLUCOSE [id number] 18:11:53 Test Item Value Reference Range Interpretation Comments POC-GLUCOSE METER 91 mg/dL 70-110 : TESTED A T [facility] 1317 (BEAKER) (test code = [address], 1538) [facility] [place] 77 [address]: Key Holder/Techni oj ID = [id number] for Walter brianne, Phyllis RAD, SPINE, LUMBAR, COMPLETE, WITH [id number] 13:16:00Reason for Exam:- >chronic midline low back pain with left sided sciaticaFINAL REPORT LUMBAR SPINE X-RAY - SEVEN VIEWS HISTORY: chronic midline low back pain with left sided sciatica COMPARISON: None available. FINDINGS:Bones:No acute displaced fracture. Osseous alignment is within normal limits. No instability on flexion and extension views. Joints:Moderate disc space narrowing and foraminal narrowing at L5-S1. The remaining lumbar spine is unremarkable. Soft tissues:The soft tissues appear unremarkable. IMPRESSION: Moderate disc space narrowing andforaminal narrowing at L5-S1. Signed: Deanne Austin MDReport Verified Date/Time: 01/21/2019 13:16:54
[2022-07-27] MEDS ORDERED: HYDROCODONE/APAP 5/325 MG TAB ONE (10:47)
--- NOTE | 2022-07-27 11:31 | RAD REPORT ---
EXAM DESCRIPTION: RAD - Knee Right 3 View - 07/27/2022 11:14 am CLINICAL HISTORY: PAINafter fall COMPARISON: No comparisonsNone. FINDINGS: No fracture, dislocation or periosteal reaction.No joint effusion seen. Small bone density along the superolateral patella is believed to be a bipartite configuration. No joint space narrowin g. Slight thickening of the soft tissues anterior to the patella and patella tendon is probably post trauma contusion or edema. No foreign body. Patella tendon has a normal appearance. IMPRESSION: Negative right knee for bone or joint acute abnormality.
--- NOTE | 2022-07-27 11:33 | RAD REPORT ---
EXAM DESCRIPTION: RAD - Knee Left 3 View - 07/27/2022 11:13 am CLINICAL HISTORY: PAINafter fall COMPARISON: Knee Left 3 View dated 05/12/2021 FINDINGS: No fracture, dislocation or periosteal reaction.No joint effusion seen. Small focal defect along the superolateral margin of patella is believed to be a bipartite configuration similar to the right knee. No joint space narrowing. Minimal contusion or edema anterior to the patella and patella tendon. IMPRESSION: No acute abnormality of the bones are knee joint.
--- NOTE | 2022-07-27 11:34 | RAD REPORT ---
EXAM DESCRIPTION: RAD - Hand Left 3 View - 07/27/2022 11:12 am CLINICAL HISTORY: PAINfollowing a fall COMPARISON: None. FINDINGS: No fracture, dislocation or periosteal reaction noted. IP joint space narrowing is present without spurring or erosive component. Minimal degenerative change at the first carpal - metacarpal joint and the trapezium first metacarpal articulation. Radiocarpal joint space is narrowed slightly. No air or foreign body in the soft tissues. IMPRESSION: Left hand degenerative change with no acute bone finding.
--- NOTE | 2022-07-27 11:34 | RAD REPORT ---
EXAM DESCRIPTION: RAD - Forearm Left - 07/27/2022 11:11 am CLINICAL HISTORY: PAINfollowing a fall COMPARISON: None. FINDINGS: No fracture is identified. There is no dislocation or periosteal reaction noted. No foreign body or other soft tissue abnormality. IMPRESSION: Negative left forearm examination.
--- NOTE | 2022-07-27 11:37 | ER ---
Nurse's Notes [facility] Name: Halima Rao Age: 67 yrs Sex: Female : 1955 Arrival Date: 07/27/2022 Time: 09:51 Bed 12 Private MD: Nicholas Martinez Diagnosis: Contusion of left knee;Contusion of right knee;Strain of other muscles, fascia and tendons at forearm level, left arm;Sprain of other part of left wrist and hand Presentation: 07/27 10:12 Chief complaint: Patient states: "I was walking to the car and the ground was unleveled vg1 and I tripped and fell on both knees and caught myself with my hands" Pt states more pain to Left hand and arm; appears to have bruising to Left hand. Coronavirus screen: Vaccine status: Patient reports receiving the 2nd dose of the covid vaccine. Client denies travel out of the [place] in the last 14 days. Ebola Screen: Patient denies exposure to infectious person. Patient denies travel to an Ebola-affected area in the 21 days before illness onset. Initial Sepsis Screen: Does the patient meet any 2 criteria? No. Patient's initial sepsis screen is negative. Does the patient have a suspected source of infection? No. Patient's initial sepsis screen is negative. Risk Assessment: Do you want to hurt yourself or someone else? Patient reports no desire to harm self or others. Onset of symptoms was July 27, 2022. 10:12 Method Of Arrival: Wheelchair vg1 10:12 Acuity: RAZIA 4 vg1 Triage Assessment: 10:17 General: Appears uncomfortable, Behavior is calm, cooperative. Pain: Complains of pain vg1 in right knee, left knee, Left arm, left hand, right hand Pain currently is 8 out of 10 on a pain scale. Musculoskeletal: Range of motion: limited in lefrt arm. Historical: - Allergies: 10:17 No Known Allergies; vg1 - PMHx: 10:17 Hypertensive disorder; vg1 - Immunization history:: Client reports receiving the 2nd dose of the Covid vaccine. - Social history:: Smoking status: Patient denies any tobacco usage or history of. - Family history:: not pertinent. - Hospitalizations: : No recent hospitalization is reported. Screenin:54 Abuse screen: Denies threats or abuse. Nutritional screening: No deficits noted. ss Tuberculosis screening: No symptoms or risk factors identified. Fall Risk None identified. Assessment: 11:54 Reassessment: No changes from previously documented assessment. ss Vital Signs: 10:12 BP 135 / 94; Pulse 70; Resp 18; Temp 97.9(TE); Pulse Ox 99% on R/A; Weight 81.19 kg; vg1 Height 5 ft. 2 in. (157.48 cm); Pain 8/10; 12:38 BP 137 / 79; Pulse 80; Resp 16; Pulse Ox 100% on R/A; Pain 3/10; bm7 10:12 Body Mass Index 32.74 (81.19 kg, 157.48 cm) vg1 ED Course: 09:51 Patient arrived in ED. mr 09:51 Nicholas Martinez DO is Private Physician. mr 09:57 Geovanny Cisneros MD is Attending Physician. rn 10:17 Triage completed. vg1 10:17 Arm band placed on. vg1 10:38 Madie Mills, JUNE is Primary Nurse. bm7 11:10 XRAY Forearm LEFT In Process Unspecified. EDMS 11:10 XRAY Hand LEFT 3 View In Process Unspecified. EDMS 11:10 XRAY Knee LEFT 3 view In Process Unspecified. EDMS 11:10 XRAY Knee RIGHT 3 view In Process Unspecified. EDMS 11:36 Jose Parsons MD is Referral Physician. rn 11:54 Patient has correct armband on for positive identification. Client placed on continuous ss cardiac and pulse oximetry monitoring. NIBP monitoring applied. 11:54 No provider procedures requiring assistance completed. Patient did not have IV access ss during this emergency room visit. Administered Medications: 10:39 Drug: HYDROcodone-acetaminophen 5 mg-325 mg 1 tabs Route: PO; bm7 12:38 Follow up: Response: Pain is decreased bm7 Medication: 11:54 VIS not applicable for this client. ss Outcome: 11:37 Discharge ordered by . rn 12:37 Discharged to home ambulatory, with family. bm7 12:37 Condition: good 12:37 Discharge instructions given to patient, family, Instructed on discharge instructions, follow up and referral plans. medication usage, Demonstrated understanding of instructions, follow-up care, medications, Prescriptions given X 1. 12:38 Patient left the ED. bm7 Signatures: Dispatcher [employer] ED Soraya Crump mr Cisneros, MD MD june Small Shelby, June Allison RN, RN RN vg1 Madie Mills RN RN bm7
--- NOTE | 2022-07-27 11:38 | EDPHYS ---
Physician Documentation [facility] Name: Halima Rao Age: 67 yrs Sex: Female : 1955 Arrival Date: 07/27/2022 Time: 09:51 Bed 12 Private MD: Michael Martinezh ED Physician Geovanny Cisneros HPI: 07/27 11:33 This 67 yrs old Female presents to ER via Wheelchair with complaints of fall. rn 11:33 Details of fall: The patient fell from an upright position, while walking. Onset: The rn symptoms/episode began/occurred today. Associated injuries: The patient sustained left arm and both knees. Severity of symptoms: At their worst the symptoms were mild, in the emergency department the symptoms are unchanged. The patient has not experienced similar symptoms in the past. The patient has not recently seen a physician. No head/back/neck injury. No pain to chest/ribs.. Historical: - Allergies: 10:17 No Known Allergies; vg1 - PMHx: 10:17 Hypertensive disorder; vg1 - Immunization history:: Client reports receiving the 2nd dose of the Covid vaccine. - Social history:: Smoking status: Patient denies any tobacco usage or history of. - Family history:: not pertinent. - Hospitalizations: : No recent hospitalization is reported. ROS: 11:33 Constitutional: Negative for fever, chills, and weight loss, Eyes: Negative for injury, rn pain, redness, and discharge, Neck: Negative for injury, pain, and swelling, Cardiovascular: Negative for chest pain, palpitations, and edema, Respiratory: Negative for shortness of breath, cough, wheezing, and pleuritic chest pain, Abdomen/GI: Negative for abdominal pain, nausea, vomiting, diarrhea, and constipation, Back: Negative for injury and pain, MS/Extremity: + left arm and both knee injury/pain Skin: Negative for injury, rash, and discoloration, Neuro: Negative for headache, weakness, numbness, tingling, and seizure. Exam: 11:33 Constitutional: This is a well developed, well nourished patient who is awake, alert, rn and in no acute distress. Head/Face: Normocephalic, atraumatic. Eyes: Periorbital areas with no swelling, redness, or edema. Cardiovascular: Regular rate and rhythm. No pulse deficits. Respiratory: No increased work of breathing, no retractions or nasal flaring. Abdomen/GI: Soft, non-tender Skin: Warm, dry MS/ Extremity: Pulses equal, no cyanosis. Neurovascular intact. + mild painful ROM left forearm and wrist. + mild swelling and bruising to left wrist/hand. + contusions with abrasions to bilateral knees. NO lacerations. FROM both knees. Neuro: Awake and alert, GCS 15 Vital Signs: 10:12 BP 135 / 94; Pulse 70; Resp 18; Temp 97.9(TE); Pulse Ox 99% on R/A; Weight 81.19 kg; vg1 Height 5 ft. 2 in. (157.48 cm); Pain 8/10; 12:38 BP 137 / 79; Pulse 80; Resp 16; Pulse Ox 100% on R/A; Pain 3/10; bm7 10:12 Body Mass Index 32.74 (81.19 kg, 157.48 cm) vg1 MDM: 09:57 Patient medically screened. rn 11:36 Differential diagnosis: abrasion, contusion, fracture, sprain, strain. Data reviewed: rn vital signs, nurses notes, radiologic studies, plain films, and as a result, I will discharge patient. Counseling: I had a detailed discussion with the patient and/or guardian regarding: the historical points, exam findings, and any diagnostic results supporting the discharge/admit diagnosis, the need for outpatient follow up, to return to the emergency department if symptoms worsen or persist or if there are any questions or concerns that arise at home. Response to treatment: the patient's symptoms have mildly improved after treatment. Special discussion: I discussed with the patient/guardian in detail that at this point there is no indication for admission to the hospital. It is understood, however, that if the symptoms persist or worsen the patient needs to return immediately for re-evaluation. 07/27 10:27 Order name: XRAY Forearm LEFT; Complete Time: 11:35 rn 07/27 10:27 Order name: XRAY Hand LEFT 3 View; Complete Time: 11:35 rn 07/27 10:27 Order name: XRAY Knee LEFT 3 view; Complete Time: 11:35 rn 07/27 10:27 Order name: XRAY Knee RIGHT 3 view; Complete Time: 11: rn 07/27 11:55 Order name: Denise; Complete Time: 11:58 ss Administered Medications: 10:39 Drug: HYDROcodone-acetaminophen 5 mg-325 mg 1 tabs Route: PO; bm7 12:38 Follow up: Response: Pain is decreased bm7 Disposition Summary: 07/27/22 11:37 Discharge Ordered Location: Home rn Problem: new rn Symptoms: have improved rn Condition: Stable rn Diagnosis - Contusion of left knee rn - Contusion of right knee rn - Strain of other muscles, fascia and tendons at forearm level, left arm rn - Sprain of other part of left wrist and hand rn Followup: rn - With: Jose Parsons MD - When: As needed - Reason: Recheck today's complaints, Re-evaluation by your physician Discharge Instructions: - Discharge Summary Sheet rn - Contusion rn - Wrist Sprain Rehab-[facility] rn Forms: - Work release form rn - Family Work Release rn - Medication Reconciliation Form rn - Thank You Letter rn - Antibiotic turn down worker - Prescription Opioid Use rn Prescriptions: - Cyclobenzaprine 10 mg Oral Tablet - take 1 tablet by ORAL route every 8 hours As needed; 15 tablet; Refills: 0, rn Product Selection Permitted Signatures: Dispatcher [employer] Geovanny Duran MD MD rn Smirch, Shelby, RN RN ss June Navarro, RN RN vg1 Madie Mills, RN RN bm7
[2022-07-28 02:02] VITALS: TEMP 97.9
[2022-07-28 02:12] VITALS: BP 137/79; O2SAT 100
== END 2022-07-27 12:38 | disposition home or self-care (01) ==
LOC: ER 09:48
DX: S63.8X2A Sprain of other part of left wrist and hand, initial encounter (principal); S56.812A Strain of other muscles, fascia and tendons at forearm level, left arm, initial encounter; S80.02XA Contusion of left knee, initial encounter; S80.01XA Contusion of right knee, initial encounter
CPT/HCPCS: 99283

== ENCOUNTER → 2023-11-08 | Emergency (ER) | payer OTHER ==
[~2023-11-08] MED LIST: CYCLOBENZAPRINE 10 MG TAB ONE; KETOROLAC 30 MG/ML INJ ONE; dexAMETHasone 10 MG/ML VIAL ONE
--- NOTE | 2023-11-08 21:31 | RAD REPORT ---
EXAM DESCRIPTION: CT - Spine Lumbar Wo Con - 11/08/2023 9:15 pm CLINICAL HISTORY: Radiculopathy. LOWER BACK PAIN COMPARISON: No comparisons TECHNIQUE: Axial noncontrast CT imaging of the lumbar spine was performed with coronal and sagittal re-formatted images. All CT scans are performed using dose optimization technique as appropriate and may include automated exposure control or mA/KV adjustment according to patient size. FINDINGS: No acute lumbar spine fracture seen. No aggressive marrow pattern or malalignment. Paraspinal tissues are normal in thickness. No paraspinal abscess or hematoma seen. Mild posterior disc bulges are seen lowest lumbar levels most notable at L5-S1. Within these limitati ons, no high-grade canal stenosis suspected. IMPRESSION: No acute lumbar spine abnormality. Mild lower lumbar spondylosis.
--- NOTE | 2023-11-08 21:40 | ER ---
Nurse's Notes [facility] Name: Halima Rao Age: 68 yrs Sex: Female : 1955 Arrival Date: 11/08/2023 Time: 19:48 Bed 12 Private MD: Diagnosis: Strain of muscle, fascia and tendon of lower back Presentation: 11/08 20:04 Chief complaint: Patient states: I was trying to lift a pack of water off of the ground kd3 and now i have pain in my sacral area that is a 10/10. I do not have any numbness or sharp shooting pain in my legs. The pain is only in my lower back and sacral area. Coronavirus screen: Vaccine status: Patient reports receiving the 2nd dose of the covid vaccine. Coronavirus screen: Adrian and moderna. Ebola Screen: No symptoms or risks identified at this time. Initial Sepsis Screen: Does the patient meet any 2 criteria? No. Patient's initial sepsis screen is negative. Does the patient have a suspected source of infection? No. Patient's initial sepsis screen is negative. Risk Assessment: Do you want to hurt yourself or someone else? Patient reports no desire to harm self or others. Onset of symptoms was November 08, 2023. 20:04 Method Of Arrival: Wheelchair kd3 20:04 Acuity: RAZIA 4 kd3 Triage Assessment: 20:07 General: Appears uncomfortable, Behavior is calm, cooperative. Pain: Complains of pain kd3 in coccyx. Historical: - PMHx: 20:07 Hypertensive disorder; kd3 - Immunization history:: Adult Immunizations up to date. - Social history:: Smoking status: unknown. Screenin:56 [facility] ED Fall Risk Assessment (Adult) History of falling in the last 3 months, cm10 including since admission No falls in past 3 months (0 pts) Confusion or Disorientation No (0 pts) Intoxicated or Sedated No (0 pts) Impaired Gait No (0 pts) Mobility Assist Device Used No (0 pt) Altered Elimination No (0 pt) Score/Fall Risk Level 0 - 2 = Low Risk Oriented to surroundings, Maintained a safe environment, Hourly rounding (assess needs \T\ fall precautionary measures) done. Abuse screen: Denies threats or abuse. Denies injuries from another. Nutritional screening: No deficits noted. Tuberculosis screening: No symptoms or risk factors identified. Assessment: 20:54 General: Appears in no apparent distress. uncomfortable. Pain: Complains of pain in low cm10 back area. Neuro: No deficits noted. Level of Consciousness is awake, alert, obeys commands, Oriented to person, place, time, situation. Cardiovascular: No deficits noted. Patient's skin is warm and dry. Respiratory: No deficits noted. Airway is patent Respiratory effort is even, unlabored, Respiratory pattern is regular, symmetrical. GI: No deficits noted. No signs and/or symptoms were reported involving the gastrointestinal system. : No deficits noted. No signs and/or symptoms were reported regarding the genitourinary system. EENT: No deficits noted. No signs and/or symptoms were reported regarding the EENT system. Derm: No deficits noted. No signs and/or symptoms reported regarding the dermatologic system. Skin is intact, Skin is pink, warm \T\ dry. Musculoskeletal: No deficits noted. Range of motion: intact in all extremities, Reports pain in lumbar area. Vital Signs: 20:04 BP 94 / 78; Pulse 71; Resp 16; Temp 97.9(TE); Pulse Ox 99% ; Weight 78.02 kg; Height 5 kd3 ft. 4 in. ; Pain 10/10; 20:04 Body Mass Index 29.52 (78.02 kg, 162.56 cm) kd3 20:04 Pain Scale: Adult kd3 ED Course: 19:53 Patient arrived in ED. ae5 19:54 Mague Nino PA-C [facility]. sb4 19:54 Santiago Irvin MD is Attending Physician. sb4 20:07 Triage completed. kd3 20:08 Arm band placed on left wrist. kd3 20:56 Patient has correct armband on for positive identification. Bed in low position. Call cm10 light in reach. Provided Education on: ER process and procedures.. Cardiac monitoring not applicable on this patient. 21:15 CT Lumbar Spine Wo Con In Process Unspecified. EDMS 21:59 No provider procedures requiring assistance completed. Patient did not have IV access cm10 during this emergency room visit. Administered Medications: 20:25 Drug: Ketorolac IM 30 mg IM once Route: IM; Site: right gluteus; kd3 20:25 Drug: Dexamethasone IM 10 mg IM once Route: IM; Site: left deltoid; kd3 20:25 Drug: Cyclobenzaprine PO 10 mg PO once Route: PO; kd3 Medication: 20:56 VIS not applicable for this client. cm10 Outcome: 21:40 Discharge ordered by . angela 21:59 Discharged to home ambulatory, with family, cm10 21:59 Condition: good 21:59 Discharge instructions given to patient, Instructed on discharge instructions, follow up and referral plans. medication usage, Demonstrated understanding of instructions, follow-up care, medications, Prescriptions given X 3, 22:00 Patient left the ED. cm10 Signatures: Dispatcher [employer] EDMS Susana Juarez RN RN kd3 Mague Nino PA-C PALionel [email or web address] Kimberlyn Lopez RN RN cm10 Addis Broussard ae5 Corrections: (The following items were deleted from the chart) 20:08 20:07 PMHx: hysterectcomy (Hypertensive disorder); kd3 kd3 20:09 20:04 Chief complaint: Patient states: I was trying to lift a pack of water off of the kd3 ground and now i have pain in my sacral area that is a 10/10. kd3
--- NOTE | 2023-11-08 21:40 | EDPHYS ---
Physician Documentation [facility] Name: Halima Rao Age: 68 yrs Sex: Female : 1955 Arrival Date: 11/08/2023 Time: 19:48 Bed 12 Private MD: ED Physician Santiago Irvin HPI: 11/08 20:54 This 68 yrs old Female presents to ER via Wheelchair with complaints of Low sb4 Back Pain. 20:54 The patient presents with pain that is acute, and an injury. The symptoms are located sb4 in the low back. The pain does not radiate. The problem was sustained when bending over. Onset: The symptoms/episode began/occurred yesterday. The patient has experienced a previous episode. patient states she bent over to lift something heavy yesterday at work and hurt her back. she has been taking 800 mg ibuprofen and flexeril with minimal relief in symptoms. denies any bowel/bladder incontinence or saddle paresthesias. Historical: - PMHx: 20:07 Hypertensive disorder; kd3 - Immunization history:: Adult Immunizations up to date. - Social history:: Smoking status: unknown. ROS: 20:54 Constitutional: Negative for fever, chills, and weight loss, sb4 20:54 Back: Positive for injury or acute deformity, pain at rest, pain with movement, of the lumbar area and sacrum, Exam: 20:54 Constitutional: This is a well developed, well nourished patient who is awake, alert, sb4 and in no acute distress. Head/Face: Normocephalic, atraumatic. Eyes: Extra-ocular motions intact. Periorbital areas with no swelling, redness, or edema. ENT: Mucous membranes moist. Skin: Warm, dry with normal turgor. Normal color with no rashes, no lesions, and no evidence of cellulitis. MS/ Extremity: Pulses equal, no cyanosis. Neurovascular intact. Full, normal range of motion. Neuro: Awake and alert, GCS 15, oriented to person, place, time, and situation. Motor strength 5/5 in all extremities. Sensory grossly intact. 20:54 Back: pain, that is moderate, of the lumbar area and sacrum, ROM is painful, with all movement, normal spinal alignment noted, CVA tenderness, is absent, vertebral tenderness, is not appreciated, muscle spasm, is not present, Straight leg raises: pain bilaterally, Vital Signs: 20:04 BP 94 / 78; Pulse 71; Resp 16; Temp 97.9(TE); Pulse Ox 99% ; Weight 78.02 kg; Height 5 kd3 ft. 4 in. ; Pain 10/10; 20:04 Body Mass Index 29.52 (78.02 kg, 162.56 cm) kd3 20:04 Pain Scale: Adult kd3 MDM: 19:55 Patient medically screened. sb4 20:54 Differential diagnosis: strain, fracture, sciatica, contusion, Herniated disc. sb4 21:39 Data reviewed: vital signs, nurses notes, radiologic studies, and as a result, I will sb4 discharge patient. Counseling: I had a detailed discussion with the patient and/or guardian regarding the historical points, exam findings, and any diagnostic results supporting the discharge/admit diagnosis, radiology results, to return to the emergency department if symptoms worsen or persist or if there are any questions or concerns that arise at home. 11/08 20:08 Order name: CT Lumbar Spine Wo Con; Complete Time: 21:38 sb4 Administered Medications: 20:25 Drug: Ketorolac IM 30 mg IM once Route: IM; Site: right gluteus; kd3 20:25 Drug: Dexamethasone IM 10 mg IM once Route: IM; Site: left deltoid; kd3 20:25 Drug: Cyclobenzaprine PO 10 mg PO once Route: PO; kd3 Disposition Summary: 11/08/23 21:40 Discharge Ordered Notes: Location: Home sb4 Problem: new sb4 Symptoms: have improved sb4 Condition: Stable sb4 Diagnosis - Strain of muscle, fascia and tendon of lower back sb4 Followup: sb4 - With: Private Physician - When: As needed - Reason: Further diagnostic work-up, Recheck today's complaints, Re-evaluation by your physician Discharge Instructions: - Discharge Summary Sheet sb4 - Acute Back Pain, Adult sb4 - Low Back Sprain or Strain Rehab sb4 Forms: - Work release form sb4 - Medication Reconciliation Form sb4 - Thank You Letter sb4 - Antibiotic Education sb4 - Prescription Opioid Use sb4 - Patient Portal Instructions sb4 - Leadership Thank You Letter sb4 Prescriptions: - Cyclobenzaprine 10 mg Oral Tablet - take 1 tablet ORAL route every 8 hours As needed; 30 tablet; Refills: 0, sb4 Product Selection Permitted - Diclofenac Sodium 75 mg Oral Tablet Sustained Release - take 1 tablet ORAL route 2 times per day; 30 tablet; Refills: 0, Product sb4 Selection Permitted - Medrol (Ke) 4 mg Oral Tablets, Dose Pack - take 1 tablet ORAL route as directed - follow package instructions; 1 packet; sb4 Refills: 0, Product Selection Permitted Addendum: 11/10/2023 07:15 I was immediately available for consultation during this patient's visit. I did not e c2 personally see the patient or guide the patient's care. . Signatures: Dispatcher [employer] Susana Estevez RN RN kd3 Mague Nino PA-C PALionel sb4 Santiago Irvin MD MD ec2 Corrections: (The following items were deleted from the chart) 11/08 20:08 20:07 PMHx: hysterectcomy (Hypertensive disorder); kd3 kd3
[2023-11-09 01:16] VITALS: BP 94/78; TEMP 97.9; O2SAT 99
== END ==
LOC: ER 19:48
DX: S39.012A Strain of muscle, fascia and tendon of lower back, initial encounter (principal); I10 Essential (primary) hypertension
CPT/HCPCS: 72131; 96372; 99284; J1100

== ENCOUNTER 2025-08-27 17:47 | Observation (INO) | payer OTHER ==
[2025-08-27] MEDS ORDERED: NA CHLORIDE 0.9% 500 ML ONE (18:12)
[2025-08-27 18:16] LABS: Absolute Lymphocytes (CBC) 2.3 K/uL (0.7-4.9); Hematocrit 38.2 % (36.0-45.0); Hemoglobin 13.1 g/dL (12.0-15.0); MCH 30.9 pg (27.0-35.0); MCHC 34.3 g/dL (32.0-36.0); MCV 90.2 fL (80-100); MPV 9.0 fL (7.6-11.3); Nucleated RBC Absolute Count 0.0 (0-0); Nucleated Red Blood Cells % 0.1 % (0-0); RBC Red Blood Cell Count 4.23 M/uL (3.86-4.86); White Blood Count 6.20 thou/uL (4.3-10.9)
[2025-08-27 18:22] LABS: PT Prothrombin Time 12.3 SECONDS (10-13.0); Protime INR 1.09
--- NOTE | 2025-08-27 18:34 | RAD REPORT ---
EXAMINATION: ONE VIEW CHEST XR CLINICAL INDICATION: Female, 70 years old.,Chest pain;Palpitations TECHNIQUE: Frontal chest projection is submitted. Examination is limited by patient positioning and t echnique. COMPARISON: 03/26/2020 FINDINGS: The lungs are well inflated and clear. No pneumothorax or sizable effusion. The heart is normal in s ize. Mediastinal contours are unremarkable. IMPRESSION: No acute intrathoracic abnormalities.
--- NOTE | 2025-08-27 18:57 | ER ---
Nurse's Notes [facility] Name: Halima Rao Age: 70 yrs Sex: Female : 1955 Arrival Date: 08/27/2025 Time: 17:47 Bed 4 Private MD: Diagnosis: Anxiety disorder, unspecified;Chest pain, unspecified;Palpitations;Essential (primary) hypertension Presentation: 08/27 18:02 Chief complaint: Patient's son or daughter states: 3 hours ago pt c/o earlene leg pain, earlene cc6 hip pain and numbness to both feet, went to lie down for nap and became SOB and felt heart racing. pt denies chest pain, n/v. Coronavirus screen: At this time, the client does not indicate any symptoms associated with coronavirus-19. Ebola Screen: No symptoms or risks identified at this time. Initial Sepsis Screen: Does the patient meet any 2 criteria? No. Patient's initial sepsis screen is negative. Does the patient have a suspected source of infection? No. Patient's initial sepsis screen is negative. Risk Assessment: Do you want to hurt yourself or someone else? Patient reports no desire to harm self or others. Onset of symptoms was August 27, 2025 at 15:00. 18:02 Method Of Arrival: Wheelchair cc6 18:02 Acuity: RAZIA 3 cc6 Triage Assessment: 18:05 General: Appears distressed, Behavior is cooperative, appropriate for age, anxious. cc6 Pain: Complains of pain in left hip, right hip, right leg and left leg. Respiratory: Reports shortness of breath at rest on exertion air hunger Airway is patent Respiratory effort is even, labored, Respiratory pattern is regular, symmetrical, Onset: The symptoms/episode began/occurred today, the patient has moderate shortness of breath. Historical: - Allergies: 18:05 No Known Allergies; cc6 - PMHx: 18:05 Hypertensive disorder; Atrial fibrillation; Depressive disorder; Anxiety; Alzheimer's cc6 disease; - PSHx: 18:05 None; cc6 - Immunization history:: Adult Immunizations unknown. - Infectious Disease History:: Denies. - Social history:: Smoking status: Patient denies any tobacco usage or history of. Screenin:00 [facility] ED Fall Risk Assessment (Adult) History of falling in the last 3 months, db including since admission No falls in past 3 months (0 pts) Confusion or Disorientation No (0 pts) Intoxicated or Sedated No (0 pts) Impaired Gait No (0 pts) Mobility Assist Device Used No (0 pt) Altered Elimination No (0 pt) Score/Fall Risk Level 0 - 2 = Low Risk Oriented to surroundings, Maintained a safe environment. Abuse screen: Denies threats or abuse. Denies injuries from another. Nutritional screening: No deficits noted. Tuberculosis screening: No symptoms or risk factors identified. Assessment: 18:08 Reassessment: Patient appears in no apparent distress at this time. Patient and/or db family updated on plan of care and expected duration. Pain level reassessed. Patient is alert, oriented x 3, equal unlabored respirations, skin warm/dry/pink. General: Appears in no apparent distress. uncomfortable, Behavior is anxious. Neuro: Level of Consciousness is awake, alert, obeys commands, Oriented to person, place, time, situation. Respiratory: Airway is patent Respiratory effort is even, unlabored, Respiratory pattern is regular, symmetrical. 19:05 Neuro: Level of Consciousness is awake, alert, obeys commands, Oriented to person, nh2 place, time, situation, Reports headache numbness in soles of feet bilaterally. Cardiovascular: Reports chest pain, having episodes of palpitations that started this morning that come and go Patient's skin is warm and dry. Rhythm is sinus rhythm. Respiratory: Reports shortness of breath on exertion Breath sounds are clear bilaterally. Denies cough. GI: Abdomen is round obese, Bowel sounds present X 4 quads. Abd is soft and non tender X 4 quads. 19:05 : No signs and/or symptoms were reported regarding the genitourinary system. Denies nh2 burning with urination. EENT: No signs and/or symptoms were reported regarding the EENT system. Derm: Skin is pink, warm \T\ dry. Musculoskeletal: Circulation, motion, and sensation intact. Range of motion: intact in all extremities. 19:05 Pain: Complains of pain in chest Pain does not radiate. Pain currently is 5 out of 10 nh2 on a pain scale. Quality of pain is described as pressure, Pain began this morning Is intermittent. 20:00 Reassessment: Patient and/or family updated on plan of care and expected duration. Pain nh2 level reassessed. Patient is alert, oriented x 3, equal unlabored respirations, skin warm/dry/pink. 21:00 Reassessment: Patient and/or family updated on plan of care and expected duration. Pain nh2 level reassessed. Patient is alert, oriented x 3, equal unlabored respirations, skin warm/dry/pink. Patient states feeling better. 21:59 Reassessment: Patient and/or family updated on plan of care and expected duration. Pain nh2 level reassessed. Patient is alert, oriented x 3, equal unlabored respirations, skin warm/dry/pink. Patient states feeling better. Vital Signs: 18:00 BP 155 / 93; Pulse 75; Resp 18; Pulse Ox 100% on R/A; db 18:02 BP 159 / 93; Pulse 82; Resp 20; Temp 98.3; Pulse Ox 100% ; Weight 71 kg; cc6 18:38 BP 128 / 72; Pulse 68; Resp 18; Pulse Ox 97% on R/A; ph 19:31 BP 165 / 96; Pulse 65; Resp 20; Temp 98.3; Pulse Ox 100% ; Pain 4/10; bm8 20:08 BP 158 / 87; Pulse 63; Resp 21; Temp 98.3; Pulse Ox 98% ; Pain 0/10; bm8 21:00 BP 152 / 83; Pulse 60; Resp 14; Pulse Ox 100% on R/A; nh2 21:59 BP 141 / 89; Pulse 64; Resp 19; Temp 97.9(TE); Pulse Ox 99% on R/A; nh2 19:31 Pain Scale: Adult bm8 20:08 Pain Scale: Adult bm8 Philo Coma Score: 19:31 Eye Response: spontaneous(4). Motor Response: obeys commands(6). Verbal Response: bm8 oriented(5). Total: 15. 20:08 Eye Response: spontaneous(4). Motor Response: obeys commands(6). Verbal Response: bm8 oriented(5). Total: 15. ED Course: 17:49 Patient arrived in ED. im 17:54 Tyler Davalos MD is Attending Physician. rafael 18:05 Triage completed. cc6 18:05 Arm band placed on right wrist. cc6 18:07 Initial lab(s) drawn, by me, sent to lab. Inserted saline lock: 20 gauge in right db antecubital area, using aseptic technique. Blood collected. Flushed with 10 mL NS. 18:17 XRAY Chest (1 view) In Process Unspecified. EDMS 18:26 Angela Ye, RN is Primary Nurse. db 18:41 Patient has correct armband on for positive identification. Bed in low position. Call ph light in reach. Side rails up X 1. front desk monitor on. Pulse ox on. NIBP on. 18:55 Masha Pillai MD is Hospitalizing Provider. [facility] 19:05 Provided Education on: using call light for assistance. nh2 19:36 Rosendo Juares Jr, RN is Primary Nurse. nh2 20:14 No provider procedures requiring assistance completed. nh2 22:39 Patient admitted, IV remains in place. bm8 Administered Medications: 18:15 Drug: NS 0.9% IV 500 ml 500 ml IV at 1 bolus once; to be given as a bolus over 30 db minutes Volume: 500 ml; Route: IV; Rate: 1 bolus; Site: right antecubital; 20:08 Follow up: IV Status: Completed infusion; IV Intake: 500ml nh2 19:20 Drug: Enoxaparin Sub-Q 1 mg/kg Sub-Q once Route: Sub-Q; Site: right lower abdomen; bm8 20:00 Follow up: Response: No adverse reaction nh2 Medication: 18:00 VIS not applicable for this client. db Intake: 20:08 IV: 500ml; Total: 500ml. nh2 Outcome: 18:56 Decision to Hospitalize by Provider. [facility] 22:39 Admitted to Tele accompanied by nurse, via wheelchair, room 413, with chart, bm8 22:39 Condition: stable 22:39 Instructed on follow up and referral plans. the need for admit, Demonstrated understanding of instructions, follow-up care, medications, 22:40 Patient left the ED. bm8 Signatures: Dispatcher [employer] EDMS Tyler Davalos MD MD cha Hall, Patricia, RN JUNE Angela Ye, Jo Hirsch RN, Brad, RN RN bm8 Sarah Cronin RN RN cc6 Rosendo Juares Jr, RN RN nh2 Corrections: (The following items were deleted from the chart) 19:39 19:05 Respiratory: Breath sounds are clear bilaterally. Denies cough, shortness of nh2 breath nh2
--- NOTE | 2025-08-27 18:57 | EDPHYS ---
Physician Documentation [facility] Name: Halima Rao Age: 70 yrs Sex: Female : 1955 Arrival Date: 08/27/2025 Time: 17:47 Bed 4 Private MD: ED Physician Tyler Davalos HPI: 08/27 18:48 This 70 yrs old Female presents to ER via Wheelchair with complaints of rafael Shortness Of Breath, Palpitations. 18:48 The patient has shortness of breath at rest, with light activity. Onset: The rafael symptoms/episode began/occurred 2 day(s) ago. Duration: The symptoms are intermittent, with no pattern. The patient's shortness of breath is aggravated by nothing, is alleviated by nothing. Associated signs and symptoms: Pertinent positives: chest pain, dizziness, Pertinent negatives: fever. Severity of symptoms: At their worst the symptoms were mild in the emergency department the symptoms are unchanged. The patient has experienced similar episodes in the past, a few times. Historical: - Allergies: 18:05 No Known Allergies; cc6 - PMHx: 18:05 Hypertensive disorder; Atrial fibrillation; Depressive disorder; Anxiety; Alzheimer's cc6 disease; - PSHx: 18:05 None; cc6 - Immunization history:: Adult Immunizations unknown. - Infectious Disease History:: Denies. - Social history:: Smoking status: Patient denies any tobacco usage or history of. ROS: 18:49 Constitutional: Negative for fever, chills, and weight loss, Eyes: Negative for injury, rafael pain, redness, and discharge, ENT: Negative for injury, pain, and discharge, Neck: Negative for injury, pain, and swelling, Respiratory: Negative for shortness of breath, cough, wheezing, and pleuritic chest pain, Abdomen/GI: Negative for abdominal pain, nausea, vomiting, diarrhea, and constipation, Back: Negative for injury and pain, : Negative for injury, bleeding, discharge, and swelling, MS/Extremity: Negative for injury and deformity, Skin: Negative for injury, rash, and discoloration, Neuro: Negative for headache, weakness, numbness, tingling, and seizure, Psych: Negative for depression, anxiety, suicide ideation, homicidal ideation, and hallucinations, Allergy/Immunology: Negative for hives, rash, and allergies, Endocrine: Negative for neck swelling, polydipsia, polyuria, polyphagia, and marked weight changes, Hematologic/Lymphatic: Negative for swollen nodes, abnormal bleeding, and unusual bruising, 18:49 Cardiovascular: Positive for chest pain, palpitations, 18:49 MS/extremity: Negative for acute changes, Exam: 18:49 Constitutional: This is a well developed, well nourished patient who is awake, alert, rafael and in no acute distress. Head/Face: Normocephalic, atraumatic. Eyes: Pupils equal round and reactive to light, extra-ocular motions intact. Lids and lashes normal. Conjunctiva and sclera are non-icteric and not injected. Cornea within normal limits. Periorbital areas with no swelling, redness, or edema. ENT: Nares patent. No nasal discharge, no septal abnormalities noted. Tympanic membranes are normal and external auditory canals are clear. Oropharynx with no redness, swelling, or masses, exudates, or evidence of obstruction, uvula midline. Mucous membranes moist. Neck: Trachea midline, no thyromegaly or masses palpated, and no cervical lymphadenopathy. Supple, full range of motion without nuchal rigidity, or vertebral point tenderness. No Meningismus. Chest/axilla: Normal chest wall appearance and motion. Nontender with no deformity. No lesions are appreciated. Cardiovascular: Regular rate and rhythm with a normal S1 and S2. No gallops, murmurs, or rubs. Normal PMI, no JVD. No pulse deficits. Respiratory: Lungs have equal breath sounds bilaterally, clear to auscultation and percussion. No rales, rhonchi or wheezes noted. No increased work of breathing, no retractions or nasal flaring. Abdomen/GI: Soft, non-tender, with normal bowel sounds. No distension or tympany. No guarding or rebound. No evidence of tenderness throughout. Back: No spinal tenderness. No costovertebral tenderness. Full range of motion. Female : Normal external genitalia. Skin: Warm, dry with normal turgor. Normal color with no rashes, no lesions, and no evidence of cellulitis. MS/ Extremity: Pulses equal, no cyanosis. Neurovascular intact. Full, normal range of motion., bilateral aka Neuro: Awake and alert, GCS 15, oriented to person, place, time, and situation. Cranial nerves II-XII grossly intact. Motor strength 5/5 in all extremities. Sensory grossly intact. Cerebellar exam normal. Normal gait. Psych: Awake, alert, with orientation to person, place and time. Behavior, mood, and affect are within normal limits. 18:49 ECG was reviewed by the Attending Physician. 18:49 Musculoskeletal/extremity: ROM: no acute changes, intact in all extremities, Circulation is intact in all extremities. Pulses: are normal with no appreciated deficits, Sensation intact. Compartment Syndrome exam of affected extremity: is normal. Weight bearing: able to fully bear weight, DVT Exam: No signs of deep vein thrombosis. no pain, no swelling, no tenderness, negative Homans' sign noted on exam, no appreciated bluish discoloration, no erythema, no increased warmth, 18:58 ECG was reviewed by the Attending Physician. [facility] Vital Signs: 18:00 BP 155 / 93; Pulse 75; Resp 18; Pulse Ox 100% on R/A; db 18:02 BP 159 / 93; Pulse 82; Resp 20; Temp 98.3; Pulse Ox 100% ; Weight 71 kg; cc6 18:38 BP 128 / 72; Pulse 68; Resp 18; Pulse Ox 97% on R/A; ph 19:31 BP 165 / 96; Pulse 65; Resp 20; Temp 98.3; Pulse Ox 100% ; Pain 4/10; bm8 20:08 BP 158 / 87; Pulse 63; Resp 21; Temp 98.3; Pulse Ox 98% ; Pain 0/10; bm8 21:00 BP 152 / 83; Pulse 60; Resp 14; Pulse Ox 100% on R/A; nh2 21:59 BP 141 / 89; Pulse 64; Resp 19; Temp 97.9(TE); Pulse Ox 99% on R/A; nh2 19:31 Pain Scale: Adult bm8 20:08 Pain Scale: Adult bm8 [place] Coma Score: 19:31 Eye Response: spontaneous(4). Motor Response: obeys commands(6). Verbal Response: bm8 oriented(5). Total: 15. 20:08 Eye Response: spontaneous(4). Motor Response: obeys commands(6). Verbal Response: bm8 oriented(5). Total: 15. MDM: 17:54 Medical Screening Exam initiated [facility] 18:52 Differential diagnosis: Anemia Anxiety Reaction asthma, Bronchitis CHF exacerbation, rafael Chronic Obstructive Pulmonary Disease abnormal EKG, acute myocardial infarction, acute pericarditis, anxiety, coronary artery disease chest wall pain, congestive heart failure cholecystitis, Cholelithiasis costochondritis, arrythmia, dehydration, esophagitis, gastritis, gastroesophageal reflux disease (GERD), herpes zoster, hiatal hernia, Millicent-Knowles syndrome, mitral valve prolapse, pancreatitis, peptic ulcer disease, pleurisy, pneumothorax, pulmonary embolus, stable angina, thoracic aortic disection, unstable angina, Myocardial Infarction pneumonia, Pneumothorax Psychogenic pulmonary edema, Pulmonary Embolism reactive airway disease, Sepsis Unstable Angina. Antibiotic administration: Not indicated. HEART Score: History: Slightly Suspicious (0), ECG: Non specific repolarization disturbance / LBTB / PM (1), Age: > or = 65 years (2), Risk Factors: > or = 3 Risk factors for atherosclerotic disease (2), [Hypercholesterolemia] [Hypertension] [+ Family HX] [Obesity] Troponin: < or = 1 x Normal Limit (0). The patient was given aspirin in the Emergency Department. DREAD Risk Score: 1 - patient's age is greater or equal to 65 years, 1 - Three or more CAD risk factors, 1- Known CAD, 1 - Recent [<24hrs] Severe Angina, TOTAL SCORE = 4. Immunization status: Pneumococcal vaccine: within last 5 years. Influenza vaccine: Data reviewed: vital signs, nurses notes, lab test result(s), EKG, radiologic studies, plain films. 08/27 17:58 Order name: Basic Metabolic Panel; Complete Time: 20:29 [facility] 08/27 17:58 Order name: CBC with Diff; Complete Time: 18:47 [facility] 08/27 17:58 Order name: LFT's; Complete Time: 20:29 [facility] 08/27 17:58 Order name: Magnesium; Complete Time: 20:29 [facility] 08/27 17:58 Order name: NT PRO-BNP; Complete Time: 20:29 [facility] 08/27 17:58 Order name: PT-INR; Complete Time: 18:47 [facility] 08/27 17:58 Order name: Troponin HS; Complete Time: 20:29 [facility] 08/27 17:58 Order name: Lipase; Complete Time: 20:29 [facility] 08/27 17:58 Order name: UA Rfx Amari Cult if indicated [facility] 08/27 17:58 Order name: TSH; Complete Time: 20:29 [facility] 08/27 21:43 Order name: Potassium EDMS 08/27 21:50 Order name: CBC with Automated Diff EDMS 08/27 21:50 Order name: CBC with Automated Diff EDMS 08/27 21:50 Order name: CBC with Automated Diff EDMS 08/27 21:50 Order name: Comprehensive Metabolic Panel EDMS 08/27 21:50 Order name: Comprehensive Metabolic Panel EDMS 08/27 21:50 Order name: Comprehensive Metabolic Panel EDMS 08/27 21:50 Order name: Magnesium EDMS 08/27 21:50 Order name: Magnesium EDMS 08/27 21:50 Order name: Magnesium EDMS 08/27 21:50 Order name: Phosphorus EDMS 08/27 21:50 Order name: Phosphorus EDMS 08/27 21:50 Order name: Phosphorus EDMS 08/27 17:58 Order name: XRAY Chest (1 view); Complete Time: 18:47 rafael 08/27 21:44 Order name: Echo with Doppler EDMS 08/27 21:44 Order name: Echo with Doppler EDMS 08/27 21:46 Order name: Knee Left 3 View EDMS 08/27 21:47 Order name: Knee Right 3 View EDMS 08/27 17:58 Order name: Cardiac monitoring; Complete Time: 18:07 rafael 08/27 17:58 Order name: EKG - Nurse/Tech; Complete Time: 18:07 rafael 08/27 17:58 Order name: IV Saline Lock; Complete Time: 18:07 rafael 08/27 17:58 Order name: Labs collected and sent; Complete Time: 18:07 rafael 08/27 17:58 Order name: O2 Per Protocol; Complete Time: 18:07 rafael 08/27 17:58 Order name: O2 Sat Monitoring; Complete Time: 18:07 [facility] EC:58 Rate is 82 beats/min. Rhythm is regular. QRS [place] is Normal. [place] interval is shortened rafael at 100 msec. QRS interval is normal. QT interval is normal. No Q waves. T waves are Normal. No ST changes noted. Clinical impression: NSR w/ Non-specific ST/T Changes and No evidence of ischemia. Interpreted by me. Reviewed by me. Administered Medications: 18:15 Drug: NS 0.9% IV 500 ml 500 ml IV at 1 bolus once; to be given as a bolus over 30 db minutes Volume: 500 ml; Route: IV; Rate: 1 bolus; Site: right antecubital; 20:08 Follow up: IV Status: Completed infusion; IV Intake: 500ml nh2 19:20 Drug: Enoxaparin Sub-Q 1 mg/kg Sub-Q once Route: Sub-Q; Site: right lower abdomen; bm8 20:00 Follow up: Response: No adverse reaction nh2 Disposition Summary: 08/27/25 18:56 Hospitalization Ordered Notes: Hospitalization Status: Observation rafael Provider: Masha Pillai cha Location: Telemetry/MedSurg (observation) rafael Condition: Fair rafael Problem: new rafael Symptoms: have improved rafael Bed/Room Type: Standard rafael Room Assignment: 413(08/27/25 21:49) vc1 Diagnosis - Anxiety disorder, unspecified rafael - Chest pain, unspecified rafael - Palpitations rafael - Essential (primary) hypertension rafael Forms: - Medication Reconciliation Form rafael - SBAR form rafael - Leadership Thank You Letter rafael Signatures: Dispatcher [employer] EDMS Tyler Davalos MD MD cha Page, Corey, WENC PAJuanC Misty Bradley RN RN vc1 Angela Ye, RN RN db Ernesto Poe, RN RN bm8 Sarah Cronin, RN RN cc6 Rosendo Juares Jr, RN nh2 Corrections: (The following items were deleted from the chart) 17:59 17:59 BASIC METABOLIC PANEL+C.LAB.BRZ ordered. EDMS EDMS 17:59 17:59 CBC+H.LAB.BRZ ordered. EDMS EDMS 17:59 17:59 HEPATIC FUNCTION+C.LAB.BRZ ordered. EDMS EDMS 17:59 17:59 MAGNESIUM+C.LAB.BRZ ordered. EDMS EDMS 17:59 17:59 PROBNP+C.LAB.BRZ ordered. EDMS EDMS 17:59 17:59 PROTIME (+INR)+COAG.LAB.BRZ ordered. EDMS EDMS 17:59 17:59 Troponin High Sensitivity+C.LAB.BRZ ordered. EDMS EDMS 17:59 17:59 LIPASE+C.LAB.BRZ ordered. EDMS EDMS 17:59 17:59 UA Rfx Amari Cult if indicated+U.LAB.BRZ ordered. EDMS EDMS 17:59 17:59 THYROID STIMULAT HORMONE+C.LAB.BRZ ordered. EDMS EDMS 17:59 17:59 Chest Single View+RAD.RAD.BRZ ordered. EDMS EDMS 21:49 18:56 rafael vc1
[2025-08-27 19:03] LABS: ALT/SGPT 25 U/L (13-56); AST/SGOT 16 U/L (15-37); Albumin 3.5 g/dL (3.4-5.0); Albumin/Globulin Ratio 1.0 (1.1-1.8); Alkaline Phosphatase 85 U/L (45-117); Anion Gap 12.2 mEq/L (5.0-15.0); BUN Blood Urea Nitrogen 16 mg/dL (7-18); Bilirubin Indirect, Calculated 0.0 mg/dL (0.2-0.8); Globulin 3.6 g/dL (2.3-3.5); Glucose Level 132 mg/dL (74-106); Lipase 43 U/L (13-75); Magnesium 2.0 mg/dL (1.6-2.4); NT PRO-BNP 108 pg/mL (<125); Potassium 3.2 mEq/L (3.5-5.1); Thyroid Stimulating Hormone 2.130 uIU/mL (0.358-3.740); Troponin High Sensitivity 5.5 pg/mL (<58.9)
[2025-08-27] MEDS ORDERED: ENOXAPARIN 80 MG/0.8 ML SQ ONE (19:06)
[2025-08-27 20:51] LABS: Urine Microscopic Reflex YN NO UMIC
[2025-08-27] MEDS: POTASSIUM CL SA 10 MEQ TAB PO ONE (21:41)
[2025-08-27] MEDS ORDERED: ACETAMINOPHEN 325 MG TABLET PO PRN (21:45)
--- NOTE | 2025-08-27 21:52 | P.HP ---
Certification for Inpatient Patient admitted to: Observation With expected LOS: <2 Midnights Patient will require the following post-hospital care: None Practitioner: I am a practitioner with admitting privileges, knowledge of patient current condition, hospital course, and medical plan of care. Services: Services provided to patient in accordance with Admission requirements found in Title 42 Section 412.3 of the Code of Federal Regulations Patient History Date of Service: 08/27/25 Reason for admission: Palpitations, bilateral knee pain. History of Present Illness: Patient is a [id number] female predominantly Iranian-speaking only, with past medical history of Alzheimer's, essential hypertension, hypothyroidism, hypercholesteremia, brought to the ER complaining of palpitations, and bilateral knee pain. Patient states she started having severe palpitations in the morning, states progressively worsening throughout the day which then prompted her to report to ER. States she have had previous palpitations in the past but not as severe as the palpitations today. Patient states she has been having bilateral knee pain, states the pain is affecting her ambulation, states the pain was more severe today. Describes the pain as aching, and throbbing,and initial pain intensity was 6/10. During admission assessment, patient was fully awake, alert and oriented x 3, able to communicate and answer all questions appropriately. Patient was sinus rhythm heart rate in the 70s to 80s, endorses pain both knees, no sign of cellulitis or DVT noted, bilateral dorsalis pedis pulses palpable. Allergies No Known Allergies Allergy (Unverified 02/16/16 02:10) Home Medications: Atorvastatin Calcium [Lipitor*] 10 mg PO DAILY 08/28/25 Citalopram [Celexa*] 20 mg PO DAILY 08/28/25 Levothyroxine [Synthroid*] 1 tab PO DAILY 08/28/25 Lisinopril [Zestril] 10 mg PO DAILY 08/28/25 Memantine HCl [Namenda*] 1 tab PO DAILY 08/28/25 carvediloL [Coreg*] 1 tab PO BID 08/28/25 - Past Medical/Surgical History Diabetic: No -: Hypothyroidism -: Hypertension -: Depression -: Hypercholesterolemia. -: Alzheimer's. -: HYSTERECTOMY Psychosocial/ Personal History: Patient lives at home with her - Family History Mother -: Cancer (colon) - Social History Smoking Status: Never smoker Alcohol use: No CD- Drugs: No Caffeine use: No Place of Residence: Home Review of Systems 10-point ROS is otherwise unremarkable Cardiovascular: Palpitations Genitourinary: Other (Bilateral knee pain.) Physical Examination - Physical Exam General: Alert, In no apparent distress, Oriented x3, Cooperative HEENT: Atraumatic, Normocephalic, PERRLA, Mucous membr. moist/pink, Sclerae nonicteric Neck: Supple, 2+ carotid pulse no bruit, JVD not distended, No Thyromegaly, Without JVD or thyroid abnormality Respiratory: Clear to auscultation bilaterally, Normal air movement Cardiovascular: No edema, Normal pulses, Regular rate/rhythm, Normal S1 S2, No gallops, No rubs, No murmurs Gastrointestinal: Normal bowel sounds, Soft and benign, Non-distended, W/out hepatomegaly, No ascites, No tenderness, No masses, No rebound, No guarding Musculoskeletal: No clubbing, No swelling, No contractures, No erythema, No t enderness, No warmth Integumentary: No rashes, No breakdown, No significant lesion, No tenderness/swelling, No erythema, No warmth, No cyanosis Neurological: Normal gait, Normal speech, Normal strength at 5/5 x4 extr, Normal tone, Sensation intact, Cranial nerves 3-12 intact, Normal reflexes 2+, Normal affect Lymphatics: No axilla or inguinal lymphadenopathy - Studies Laboratory Data (last 24 hrs) 08/27/25 08/27/25 08/27/25 18:07 18:07 18:07 WBC 6.20 Hgb 13.1 Hct 38.2 Plt Count 183 PT 12.3 INR 1.09 Sodium 140 Potassium 3.2 L BUN 16 Creatinine 0.82 Glucose 132 H Magnesium 2.0 Total Bilirubin 0.2 AST 16 ALT 25 Alkaline Phosphatase 85 Lipase 43 Female Exam - Breasts Breasts: Normal configuration, Normal contours, Symmetrical Assessment and Plan - Plan Patient admitted to observation with diagnosis of palpitations, and bilateral knee pain. (1)Palpitations and bilateral knee pain. -Cardiology consult. -Telemetry. -Started on small dose of metoprolol 12.5 mg p.o. -Order echocardiogram. (2)Bilateral knee pain. - Order bilateral knee x-ray 3 views. X-ray impression no evidence of acute osseous abnormality. -Consult physical therapy for ambulation and endurance. (3)Chronic hypertension. -Continue home lisinopril 10 mg p.o. daily. (4) chronic hypothyroidism. -Continue levothyroxine 0.088 mg daily. (5) chronic hypercholesteremia. -Continue atorvastatin 10 mg p.o. daily. (6) chronic Alzheimer's. -Continue memantine 10 mg p.o. daily. (7)explained entire treatment plan to the patient, solicited questions answered and voiced understanding. Discharge Plan: Home Plan to discharge in: 48 Hours - Advance Directives Does patient have a Living Will: No Does patient have a Durable POA for Healthcare: No - Code Status/Comfort Care Code Status Assessed: Yes Code Status: Full Code Critical Care: No Time Spent Managing Pts Care (In Minutes): 55
[2025-08-27] MEDS: NA CHLORIDE 0.9% 1,000 ML IV SCH (22:00)
[2025-08-27] MEDS ORDERED: POTASSIUM CL SA 10 MEQ TAB PO ONE (22:16)
[2025-08-27] MEDS ORDERED: NA CHLORIDE 0.9% 1,000 ML ONE (22:17)
[2025-08-27 23:26] VITALS: O2SAT 99
--- NOTE | 2025-08-27 23:29 | RAD REPORT ---
EXAM: XR Knee Left 3 View HISTORY: [facility] MAIN Severe pain COMPARISON: 07/27/2022 TECHNIQUE: 3 views of the left knee were obtained. FINDINGS: No knee effusion is seen. There is no evidence of acute fracture or dislocation. No signif icant degenerative changes are seen. No soft tissue swelling or other soft tissue abnormality is present. IMPRESSION: No evidence of acute osseous abnormality.
--- NOTE | 2025-08-27 23:29 | RAD REPORT ---
EXAM: XR Knee Right 3 View HISTORY: [facility] MAIN Severe Pain COMPARISON: 07/27/2022 TECHNIQUE: 3 views of the right knee were obtained. FINDINGS: No knee effusion is seen. There is no evidence of acute fracture or dislocation. No signif icant degenerative changes are seen. No soft tissue swelling or other soft tissue abnormality is present. IMPRESSION: No evidence of acute osseous abnormality.
[2025-08-28 00:52] VITALS: BMI 27.7
[2025-08-28 05:41] LABS: Absolute Lymphocytes (CBC) 2.0 K/uL (0.7-4.9); Hematocrit 34.7 % (36.0-45.0); Hemoglobin 11.6 g/dL (12.0-15.0); MCH 30.4 pg (27.0-35.0); MCHC 33.3 g/dL (32.0-36.0); MCV 91.2 fL (80-100); MPV 9.3 fL (7.6-11.3); Nucleated RBC Absolute Count 0.0 (0-0); Nucleated Red Blood Cells % 0.0 % (0-0); RBC Red Blood Cell Count 3.81 M/uL (3.86-4.86); White Blood Count 4.60 thou/uL (4.3-10.9)
[2025-08-28 05:59] LABS: ALT/SGPT 20.0 U/L (13-56); AST/SGOT 11.0 U/L (15-37); Albumin 2.9 g/dL (3.4-5.0); Albumin/Globulin Ratio 1.0 (1.1-1.8); Alkaline Phosphatase 60.0 U/L (45-117); Anion Gap 6.0 mEq/L (5.0-15.0); BUN Blood Urea Nitrogen 17.0 mg/dL (7-18); Globulin 3.0 g/dL (2.3-3.5); Glucose Level 101.0 mg/dL (74-106); Magnesium 2.2 mg/dL (1.6-2.4); Potassium 4.0 mEq/L (3.5-5.1)
[2025-08-28] MEDS: ENOXAPARIN 40 MG/0.4 ML SQ SCH (08:45)
[2025-08-28] MEDS: ATORVASTATIN 10 MG TAB PO SCH (08:45)
[2025-08-28] MEDS: CITALOPRAM 10 MG TABLET PO SCH (08:46)
[2025-08-28] MEDS: MEMANTINE HCL 10 MG TABLET PO SCH (08:46)
[2025-08-28] MEDS: LEVOTHYROXINE SOD 0.088 MG TAB PO SCH (08:47)
--- NOTE | 2025-08-28 11:10 | P.DS ---
Admission Date: 08/27/25 Discharge Date: 08/28/25 Disposition: ROUTINE DISCHARGE Discharge Condition: FAIR Reason for Admission: Palpitations, bilateral knee pain. Brief History of Present Illness: [id number] woman with past medical history of Alzheimer's, essential hypertension, hypothyroidism, hypercholesteremia, presented to the ER complaining of palpitations, and bilateral knee pain. Patient stated she has had previous palpitations in the past. During admission assessment, patient was fully awake, alert and oriented x 3, able to communicate and answer all questions appropriately. Patient was sinus rhythm heart rate in the 70s to 80s, endorses pain both knees, no sign of cellulitis or DVT noted, bilateral dorsalis pedis pulses palpable. Patient was hospitalized for further evaluation and management. Hospital Course: Diagnosis Palpitations Osteoarthritis Essential hypertension Hypothyroidism Hyperlipidemia Patient placed on observation on the medical floor on telemetry. fire battalion chief showed sinus with with heart rate ranging from 60-70. Patient was seen and evaluated by cardiology Dr. Irvin who recommended Toprol-XL. Patient also deemed stable for discharge per cardiology. Echocardiogram was done and a result is pending. Blood pressure during the hospital stay was stable. TSH was within normal limits. Patient is discharged with her home medications for her chronic medical problems. Vital Signs/Physical Exam: Temp Pulse Resp BP Pulse Ox 97.5 F 58 12 119/77 98 08/28/25 08:00 08/28/25 08:46 08/28/25 08:00 08/28/25 08:46 08/28/25 08:00 General: Alert, In no apparent distress, Oriented x3 HEENT: Mucous membr. moist/pink, Sclerae nonicteric Neck: Supple, JVD not distended Respiratory: Clear to auscultation bilaterally, Normal air movement Cardiovascular: No edema, Regular rate/rhythm, Normal S1 S2 Gastrointestinal: Normal bowel sounds, Soft and benign, No tenderness Musculoskeletal: No swelling, No tenderness Integumentary: No rashes, No cyanosis Neurological: Normal speech, Normal strength at 5/5 x4 extr Laboratory Data at Discharge: WBC 4.60 thou/uL (4.3-10.9) 08/28/25 05:02 Hgb 11.6 g/dL (12.0-15.0) L D 08/28/25 05:02 Hct 34.7 % (36.0-45.0) L 08/28/25 05:02 Plt Count 159 thou/uL (152-406) 08/28/25 05:02 PT 12.3 SECONDS (10-13.0) 08/27/25 18:07 INR 1.09 08/27/25 18:07 Sodium 143 mEq/L (136-145) 08/28/25 05:02 Potassium 3.9 mEq/L (3.5-5.1) 08/28/25 05:02 Potassium 4.0 mEq/L (3.5-5.1) D 08/28/25 05:02 BUN 17 mg/dL (7-18) 08/28/25 05:02 Creatinine 0.62 mg/dL (0.55-1.02) 08/28/25 05:02 Glucose 101 mg/dL (74-106) 08/28/25 05:02 Phosphorus 3.6 mg/dL (2.5-4.9) 08/28/25 05:02 Magnesium 2.2 mg/dL (1.6-2.4) 08/28/25 05:02 Total Bilirubin 0.3 mg/dL (0.2-1.0) 08/28/25 05:02 AST 11 U/L (15-37) L 08/28/25 05:02 ALT 20 U/L (13-56) 08/28/25 05:02 Alkaline Phosphatase 60 U/L (45-117) D 08/28/25 05:02 Lipase 43 U/L (13-75) 08/27/25 18:07 Home Medications: Atorvastatin Calcium [Lipitor*] 10 mg PO DAILY 08/28/25 Citalopram [Celexa*] 20 mg PO DAILY 08/28/25 Levothyroxine [Synthroid*] 1 tab PO DAILY 08/28/25 Lisinopril [Zestril] 10 mg PO DAILY 08/28/25 Memantine HCl [Namenda*] 1 tab PO DAILY 08/28/25 Metoprolol Succinate [Toprol Xl] 25 mg PO DAILY #30 tab 08/28/25 New Medications: Metoprolol Succinate [Toprol Xl] 25 mg PO DAILY #30 tab Physician Discharge Instructions: PROBLEM: Palpitations, Both knee pains GOAL: Clear understanding of disease process INSTRUCTIONS: FOLLOW UP WITH CARDIOLOGY IN 1 TO 2 WEEKS Diet: heart healthy diet Activity: Fall precautions Diet: AHA Activity: Fall precautions Followup: Sanya Irvin MD [ACTIVE - CAN ADMIT] - 1-2 Weeks NONE,NONE [Primary Care Provider] - 1-2 Weeks (See list of local family doctors included.) Time spent managing pt's care (in minutes): 27
[2025-08-28 12:09] VITALS: BP 141/69; TEMP 97.9
--- NOTE | 2025-08-28 13:08 | P.CNS ---
Date of Consult: 08/28/25 Chief Complaint: Palpitations, bilateral knee pain. History of Present Illness: Patient with PMH of HTN, presented with palpitations that has been going on for few weeks but got worse yesterday, denies chest pain, no syncope, no breathing problems. Allergies No Known Allergies Allergy (Unverified 02/16/16 02:10) Home medications list reviewed: Yes Home Medications: Atorvastatin Calcium [Lipitor*] 10 mg PO DAILY 08/28/25 Citalopram [Celexa*] 20 mg PO DAILY 08/28/25 Levothyroxine [Synthroid*] 1 tab PO DAILY 08/28/25 Lisinopril [Zestril] 10 mg PO DAILY 08/28/25 Memantine HCl [Namenda*] 1 tab PO DAILY 08/28/25 Metoprolol Succinate [Toprol Xl] 25 mg PO DAILY #30 tab 08/28/25 - Past Medical/Surgical History Diabetic: No -: Hypothyroidism -: Hypertension -: Depression -: Hypercholesterolemia. -: Alzheimer's. -: HYSTERECTOMY Psychosocial/ Personal History: Patient lives at home with her - Family History Mother Medical History: Cancer (colon) - Social History Smoking Status: Unknown if ever smoked Alcohol use: No CD- Drugs: No Caffeine use: No Place of Residence: Home Review of Systems 10-point ROS is otherwise unremarkable Physical Examination Temp Pulse Resp BP Pulse Ox 97.9 F 61 16 141/69 H 99 08/28/25 12:00 08/28/25 12:00 08/28/25 12:00 08/28/25 12:00 08/28/25 12:00 General: Alert, In no apparent distress HEENT: Atraumatic, PERRLA, Mucous membr. moist/pink, EOMI, Sclerae nonicteric Neck: Supple, 2+ carotid pulse no bruit, No LAD, Without JVD or thyroid abnormality Respiratory: Clear to auscultation bilaterally, Normal air movement Cardiovascular: Regular rate/rhythm, Normal S1 S2 Gastrointestinal: Normal bowel sounds, No tenderness Musculoskeletal: No tenderness Integumentary: No rashes Neurological: Normal gait, Normal speech, Normal tone, Normal affect Lymphatics: No axilla or inguinal lymphadenopathy Laboratory Data (last 24 hrs) 08/27/25 08/27/25 08/27/25 18:07 18:07 18:07 WBC 6.20 Hgb 13.1 Hct 38.2 Plt Count 183 PT 12.3 INR 1.09 Sodium 140 Potassium 3.2 L BUN 16 Creatinine 0.82 Glucose 132 H Magnesium 2.0 Total Bilirubin 0.2 AST 16 ALT 25 Alkaline Phosphatase 85 Lipase 43 - Problems (1) Palpitations Current Visit: Yes Status: Acute Plan: patient EKG and tele show sinus rhythm start Toprol XL 25 mg daily outpatient follow up with cardiology for event monitor (2) Hypertension Current Visit: No Status: Chronic Plan: stop coreg start Toprol XL 25 mg daily continue lisiniopril. Qualifiers: Hypertension type: primary hypertension Qualified Code(s): I10 - Essential (primary) hypertension
== END 2025-08-28 14:37 | disposition home or self-care (01) ==
LOC: ER 17:47 → ERHOLD 21:38 → 4TH 22:10
PROVIDERS: ADMIT Internal Medicine; ATTEND Internal Medicine
DX: R00.2 Palpitations (principal); M25.562 Pain in left knee; M25.561 Pain in right knee; I10 Essential (primary) hypertension; E03.9 Hypothyroidism, unspecified; E78.00 Pure hypercholesterolemia, unspecified; G30.9 Alzheimer's disease, unspecified; F02.80 Dementia in other diseases classified elsewhere, unspecified severity, without behavioral disturbance, psychotic disturbance, mood disturbance, and anxiety; M19.90 Unspecified osteoarthritis, unspecified site; E78.5 Hyperlipidemia, unspecified
CPT/HCPCS: 36415; 71045; 80048; 80053; 80076; 81003; 83690; 83735; 83880; 84100; 84132; 84443; 84484; 85025; 85610; 93005; 93306; 96360; 96361; 96372; 99285; J1650; J7030; J7040